=== PATIENT | male | born 1945 | race Caucasian/White ===

== ENCOUNTER 2019-07-01 19:36 | Inpatient (IN) ==
--- NOTE | 2019-07-01 20:06 | Emergency Department Note ---
History of Present Illness General Chief complaint: Hematuria Stated complaint: HEMATURIA Time Seen by Provider: 07/01/19 19:37 Source: patient and EMS Mode of arrival: EMS Limitations: altered mental status History of Present Illness Provider complaint: Hematuria, urinary frequency Onset (ago): day(s) 5 Location: abdomen Pain Consistency: + colicky Current Pain Intensity: 0 Relieved By: + none Exacerbated By: + none Associated symptoms: + denies other symptoms Treatments prior to arrival: none This is a 74-year-old male from [facility] who presents via EMS with complaints of hematuria. Per EMS when they picked the patient up in the [facility], they were told that patient had complained of hematuria for 5 days. They tried to perform a straight cath in the [facility] and were unsuccessful. They state the patient is on blood thinners, Coumadin. There is also reported confusion. Patient here knows his name, does not know the date, and tells me that he is only had hematuria for 1 day instead. Patient denies any prior history of kidney stones, urine infections, or any other problems with his kidneys. Patient admits to intermittent abdominal pain over the last several days. Denies any back pain. Denies fevers or chills. EMS reports that his temperature in the [facility] was 99.2. EMS also reports the infirmary had started IV fluids and the patient, however much of this appears to have infiltrated into his upper extremity near the IV site. HPI limited by confusion. Additional paperwork from nursing home also noted pt had outpt labs done earlier today as well. No paper results accompanying but were found in our EMR. Pt with WBC 19 from earlier today. Pt seen during a time of high acuity and national emergency pandemic while wearing PPE. Home Medications Home Medications Medication Instructions Recorded Confirmed Type ciclesonide [Alvesco] 1 puff INHALATION BID 07/01/19 07/01/19 History diltiazem HCl 30 mg PO TID 07/01/19 07/01/19 History levalbuterol tartrate [Xopenex HFA] 2 inh INHALATION QID 07/01/19 07/01/19 History levothyroxine 137 mcg PO QAM 07/01/19 07/01/19 History rosuvastatin 40 mg PO QPM 07/01/19 07/01/19 History sertraline 75 mg PO QAM 07/01/19 07/01/19 History sulfamethoxazole-trimethoprim 1 tab PO BID 07/01/19 07/01/19 History [Bactrim DS] warfarin 5 mg PO QPM 07/01/19 07/01/19 History Allergies Allergy/AdvReac Type Severity Reaction Status Date / Time No Known Allergies Allergy Verified 07/01/19 19:55 Past Med/Surg History Medical History COPD (chronic obstructive pulmonary disease) Dyslipidemia Hypertension Hypothyroid Neurocognitive disorder Family History Sister Seizures Other No significant family history Social History Preferred Language: Indonesian Communication Ability: Effective Business Risk Consultant Required: No Beliefs That Will Affect Care: None Current Living Situation: Other Current Living Situation Comment: Half-Way Feels Safe at Home: Yes Smoking Status: Unknown if ever smoked Hx Alcohol Use: No Hx Substance Use: No Review of Systems Unobtainable due to cognitive status Physical Exam Vital Signs Vital Signs - 24 hr 07/01/19 19:52 Temperature 37.1 C Temperature Source Oral Pulse Rate 97 H Respiratory Rate 20 Respiratory Effort / Characteristics Non-Labored Spontaneous Respiratory Depth Normal Respiratory Pattern Regular Blood Pressure 156/62 H Blood Pressure Mean 93 Pulse Oximetry 94 Oxygen Delivery Method Room Air Sepsis Recent Fever Within 48 Hours No Sepsis New/Unexplained Change in Mental Status No Sepsis Action Taken by Nursing No Action Required GENERAL: alert, well appearing, well nourished, no distress, non-toxic EYE EXAM: normal conjunctiva, PERRL and EOM's grossly intact OROPHARYNX: no exudate, no erythema, lips, buccal mucosa, and tongue normal and mucous membranes are moist NECK: supple, no nuchal rigidity, no adenopathy, non-tender LUNGS: Clear but decreased to auscultation. Normal chest wall mechanics, no w/r/r HEART: no murmurs, S1 normal and S2 normal ABDOMEN: abdomen soft, non-tender, normo-active bowel sounds, no masses, no rebound or guarding. BACK: Back is symmetrical on inspection and there is no deformity, no midline tenderness, no CVA tenderness. SKIN: no rashes and no bruising UPPER EXTREMITIES: upper extremities are grossly normal. FROM, nml pulses b/l. LOWER EXTREMITIES: No pitting edema. FROM, nml pulses b/l. NEURO EXAM: Pleasantly confused, cranial nerves II-XII grossly intact, normal speech, no gross weakness of arms, no gross weakness of legs. Gross sensation intact. Course Course 1954: Bedside ultrasound performed to evaluate the bladder and kidneys. No obvious renal stones or hydro. Bedside bladder scan by nursing staff with <50 ml and pt urinated a small amount on arrival here. No gross blood. 2119: Case discussed with Dr. Yarbrough for additional evaluation. In the interim, guards notified nursing staff that pt's cognition is his usual state and [facility] staff didn't feel this was a new finding or worse compared to baseline. No listing of dementia in paperwork Administered Medications Acetaminophen (Tylenol) 650 mg PO Q4H PRN PRN Reason: pain/fever Stop: 07/31/19 23:35 Last Admin: 07/04/19 18:58 Dose: 650 mg Documented by: [id number] Diltiazem HCl (Cardizem) 30 mg PO QID KAREN Stop: 08/04/19 16:59 Last Admin: 07/05/19 16:35 Dose: 30 mg Documented by: [id number] Fluticasone Furoate (Arnuity Ellipta 100mcg) 1 puffs INH DAILY KAREN Stop: 08/01/19 08:59 Last Admin: 07/05/19 08:54 Dose: 1 puffs Documented by: [id number] Admin: 07/04/19 08:12 Dose: 1 puffs Documented by: [id number] Admin: 07/03/19 08:45 Dose: 1 puffs Documented by: [id number] Admin: 07/02/19 09:18 Dose: 1 puffs Documented by: [id number] Folic Acid (Folvite) 400 mcg PO QAM KAREN Stop: 08/04/19 13:59 Last Admin: 07/05/19 14:21 Dose: 400 mcg Documented by: [id number] Ioversol (Optiray 320 100ml) 94 ml IV ONCE PRN PRN Reason: Interaction Checking Stop: 07/08/19 09:58 Last Admin: 07/04/19 10:01 Dose: 94 ml Documented by: [id number] Levalbuterol HCl (Xopenex Hfa) 2 puffs INH QID PRN; Protocol PRN Reason: Shortness Of Breath Or Wheezing Stop: 08/01/19 08:59 Last Admin: 07/04/19 07:09 Dose: 2 puffs Documented by: [id number] Levetiracetam (Keppra) 500 mg PO BID [facility] Stop: 08/03/19 08:59 Last Admin: 07/05/19 08:55 Dose: 500 mg Documented by: [id number] Admin: 07/04/19 21:12 Dose: 500 mg Documented by: [id number] Admin: 07/04/19 08:11 Dose: 500 mg Documented by: [id number] Levothyroxine Sodium (Levothyroxine Sodium) 137 mcg PO DAILYBB [facility] Stop: 08/01/19 06:29 Last Admin: 07/05/19 05:44 Dose: 137 mcg Documented by: [id number] Admin: 07/04/19 05:41 Dose: 137 mcg Documented by: [id number] Admin: 07/03/19 05:36 Dose: 137 mcg Documented by: [id number] Admin: 07/02/19 06:12 Dose: 137 mcg Documented by: [id number] Lisinopril (Zestril) 5 mg PO QAM [facility] Stop: 08/04/19 11:14 Last Admin: 07/05/19 11:33 Dose: 5 mg Documented by: [id number] Rosuvastatin Calcium (Crestor) 40 mg PO QPM [facility] Stop: 08/01/19 20:59 Last Admin: 07/04/19 21:12 Dose: 40 mg Documented by: [id number] Admin: 07/03/19 21:40 Dose: 40 mg Documented by: [id number] Admin: 07/02/19 22:17 Dose: Not Given Documented by: [id number] Sertraline HCl (Zoloft) 75 mg PO QAM [facility] Stop: 08/01/19 08:59 Last Admin: 07/05/19 08:54 Dose: 75 mg Documented by: [id number] Admin: 07/04/19 08:12 Dose: 75 mg Documented by: [id number] Admin: 07/03/19 08:45 Dose: 75 mg Documented by: [id number] Admin: 07/02/19 09:18 Dose: 75 mg Documented by: [id number] Tamsulosin HCl (Flomax) 0.4 mg PO [facility] Stop: 08/01/19 20:59 Last Admin: 07/04/19 21:12 Dose: 0.4 mg Documented by: [id number] Admin: 07/03/19 21:40 Dose: 0.4 mg Documented by: [id number] Admin: 07/02/19 22:18 Dose: Not Given Documented by: [id number] Trimethoprim/Sulfamethoxazole (Septra Ds 800/160mg Tab) 1 tab PO Q12 [facility] Stop: 07/15/19 08:59 Last Admin: 07/05/19 09:12 Dose: 1 tab Documented by: [id number] Vitamin D (Vitamin D3) 1,000 units PO QAM [facility] Stop: 08/03/19 08:59 Last Admin: 07/05/19 08:54 Dose: 1,000 units Documented by: [id number] Admin: 07/04/19 09:08 Dose: 1,000 units Documented by: [id number] Warfarin Sodium (Coumadin) 5 mg PO DAILY@1600 [facility] Stop: 08/01/19 15:59 Last Admin: 07/05/19 16:36 Dose: 5 mg Documented by: [id number] Admin: 07/04/19 15:33 Dose: 5 mg Documented by: [id number] Admin: 07/03/19 16:45 Dose: 5 mg Documented by: [id number] Admin: 07/02/19 16:29 Dose: 5 mg Documented by: [id number] Discontinued Medications Diltiazem HCl (Cardizem) 30 mg PO TID [facility] Stop: 08/01/19 08:59 Last Admin: 07/05/19 13:39 Dose: 30 mg Documented by: [id number] Admin: 07/05/19 08:54 Dose: 30 mg Documented by: [id number] Admin: 07/04/19 21:11 Dose: 30 mg Documented by: [id number] Admin: 07/04/19 13:29 Dose: 30 mg Documented by: [id number] Admin: 07/04/19 08:11 Dose: 30 mg Documented by: [id number] Admin: 07/03/19 21:40 Dose: 30 mg Documented by: [id number] Admin: 07/03/19 12:55 Dose: 30 mg Documented by: [id number] Admin: 07/03/19 08:45 Dose: 30 mg Documented by: [id number] Admin: 07/02/19 22:15 Dose: Not Given Documented by: [id number] Admin: 07/02/19 13:50 Dose: 30 mg Documented by: [id number] Admin: 07/02/19 09:19 Dose: 30 mg Documented by: [id number] Ceftriaxone Sodium (Rocephin) 2,000 mg in 70 mls @ 140 mls/hr IV NOW STA Stop: 07/01/19 21:37 Last Infusion: 07/01/19 22:27 Dose: 0 mls/hr Documented by: [id number] Admin: 07/01/19 21:51 Dose: 140 mls/hr Documented by: [id number] Sodium Chloride (Nss 1000ml) 1,000 mls @ 999 mls/hr IV .Q1H1M ONE Stop: 07/01/19 22:10 Last Infusion: 07/02/19 00:37 Dose: 0 mls/hr Documented by: [id number] Admin: 07/01/19 21:52 Dose: 999 mls/hr Documented by: [id number] Sodium Chloride (Nss 1000ml) 1,000 mls @ 80 mls/hr IV .[id number] KAREN Stop: 07/02/19 12:05 Last Infusion: 07/02/19 13:55 Dose: 0 mls/hr Documented by: [id number] Admin: 07/02/19 00:20 Dose: 80 mls/hr Documented by: [id number] Ceftriaxone Sodium 1,000 mg/ (Dextrose) 50 mls @ 100 mls/hr IV Q24H [facility]; Protocol Stop: 07/10/19 22:29 Last Infusion: 07/04/19 21:58 Dose: 0 mls/hr Documented by: [id number] Admin: 07/04/19 21:13 Dose: 100 mls/hr Documented by: [id number] Infusion: 07/03/19 22:14 Dose: 0 mls/hr Documented by: [id number] Admin: 07/03/19 21:41 Dose: 100 mls/hr Documented by: [id number] Infusion: 07/02/19 23:38 Dose: 0 mls/hr Documented by: [id number] Admin: 07/02/19 22:18 Dose: 100 mls/hr Documented by: [id number] Sodium Chloride (Nss 1000ml) 1,000 mls @ 80 mls/hr IV .[id number] KAREN Stop: 08/01/19 14:14 Last Infusion: 07/04/19 08:29 Dose: 0 mls/hr Documented by: [id number] Admin: 07/04/19 03:39 Dose: 80 mls/hr Documented by: [id number] Infusion: 07/04/19 02:20 Dose: 80 mls/hr Documented by: [id number] Admin: 07/03/19 13:50 Dose: 80 mls/hr Documented by: [id number] Infusion: 07/03/19 13:48 Dose: 0 mls/hr Documented by: [id number] Admin: 07/03/19 03:06 Dose: 80 mls/hr Documented by: [id number] Infusion: 07/03/19 03:00 Dose: 80 mls/hr Documented by: [id number] Admin: 07/02/19 14:30 Dose: 80 mls/hr Documented by: [id number] Sodium Chloride (Nss 1000ml) 1,000 mls @ 999 mls/hr IV .Q1H1M ONE Stop: 07/02/19 22:25 Last Admin: 07/02/19 23:38 Dose: Not Given Documented by: [id number] Sodium Chloride (Nss 1000ml) 500 mls @ 999 mls/hr IV .Q31M ONE Stop: 07/02/19 22:50 Last Infusion: 07/03/19 00:59 Dose: 0 mls/hr Documented by: [id number] Admin: 07/02/19 23:15 Dose: 999 mls/hr Documented by: [id number] Levetiracetam 1,000 mg/ Sodium (Chloride) 110 mls @ 440 mls/hr IV NOW ONE Stop: 07/03/19 11:44 Last Infusion: 07/03/19 12:14 Dose: 0 mls/hr Documented by: [id number] Admin: 07/03/19 11:45 Dose: 440 mls/hr Documented by: [id number] Lisinopril (Zestril) 5 mg PO NOW ONE Stop: 07/04/19 18:26 Last Admin: 07/04/19 18:55 Dose: 5 mg Documented by: [id number] Potassium Chloride (Klor-Con M20) 40 meq PO NOW STA Stop: 07/05/19 09:22 Last Admin: 07/05/19 09:47 Dose: 40 meq Documented by: [id number] Medical Decision Making Differential Diagnosis DDx includes acute kidney injury, UTI, ureterolithiasis, prostatitis, bladder polyp, mass/tumor, trauma, as well as others were considered Medical Records Attestation: I reviewed the patient's medical records. Home Medications Current Medication List: was personally reviewed by me Laboratory Data Attestation: I reviewed the patient's lab results. Result diagrams: 07/05/19 06:37 07/05/19 06:37 Lab Results 07/01/19 07/01/19 07/01/19 Range/Units 19:45 20:12 20:12 PT (9.0-12.0) Seconds INR (0.9-1.1) Lactate 1.5 (0.4-2.0) mmol/L Phosphorus (2.5-4.9) mg/dl Magnesium (1.8-2.4) mg/dl Procalcitonin 1.32 H (0-0.5) ng/ml Urine Color Dark Yellow Urine Appearance Turbid A (Clear) Urine pH 5.0 (4.5-7.5) Ur Specific Shunk 1.027 (1.000-1.030) Urine Protein 3+ H (Negative) Urine Glucose (UA) Negative (Negative) Urine Ketones Trace H (Negative) Urine Blood 3+ H (Negative) Urine Nitrite Positive A (Negative) Urine Bilirubin Negative (Negative) Urine Urobilinogen Negative (Negative) Ur Leukocyte Esterase 2+ H (Negative) Urine WBC (Auto) >30 H (0-5) /hpf Urine RBC (Auto) >30 H (0-4) /hpf U Hyaline Cast (Auto) 5-10 H (0-5) /lpf U Epithel Cells (Auto) 10-20 H (0-5) /lpf Urine Bacteria (Auto) 1+ H (Negative) Urine Yeast Present A (None Prsent) Hepatitis C Ab Screen (Neg) 07/01/19 07/01/19 07/01/19 Range/Units 20:12 20:12 20:20 PT 21.0 H (9.0-12.0) Seconds INR 2.1 H (0.9-1.1) Lactate (0.4-2.0) mmol/L Phosphorus 2.7 (2.5-4.9) mg/dl Magnesium 2.1 (1.8-2.4) mg/dl Procalcitonin (0-0.5) ng/ml Urine Color Urine Appearance (Clear) Urine pH (4.5-7.5) Ur Specific Shunk (1.000-1.030) Urine Protein (Negative) Urine Glucose (UA) (Negative) Urine Ketones (Negative) Urine Blood (Negative) Urine Nitrite (Negative) Urine Bilirubin (Negative) Urine Urobilinogen (Negative) Ur Leukocyte Esterase (Negative) Urine WBC (Auto) (0-5) /hpf Urine RBC (Auto) (0-4) /hpf U Hyaline Cast (Auto) (0-5) /lpf U Epithel Cells (Auto) (0-5) /lpf Urine Bacteria (Auto) (Negative) Urine Yeast (None Prsent) Hepatitis C Ab Screen Neg (Neg) Imaging Data Radiologist's Impression: CT head/brain wo con CLINICAL HISTORY: 74 years-old Male with confusion. Acutely altered mental status with confusion TECHNIQUE: Multiple axial CT images of the head were obtained without contrast. A dose lowering technique was utilized adhering to the principles of ALARA. COMPARISON: None. FINDINGS: No acute intracranial hemorrhage, midline shift, intracranial mass, hydrocephalus, territorial ischemia or abnormal extra-axial collection. Age- related involutional changes with ex vacuo ventriculomegaly. Mild patchy white matter hypodensities suggest chronic microvascular ischemic disease. Cerebral vascular calcifications are noted. The calvarium is intact. The paranasal sinuses, mastoid air cells, and middle ear cavities are clear. IMPRESSION: No acute intracranial abnormality. ACT 112: Negative or not required by law. The above report was generated using voice recognition software. It may contain grammatical, syntax or spelling errors. Electronically signed by: Mick Tom M.D. 07/01/2019 8:44 PM ABDOMEN AND PELVIS CT WITHOUT CONTRAST CT DOSE: 2595.51 mGy.cm HISTORY: Acute hematuria hematuria, frequency TECHNIQUE: Multiaxial CT images of the abdomen and pelvis were performed without contrast. A dose lowering technique was utilized adhering to the principles of ALARA. COMPARISON STUDY: None. FINDINGS: Clear lung bases. No pneumatosis or pneumoperitoneum. Study is minimally motion degraded. Coronary artery calcifications. No pericardial effusion. Spleen, and pancreas are unremarkable. Mild thickening of the adrenal glands suggests hyperplasia. Layering hyperdense foci within the gallbladder is suggestive of cholelithiasis. Vicarious excretion of recently administered contrast could appear similarly. Hepatic steatosis. Nonspecific bilateral perinephric stranding. 10 mm lesion of the anterior inte rpolar left kidney and 3.4 cm lesion of the inferior pole right kidney are suggestive of probable cysts. No renal or ureteral calculi or obstructive uropathy. Ureters are unremarkable. Partial distention of the urinary bladder which demonstrates moderate circumferential wall thickening, diverticula and trabeculation. Prostamegaly. Perivesicular stranding is noted with additional inflammation surrounding the prostate. Extensive calcified plaque the abdominal aorta. Prominent retroperitoneal and iliac chain lymph nodes measure up to 7-8 mm. Calcifications of the vas deferens. Colonic diverticulosis. Circumferential wall thickening of the rectum with perirectal stranding. Noninflamed appendix. Soft tissues are unremarkable. Small left paracentral fat filled ventral abdominal hernia, diastases 1.7 cm. Degenerative changes of the spine, pelvis and hips. Healed remote left-sided rib fractures. Grade 2 anterolisthesis L5 on S1 with remote pars defects. Age- indeterminate superior and anterior endplate compression deformities at T11-L4. No definite paravertebral edema. IMPRESSION: 1. Prostamegaly with findings compatible with chronic bladder outlet obstruction. Additionally, there is moderate perivesicular inflammatory stranding with additional edema surrounding the prostate, and seminal vesicles extending into the perirectal distribution. Findings may represent superimposed cystitis/prostatitis. 2. Rectal wall thickening is likely reactive secondary to the aforementioned inflammatory changes. Acute proctitis considered less likely. 3. Colonic diverticulosis without acute diverticulitis. 4. No bowel obstruction. 5. Layering hyperdensities within the gallbladder lumen are suggestive of cholelithiasis. Vicarious excretion from recent contrast-enhanced study could appear similarly. 6. Multiple age-indeterminate thoracic and lumbar compression deformities without paravertebral edema, likely chronic. 7. Additional findings as above. ACT 112: Negative or not required by law. The above report was generated using voice recognition software. It may contain grammatical, syntax or spelling errors. Electronically signed by: Mick Tom M.D. 07/01/2019 9:11 PM Blood Pressure Blood Pressure Findings: Elevated blood pressure Blood Pressure Disposition: further management by hospitalist TRACY Reddy This is a prisoner sent in for evaluation of hematuria. Pt unable to give much history but could answer some ROS questions. Minimal hx given from nursing home staff or records sent with. Pt did have some outpt labs earlier today. Additional labs added on arrivel. BLadder scan with no acute urinary retention, pt urinated spontaneously on arrival. No apparent distress however pt is confused and no documention of dementia. Additionally, NH staff reported this is usual for the patient. CT head unremarkable and CT a/p with additional findings that likely correspond to pt's apparent UTI. Pt given IV rocephin. Lactate reassuring however procalcitonin slightly elevated. Given difficult picture and apparent infection, case discussed with hospitalist. Pt continued to void spontaneously here so no catheter placed despite bladder outlet obstruction noted on CT which is likely chronic. We will defer this pending additional urology evaluation. Pt given cautious IV rehydration. Possible evolving sepsis. Pt not tachycardic or febrile on arrival. I suspect cognitive problems chronic. I feel periprostatic inflammation likely from UTI and less likely from prostatitis. An order was placed for continuous cardiac monitoring. The monitor shows a rate of 70 with normal sinus rhythm. Impression & Plan UTI (urinary tract infection), Hypertension, Hematuria, Hypokalemia, Acute confusion, Bladder outlet obstruction Discharge Plan Visit Data *Final* Discharge Date/Time: 07/01/19 23:16 Chief Complaint: Hematuria Stated Complaint: HEMATURIA ED Provider: Coco Au Discharge Problem: UTI (urinary tract infection), Hypertension, Hematuria, Hypokalemia, Acute confusion, Bladder outlet obstruction Patient Disposition: Admitted As Inpatient Discharge Instructions Interventions: ED Discharge Assessment Last Done: 07/01/19 23:16 Discharge Problem: UTI (urinary tract infection) Qualifiers: Urinary tract infection type: acute cystitis Hematuria presence: with hematuria Qualified Code(s): N30.01 - Acute cystitis with hematuria Hypertension Qualifiers: Hypertension type: essential hypertension Qualified Code(s): I10 - Essential (primary) hypertension Hematuria Qualifiers: Hematuria type: other microscopic Qualified Code(s): R31.29 - Other microscopic hematuria
[2019-07-01 20:29] LABS: Appearance Urine Turbid (Clear); Bacteria Urine Automated 1+ (Negative); Bilirubin Urine Negative (Negative); Blood Urine 3+ (Negative); Color Urine Dark Yellow; Glucose Urine UA Negative (Negative); Ketones Urine Trace (Negative); Leukocyte Esterase Urine 2+ (Negative); Nitrite Urine Positive (Negative); Protein Urine 3+ (Negative); Specific Gravity Urine 1.027 (1.000-1.030); Urobilinogen Urine Negative (Negative); WBC Urine Automated >30 /hpf (0-5)
[2019-07-01 20:35] LABS: RBC Urine Automated >30 /hpf (0-4)
[2019-07-01 20:37] LABS: INR 2.1 (0.9-1.1)
--- NOTE | 2019-07-01 20:45 | CT Scan Report ---
CT head/brain wo con CLINICAL HISTORY: 74 years-old Male with confusion. Acutely altered mental status with confusion TECHNIQUE: Multiple axial CT images of the head were obtained without contrast. A dose lowering tech nique was utilized adhering to the principles of ALARA. COMPARISON: None. FINDINGS: No acute intracranial hemorrhage, midline shift, intracranial mass, hydrocephalus, territorial ischem ia or abnormal extra-axial collection. Age-related involutional changes with ex vacuo ventriculomegal y. Mild patchy white matter hypodensities suggest chronic microvascular ischemic disease. Cerebral va scular calcifications are noted. The calvarium is intact. The paranasal sinuses, mastoid air cells, and middle ear cavities are clear . IMPRESSION: No acute intracranial abnormality. ACT 112: Negative or not required by law. The above report was generated using voice recognition software. It may contain grammatical, syntax o r spelling errors. Electronically signed by: Mick Tom M.D. 07/01/2019 8:44 PM
[2019-07-01] MEDS ORDERED: cefTRIAXone SODIUM 2,000 MG/70 ML BAG IV STA (21:08)
[2019-07-01] MEDS ORDERED: SODIUM CHLORIDE 0.9% 1000ML 1,000 ML IV ONE (21:10)
--- NOTE | 2019-07-01 21:12 | CT Scan Report ---
ABDOMEN AND PELVIS CT WITHOUT CONTRAST CT DOSE: 2595.51 mGy.cm HISTORY: Acute hematuria hematuria, frequency TECHNIQUE: Multiaxial CT images of the abdomen and pelvis were performed without contrast. A dose lo wering technique was utilized adhering to the principles of ALARA. COMPARISON STUDY: None. FINDINGS: Clear lung bases. No pneumatosis or pneumoperitoneum. Study is minimally motion degraded. Coronary ar nicanor calcifications. No pericardial effusion. Spleen, and pancreas are unremarkable. Mild thickening of the adrenal glands suggests hyperplasia. Layering hyperdense foci within the gallbladder is sugges tive of cholelithiasis. Vicarious excretion of recently administered contrast could appear similarly. Hepatic steatosis. Nonspecific bilateral perinephric stranding. 10 mm lesion of the anterior interpolar left kidney and 3.4 cm lesion of the inferior pole right kidney are suggestive of probable cysts. No renal or uretera l calculi or obstructive uropathy. Ureters are unremarkable. Partial distention of the urinary bladde r which demonstrates moderate circumferential wall thickening, diverticula and trabeculation. Prostam egaly. Perivesicular stranding is noted with additional inflammation surrounding the prostate. Extens evans calcified plaque the abdominal aorta. Prominent retroperitoneal and iliac chain lymph nodes measu re up to 7-8 mm. Calcifications of the vas deferens. Colonic diverticulosis. Circumferential wall thickening of the rectum with perirectal stranding. Dayanna nflamed appendix. Soft tissues are unremarkable. Small left paracentral fat filled ventral abdominal hernia, diastases 1.7 cm. Degenerative changes of the spine, pelvis and hips. Healed remote left-side d rib fractures. Grade 2 anterolisthesis L5 on S1 with remote pars defects. Age-indeterminate superio r and anterior endplate compression deformities at T11-L4. No definite paravertebral edema. IMPRESSION: 1. Prostamegaly with findings compatible with chronic bladder outlet obstruction. Additionally, there is moderate perivesicular inflammatory stranding with additional edema surrounding the prostate, and seminal vesicles extending into the perirectal distribution. Findings may represent superimposed cys titis/prostatitis. 2. Rectal wall thickening is likely reactive secondary to the aforementioned inflammatory changes. Ac [place] proctitis considered less likely. 3. Colonic diverticulosis without acute diverticulitis. 4. No bowel obstruction. 5. Layering hyperdensities within the gallbladder lumen are suggestive of cholelithiasis. Vicarious e xcretion from recent contrast-enhanced study could appear similarly. 6. Multiple age-indeterminate thoracic and lumbar compression deformities without paravertebral edema , likely chronic. 7. Additional findings as above. ACT 112: Negative or not required by law. The above report was generated using voice recognition software. It may contain grammatical, syntax o r spelling errors. Electronically signed by: Mick Tom M.D. 07/01/2019 9:11 PM
--- NOTE | 2019-07-01 22:31 | History & Physical Report ---
Date of Service July 01, 2019 Assessment & Plan (1) Hematuria: Gross hematuria, ?UTI/Prostatitis, traumatic catheterization at outside facility contributing as well. Patient on Coumadin. INR therapeutic at 2.1. Hemodynamically stable. -Monitor I/Os. If UOP stops will bladder scan, place Reyes for irrigation -Flomax 0.4mg po daily -Urology consultation, appreciate assistance with this case Present on Admission?: Yes (2) UTI (urinary tract infection): Patient afebrile, HD stable, nontoxic in appearance. +Leukocytosis with WBC=19 -Follow urine culture -Monitor I/O -Ceftriaxone 1gm IV daily Present on Admission?: Yes (3) Hypertension: Blood pressure stable -Continue Diltiazem 30mg po TID ?History of arrhythmia, AF or AFlutter - no record of this in [facility] paperwork or our records - patient on Diltiazem and Coumadin. Uncertain why on Coumadin. Present on Admission?: Yes (4) Dyslipidemia: Chronic. -Continue Crestor Present on Admission?: Yes (5) Hypothyroid: Chronic -Check TSH with AM labs Present on Admission?: Yes (6) COPD (chronic obstructive pulmonary disease): Chronic. No SOB/cough/wheeze at present -Xopenex, Alves[place] -Continue to monitor F/E/N - NSS at 80mL/hr x 1 liter, monitor electrolytes and replete as needed, heart healthy diet as tolerated Ppx - Coumadin, therapeutic INR Code - Full Dispo - Admit to medical floor Present on Admission?: Yes Admission and Anticipated Discharge Date Admission Date: 07/01/19 Anticipated date of discharge: 07/03/19 History of Present Illness Chief Complaint: Hematuria Primary Care Provider: [facility] Ted Irvin is a 74yo C male with history of HTN, HLP, COPD, Hypothyroidism and Neurocognitive disorder presenting from [facility] with complaint of hematuria x 1 day. He states that this AM around O4:00 he began urinating small amounts of dark red blood. Also with urinary urgency, frequency and dribbling. He reports difficulty starting his urinary stream today and needing to strain. Patient had blood work performed at the [facility] at [facility] which showed a WBC=19.38, Hgb=12.8 and Hct=35.7. A straight cath was attempted and was unsuccessful, leading to increased bleeding as well. On arrival to the ER patient afebrile, HD stable. Bladder scan was performed which showed <50mL of urine. No Reyes or straight cath attempted. Patient continues to void frequent small amounts of blood. Additionally he complaints of some suprapubic discomfort, fevers and chills x 1 day. ER Course: Ceftriaxone, NSS Allergies Allergy/AdvReac Type Severity Reaction Status Date / Time No Known Allergies Allergy Verified 07/01/19 19:55 Home Medications Home Medications Medication Instructions Recorded Confirmed Type ciclesonide [Alvesco] 1 puff INHALATION BID 07/01/19 07/01/19 History diltiazem HCl 30 mg PO TID 07/01/19 07/01/19 History levalbuterol tartrate [Xopenex HFA] 2 inh INHALATION QID 07/01/19 07/01/19 History levothyroxine 137 mcg PO QAM 07/01/19 07/01/19 History rosuvastatin 40 mg PO QPM 07/01/19 07/01/19 History sertraline 75 mg PO QAM 07/01/19 07/01/19 History sulfamethoxazole-trimethoprim 1 tab PO BID 07/01/19 07/01/19 History [Bactrim DS] warfarin 5 mg PO QPM 07/01/19 07/01/19 History Past Med/Surg History Medical History (Updated 07/01/19 @ 22:55 by Celina Yarbrough DO) COPD (chronic obstructive pulmonary disease) Dyslipidemia Hypertension Hypothyroid Neurocognitive disorder Family History (Updated 07/01/19 @ 22:37 by Celina Yarbrough DO) Other No significant family history Social History (System 07/01/19 @ 19:49 by Alesia Cabrera) Preferred Language: Greek Feels Safe at Home: Yes Smoking Status: Former smoker Review of Systems Review of Systems: All systems reviewed & are unremarkable except as noted in HPI & below Physical Exam Physical Exam: General: patient resting comfortably, NAD, non-toxic in appearance, AA&O to self and location Skin: warm, dry, intact, no rashes or lesions HEENT: NC/AT, PERRL, EOMI, anicteric sclera, conjunctiva without injection, external ear normal to inspection and nontender, nares patent, moist mucus membranes, dentition intact, no oropharyngeal lesions, neck supple, trachea midline, no LAD, no thyromegaly, no JVD Heart: +S1/S2, regular, no m/r/g Lungs: equal air entry bilaterally, no rales/rhonchi/wheezes Abd: +BS, soft, NT/ND, no masses/organomegaly/ascites Ext: warm, 2+ pulses in UE/LE bilaterally, no clubbing/cyanosis or edema Neuro: nonfocal, patient AA&O x 4, speech intact, no facial droop, moving all extremities on command with equal strength 5/5 Results & Data Results & Data ([facility]) Vital Signs (Past 12 Hours) Vital Signs Temp Pulse Resp BP Pulse Ox 07/01/19 21:30 88 07/01/19 21:01 90 07/01/19 21:00 90 20 130/67 93 07/01/19 20:50 90 07/01/19 20:30 90 19 140/65 07/01/19 19:52 37.1 C 97 H 20 156/62 H 94 Laboratory Results Lab Results 07/01/19 07/01/19 07/01/19 Range/Units 19:45 20:12 20:12 PT (9.0-12.0) Seconds INR (0.9-1.1) Lactate 1.5 (0.4-2.0) mmol/L Procalcitonin 1.32 H (0-0.5) ng/ml Urine Color Dark Yellow Urine Appearance Turbid A (Clear) Urine pH 5.0 (4.5-7.5) Ur Specific [place] 1.027 (1.000-1.030) Urine Protein 3+ H (Negative) Urine Glucose (UA) Negative (Negative) Urine Ketones Trace H (Negative) Urine Blood 3+ H (Negative) Urine Nitrite Positive A (Negative) Urine Bilirubin Negative (Negative) Urine Urobilinogen Negative (Negative) Ur Leukocyte Esterase 2+ H (Negative) Urine WBC (Auto) >30 H (0-5) /hpf Urine RBC (Auto) >30 H (0-4) /hpf U Hyaline Cast (Auto) 5-10 H (0-5) /lpf U Epithel Cells (Auto) 10-20 H (0-5) /lpf Urine Bacteria (Auto) 1+ H (Negative) Urine Yeast Present A (None Prsent) 05/17/20 Range/Units 20:12 PT 21.0 H (9.0-12.0) Seconds INR 2.1 H (0.9-1.1) Lactate (0.4-2.0) mmol/L Procalcitonin (0-0.5) ng/ml Urine Color Urine Appearance (Clear) Urine pH (4.5-7.5) Ur Specific [place] (1.000-1.030) Urine Protein (Negative) Urine Glucose (UA) (Negative) Urine Ketones (Negative) Urine Blood (Negative) Urine Nitrite (Negative) Urine Bilirubin (Negative) Urine Urobilinogen (Negative) Ur Leukocyte Esterase (Negative) Urine WBC (Auto) (0-5) /hpf Urine RBC (Auto) (0-4) /hpf U Hyaline Cast (Auto) (0-5) /lpf U Epithel Cells (Auto) (0-5) /lpf Urine Bacteria (Auto) (Negative) Urine Yeast (None Prsent) Diagnostic Findings ABDOMEN AND PELVIS CT WITHOUT CONTRAST CT DOSE: 2595.51 mGy.cm HISTORY: Acute hematuria hematuria, frequency TECHNIQUE: Multiaxial CT images of the abdomen and pelvis were performed without contrast. A dose lowering technique was utilized adhering to the principles of ALARA. COMPARISON STUDY: None. FINDINGS: Clear lung bases. No pneumatosis or pneumoperitoneum. Study is minimally motion degraded. Coronary artery calcifications. No pericardial effusion. Spleen, and pancreas are unremarkable. Mild thickening of the adrenal glands suggests hyperplasia. Layering hyperdense foci within the gallbladder is suggestive of cholelithiasis. Vicarious excretion of recently administered contrast could appear similarly. Hepatic steatosis. Nonspecific bilateral perinephric stranding. 10 mm lesion of the anterior interpolar left kidney and 3.4 cm lesion of the inferior pole right kidney are suggestive of probable cysts. No renal or ureteral calculi or obstructive uropathy. Ureters are unremarkable. Partial distention of the urinary bladder which demonstrates moderate circumferential wall thickening, diverticula and trabeculation. Prostamegaly. Perivesicular stranding is noted with additional inflammation surrounding the prostate. Extensive calcified plaque the abdominal aorta. Prominent retroperitoneal and iliac chain lymph nodes measure up to 7-8 mm. Calcifications of the vas deferens. Colonic diverticulosis. Circumferential wall thickening of the rectum with perirectal stranding. Noninflamed appendix. Soft tissues are unremarkable. Small left paracentral fat filled ventral abdominal hernia, diastases 1.7 cm. Degenerative changes of the spine, pelvis and hips. Healed remote left-sided rib fractures. Grade 2 anterolisthesis L5 on S1 with remote pars defects. Age- indeterminate superior and anterior endplate compression deformities at T11-L4. No definite paravertebral edema. IMPRESSION: 1. Prostamegaly with findings compatible with chronic bladder outlet obstruction. Additionally, there is moderate perivesicular inflammatory stranding with additional edema surrounding the prostate, and seminal vesicles extending into the perirectal distribution. Findings may represent superimposed cystitis/prostatitis. 2. Rectal wall thickening is likely reactive secondary to the aforementioned inflammatory changes. Acute proctitis considered less likely. 3. Colonic diverticulosis without acute diverticulitis. 4. No bowel obstruction. 5. Layering hyperdensities within the gallbladder lumen are suggestive of cholelithiasis. Vicarious excretion from recent contrast-enhanced study could appear similarly. 6. Multiple age-indeterminate thoracic and lumbar compression deformities without paravertebral edema, likely chronic. 7. Additional findings as above. ACT 112: Negative or not required by law. The above report was generated using voice recognition software. It may contain grammatical, syntax or spelling errors. Electronically signed by: Mick Tom M.D. 07/01/2019 9:11 PM Dictated: 07/01/192051 Transcribed: 07/01/192051 CT head/brain wo con CLINICAL HISTORY: 74 years-old Male with confusion. Acutely altered mental status with confusion TECHNIQUE: Multiple axial CT images of the head were obtained without contrast. A dose lowering technique was utilized adhering to the principles of ALARA. COMPARISON: None. FINDINGS: No acute intracranial hemorrhage, midline shift, intracranial mass, hy drocephalus, territorial ischemia or abnormal extra-axial collection. Age- related involutional changes with ex vacuo ventriculomegaly. Mild patchy white matter hypodensities suggest chronic microvascular ischemic disease. Cerebral vascular calcifications are noted. The calvarium is intact. The paranasal sinuses, mastoid air cells, and middle ear cavities are clear. IMPRESSION: No acute intracranial abnormality. ACT 112: Negative or not required by law. The above report was generated using voice recognition software. It may contain grammatical, syntax or spelling errors. Electronically signed by: Mick Tom M.D. 07/01/2019 8:44 PM Dictated: 07/01/192040 Transcribed: 07/01/192040 Code Status & VTE Plan Code Status FULL VTE Prophylaxis Plan VTE Prophylaxis will be ordered: Yes PG Care Time/CCT Total # of Minutes Spent Total Time Spent with Patient: Total time spent is greater than 50% in coordination of care (as documented) at patient's floor/unit and/or counseling patient: Coding Level of Care Code 59459 Initial Inpt Care Lvl 3 Diagnoses Hematuria R31.0 Hematuria type: gross UTI (urinary tract infection) N30.01 Urinary tract infection type: acute cystitis Hematuria presence: with hematuria Hypertension I10 Hypertension type: essential hypertension Dyslipidemia E78.5 Hypothyroid E03.9 Hypothyroidism type: unspecified COPD (chronic obstructive pulmonary disease) J44.9 COPD type: unspecified COPD (1) Hematuria Hematuria type: gross Qualified Code(s): R31.0 - Gross hematuria (2) UTI (urinary tract infection) Urinary tract infection type: acute cystitis Hematuria presence: with hematuria Qualified Code(s): N30.01 - Acute cystitis with hematuria (3) Hypertension Hypertension type: essential hypertension Qualified Code(s): I10 - Essential (primary) hypertension (4) Hypothyroid Hypothyroidism type: unspecified Qualified Code(s): E03.9 - Hypothyroidism, unspecified (5) COPD (chronic obstructive pulmonary disease) COPD type: unspecified COPD Qualified Code(s): J44.9 - Chronic obstructive pulmonary disease, unspecified
[2019-07-01] MEDS ORDERED: ACETAMINOPHEN 325 MG TAB PO PRN (23:36)
[2019-07-01] MEDS ORDERED: SODIUM CHLORIDE 0.9% 1000ML 1,000 ML IV SCH (23:36)
[2019-07-01] MEDS ORDERED: DOCUSATE SODIUM 100 MG CAP PO PRN (23:36)
[2019-07-02 00:13] LABS: Magnesium 2.1 mg/dl (1.8-2.4); Phosphorus 2.7 mg/dl (2.5-4.9)
[2019-07-02 01:47] LABS: Basophils # (auto) 0.02 K/uL (0-0.2); Basophils % (auto) 0.1 %; Hematocrit (blood only) 35.9 % (42-52); Hemoglobin 12.1 g/dL (14.0-18.0); Immature Granulocytes # (auto) 0.09 K/uL (0.00-0.02); Immature Granulocytes % (auto) 0.5 %; Lymphocytes # (auto) 1.31 K/uL (1.2-3.4); Lymphocytes % (auto) 6.9 %; Mean Corpuscular Hemoglobin 29.6 pg (25-34); Mean Corpuscular Hgb Conc 33.7 g/dL (32-36); Mean Corpuscular Volume 87.8 fL (80-100); Mean Platelet Volume 10.4 fL (7.4-10.4); Monocytes # (auto) 1.33 K/uL (0.11-0.59); Neutrophils # (auto) 16.28 K/uL (1.4-6.5); Neutrophils % (auto) 85.5 %; Platelet Count 163 K/uL (130-400); RDW Coefficient of Variation 15.7 % (11.5-14.5); RDW Standard Deviation 50.6 fL (36.4-46.3); Red Blood Count 4.09 M/uL (4.7-6.1); White Blood Count 19.03 K/uL (4.8-10.8)
[2019-07-02 01:56] LABS: Prothrombin Time 20.2 Seconds (9.0-12.0)
[2019-07-02 02:05] LABS: BUN Creatinine Ratio 19.8 (10-20); Calcium 8.3 mg/dl (8.5-10.1); Creatinine Clr Calc Pharmacy 73.8 ml/min; Est GFR (African American) 91.2; Est GFR (Non-African American) 78.7; Potassium 3.7 mmol/L (3.5-5.1)
[2019-07-02 02:16] LABS: Thyroid Stimulating Hormone 1.51 uIu/ml (0.300-4.500)
[2019-07-02] MEDS: LEVOTHYROXINE SODIUM 137 MCG TABLET PO SCH (06:12)
--- NOTE | 2019-07-02 08:25 | Urology Consultation ---
Date of Consultation July 02, 2019 Assessment & Plan (1) Hematuria: Patient likely dealing with acute prostatitis, UTI, incomplete emptying/urinary retention, and hematuria. Patient does have a significant amount of risk factors. Discussed hematuria. Discussed need for full work-up. Patient has imaging which shows significant inflammation and irritation of the prostate. Will need this further worked up as well as a bladder assessment to rule out bladder masses lesions cancers and other problems. Patient is currently undergoing antibiotic therapy with hydration. Agree with supportive care. This may need a more prolonged course secondary to the likely prostatitis as opposed to a simple UTI. Discussed different options for prostate management. May need more long-term management of the prostate depending on findings as well as response to therapy. Patient's complicated medical and surgical history was reviewed and summarized above. All imaging was reviewed interpreted by myself. We will continue to follow as an outpatient for finalization of work-up after the patient has completed his antibiotic course. Will await culture results. Agree with supportive care and hydration for now. (2) UTI (urinary tract infection): As above (3) Acute prostatitis: As above History of Present Illness Attending Physician: Mikel Marie History of Present Illness Consult for hematuria, difficulty voiding, traumatic catheter placement, and urinary issues with incomplete emptying and possible retention. Patient has mild to moderate discomfort in pelvis and groin going to back and side in waves. Is dealing with acute illness with acute UTI and likely acute prostatitis. Patient's imaging was reviewed interpreted by myself and agree with reading for cystitis with likely prostatitis. Has been deconditioned from this. Has decreased mobility significantly with acute issues. Patient has not had complete return to normal bowel function. Has had some minor urinary issues in the past. Denies bleeding. No severe nausea or vomiting. Currently no fevers. Discussed with patient multifactorial nature of urinary issues, retention, and incomplete bladder emptying. Discussed concerns and issues. Discussed decreased mobility and trouble voiding. Discussed issues related to deconditioning and weakened state. Discussed possibility that patient had more moderate to severe issues and with the acute illness and deconditioning these issues became more prevalent and obvious. Discussed bowel function and possible issues related to decrease in function and its relation to other pelvic organs and systems. Discussed different medications, will use during hospitalization and their effect on ability to empty. Allergies Allergy/AdvReac Type Severity Reaction Status Date / Time No Known Allergies Allergy Verified 07/01/19 19:55 Home Medications Home Medications Medication Instructions Recorded Confirmed Type ciclesonide [Alvesco] 1 puff INHALATION BID 07/01/19 07/01/19 History diltiazem HCl 30 mg PO TID 07/01/19 07/01/19 History levalbuterol tartrate [Xopenex HFA] 2 inh INHALATION QID 07/01/19 07/01/19 History levothyroxine 137 mcg PO QAM 07/01/19 07/01/19 History rosuvastatin 40 mg PO QPM 07/01/19 07/01/19 History sertraline 75 mg PO QAM 07/01/19 07/01/19 History sulfamethoxazole-trimethoprim 1 tab PO BID 07/01/19 07/01/19 History [Bactrim DS] warfarin 5 mg PO QPM 07/01/19 07/01/19 History Patient History Medical History COPD (chronic obstructive pulmonary disease) Dyslipidemia Hypertension Hypothyroid Neurocognitive disorder Family History Other No significant family history Social History Preferred Language: Lithuanian Communication Ability: Effective [employer]iler [employer] Required: No Beliefs That Will Affect Care: None Current Living Situation: Other Current Living Situation Comment: [facility] Feels Safe at Home: Yes Smoking Status: Unknown if ever smoked Hx Alcohol Use: No Hx Substance Use: No Review of Systems Review of Systems: All systems reviewed & are unremarkable except as noted in HPI & below Physical Exam Physical Exam: General: Alert and oriented x 3 in no acute distress. Patient is well nourished and well kept. Patient is restrained HEENT: Normocephalic Atraumatic. Inspection normal. Cranial Nerves 2-12 Grossly intact. Nares are clear. Neck is supple. Normal inspection of face. Normal inspection of neck. Neurologic: No deficits on inspection. Baseline for motor function and sensory. Psychologic: Normal affect. Respiratory: Nonlabored. No use of accessory muscles. No tachypnea or dyspnea. Cardiovascular: No tachycardia Skin: [place] and Dry. No rashes or visible lesions. Extremities: Moving without issues. No motor deficits on inspection Lymphatics: No edema Abdomen: Moderately distended. No rebound or guarding. Results & Data Vital Signs (Past 12 Hours) Vital Signs Temp Pulse Pulse Pulse Resp BP BP 07/02/19 07:41 37.6 C H 94 H 18 137/72 07/02/19 00:21 37.1 C 96 H 16 129/71 07/01/19 23:36 37.1 C 96 H 18 129/71 07/01/19 23:02 86 18 141/78 H 07/01/19 22:30 88 22 154/65 H 07/01/19 21:30 88 07/01/19 21:01 90 07/01/19 21:00 90 20 130/67 07/01/19 20:50 90 07/01/19 20:30 90 19 140/65 Pulse Ox 07/02/19 07:41 93 07/02/19 00:21 92 07/01/19 23:36 92 07/01/19 23:02 94 07/01/19 22:30 94 07/01/19 21:30 07/01/19 21:01 07/01/19 21:00 93 07/01/19 20:50 07/01/19 20:30 PG Care Time/CCT Total # of Minutes Spent Total Time Spent with Patient: Total time spent is greater than 50% in coordination of care (as documented) at patient's floor/unit and/or counseling p atient: Coding Level of Care Code 50631 Initial Inpt Care Lvl 3 Diagnoses Hematuria R31.0 Hematuria type: gross UTI (urinary tract infection) N30.01 Urinary tract infection type: acute cystitis Hematuria presence: with hematuria Acute prostatitis N41.0 (1) Hematuria Hematuria type: gross Qualified Code(s): R31.0 - Gross hematuria (2) UTI (urinary tract infection) Urinary tract infection type: acute cystitis Hematuria presence: with hematuria Qualified Code(s): N30.01 - Acute cystitis with hematuria
[2019-07-02] MEDS ORDERED: LEVALBUTEROL TARTRATE 15 GM HFA.AER.AD INH PRN (09:00)
[2019-07-02] MEDS: FLUTICASONE FUROATE 100MCG 14 PUFFS/INHALER INH SCH (09:18)
[2019-07-02] MEDS: SERTRALINE HCL 50 MG TABLET PO SCH (09:18)
[2019-07-02] MEDS: dilTIAZem HCL 30 MG TAB PO SCH ×3 (09:19→22:15)
[2019-07-02] MEDS: SODIUM CHLORIDE 0.9% 1000ML 1,000 ML IV SCH (14:30)
--- NOTE | 2019-07-02 14:32 | XRay Report ---
XR chest 2V PA/lateral CLINICAL HISTORY: 74 years-old Male presenting with cough, fatigue, eval for pathology. TECHNIQUE: PA and lateral views of the chest were obtained. COMPARISON: None. FINDINGS: Cardiomediastinal silhouette normal. Minimal basilar opacities, right greater than left. No pleural e ffusion or pneumothorax. Osseous structures normal. Upper abdomen normal. IMPRESSION: 1. Minimal bibasilar infiltrates, right greater than left. While this could represent atelectasis, d eveloping infectious infiltrates not excluded. Follow-up recommended. ACT 112: Negative or not required by law. Electronically signed by: Rafal Kim M.D. 07/02/2019 2:31 PM
[2019-07-02] MEDS: WARFARIN SOD 5 MG TAB PO SCH (16:29)
--- NOTE | 2019-07-02 20:14 | Hospitalist Progress Note ---
Date of Service July 02, 2019 Assessment & Plan (1) Sepsis: 2nd to UTI and probable prostatitis. GNR growing in urine. Blood cx's neg. Cont rocephin. BPs stable. Repeat CBC am. (2) Hematuria: Likely due to combination of UTI/Prostatitis and traumatic catheterization at outside facility in the setting of chronic coumadin use and BPH. Hematuria has improved. Bladder scan today thus far acceptable. Urology consult appreciated. Cont to monitor for recurrent bleeding. If it recurs then reverse coumadin w/ vit K. (3) UTI (urinary tract infection): 2nd GNR. Cont rocephin. Follow culture. (4) Acute prostatitis: Suspected. Would check EVELYN or PSA while here. Will likely need prolonged abx Course (4 weeks). Cont flomax. (5) BPH loc w urin obs/LUTS: Flomax. Reyes if any retention. (6) Hypothyroid: TSH wnl cont synthroid (7) Hypertension: cont CCB (8) Dyslipidemia: Continue Crestor (9) COPD (chronic obstructive pulmonary disease): in light of weight loss obtain cxr, r/o masses etc cont inhalers (10) DVT prophylaxis: coumadin uncertain why he is on such defer ongoing use to alf system INR am Admission and Anticipated Discharge Date Admission Date: July 01, 2019 Subjective patient continues to void frequently but very small amounts of concentrated urine (every 15-20 min). at the alf over the last week or so was having nocturia, urinary hesitancy, etc. has no appetite today. very tired. reports recent weight loss - uncertain amount. minimal cough. no dyspnea. Review of Systems Constitutional: + fever, + fatigue and + anorexia Cardiovascular: no chest pain Gastrointestinal: no abdominal pain, no nausea and no vomiting Physical Exam Constitutional: + ill appearing; no acute distress and no altered mental status ENMT: external ear and nose normal, oropharynx normal Respiratory: normal respiratory effort, lungs clear to auscultation Auscult ation: + diminished lung sounds (minimal-bases) Cardiovascular: Rate/Rhythm: regular rate and regular rhythm Heart Sounds: normal S1 and normal S2; no murmur Vessels: posterior tibial pulses present and dorsalis pedis pulses present; no JVD Extremities: no edema Gastrointestinal (Abdomen): Inspection/Auscultation: + abdomen distended and normal bowel sounds Percussion/Palpation: abdomen nontender, no guarding and no hepatosplenomegaly Psychiatric: A+Ox3, euthymic affect Results & Data Results & Data ([facility]) Vital Signs (Past 12 Hours) Vital Signs Temp Pulse Resp BP Pulse Ox 07/02/19 15:04 37 C 88 16 139/69 94 07/02/19 13:56 92 H 151/75 H Laboratory Results Laboratory Results - last 24 hr 07/01/19 07/01/19 07/01/19 19:45 20:12 20:12 WBC RBC Hgb Hct MCV MCH MCHC RDW Std Deviation RDW Coeff of Merry Plt Count MPV Immature Gran % (Auto) Neut % (Auto) Lymph % (Auto) Benson % (Auto) Eos % (Auto) Baso % (Auto) Immature Gran # (Auto) Neut # (Auto) Lymph # (Auto) Benson # (Auto) Eos # (Auto) Baso # (Auto) PT INR Sodium Potassium Chloride Carbon Dioxide Anion Gap BUN Creatinine Est Cr Clr Drug Dosing Est GFR ( Amer) Est GFR (Non-Af Amer) BUN/Creatinine Ratio Glucose Lactate 1.5 Calcium Phosphorus Magnesium Procalcitonin 1.32 H TSH Urine Color Dark Yellow Urine Appearance Turbid A Urine pH 5.0 Ur Specific [place] 1.027 Urine Protein 3+ H Urine Glucose (UA) Negative Urine Ketones Trace H Urine Blood 3+ H Urine Nitrite Positive A Urine Bilirubin Negative Urine Urobilinogen Negative Ur Leukocyte Esterase 2+ H Urine WBC (Auto) >30 H Urine RBC (Auto) >30 H U Hyaline Cast (Auto) 5-10 H U Epithel Cells (Auto) 10-20 H Urine Bacteria (Auto) 1+ H Urine Yeast Present A Nasal Screen MRSA (PCR) Hepatitis C Ab Screen 07/01/19 07/01/19 07/01/19 20:12 20:12 20:20 WBC RBC Hgb Hct MCV MCH MCHC RDW Std Deviation RDW Coeff of Merry Plt Count MPV Immature Gran % (Auto) Neut % (Auto) Lymph % (Auto) Benson % (Auto) Eos % (Auto) Baso % (Auto) Immature Gran # (Auto) Neut # (Auto) Lymph # (Auto) Benson # (Auto) Eos # (Auto) Baso # (Auto) PT 21.0 H INR 2.1 H Sodium Potassium Chloride Carbon Dioxide Anion Gap BUN Creatinine Est Cr Clr Drug Dosing Est GFR ( Amer) Est GFR (Non-Af Amer) BUN/Creatinine Ratio Glucose Lactate Calcium Phosphorus 2.7 Magnesium 2.1 Procalcitonin TSH Urine Color Urine Appearance Urine pH Ur Specific [place] Urine Protein Urine Glucose (UA) Urine Ketones Urine Blood Urine Nitrite Urine Bilirubin Urine Urobilinogen Ur Leukocyte Esterase Urine WBC (Auto) Urine RBC (Auto) U Hyaline Cast (Auto) U Epithel Cells (Auto) Urine Bacteria (Auto) Urine Yeast Nasal Screen MRSA (PCR) Hepatitis C Ab Screen Neg 07/02/19 07/02/19 07/02/19 01:28 01:28 01:28 WBC 19.03 H RBC 4.09 L Hgb 12.1 L Hct 35.9 L MCV 87.8 MCH 29.6 MCHC 33.7 RDW Std Deviation 50.6 H RDW Coeff of Merry 15.7 H Plt Count 163 MPV 10.4 Immature Gran % (Auto) 0.5 Neut % (Auto) 85.5 Lymph % (Auto) 6.9 Benson % (Auto) 7.0 Eos % (Auto) 0.0 Baso % (Auto) 0.1 Immature Gran # (Auto) 0.09 H Neut # (Auto) 16.28 H Lymph # (Auto) 1.31 Benson # (Auto) 1.33 H Eos # (Auto) 0.00 Baso # (Auto) 0.02 PT 20.2 H INR 2.0 H Sodium 140 Potassium 3.7 Chloride 105 Carbon Dioxide 27 Anion Gap 8.0 BUN 19 H Creatinine 0.96 Est Cr Clr Drug Dosing 73.8 Est GFR ( Amer) 91.2 Est GFR (Non-Af Amer) 78.7 BUN/Creatinine Ratio 19.8 Glucose 99 Lactate Calcium 8.3 L Phosphorus Magnesium Procalcitonin TSH 1.510 Urine Color Urine Appearance Urine pH Ur Specific [place] Urine Protein Urine Glucose (UA) Urine Ketones Urine Blood Urine Nitrite Urine Bilirubin Urine Urobilinogen Ur Leukocyte Esterase Urine WBC (Auto) Urine RBC (Auto) U Hyaline Cast (Auto) U Epithel Cells (Auto) Urine Bacteria (Auto) Urine Yeast Nasal Screen MRSA (PCR) Hepatitis C Ab Screen 07/02/19 01:45 WBC RBC Hgb Hct MCV MCH MCHC RDW Std Deviation RDW Coeff of Merry Plt Count MPV Immature Gran % (Auto) Neut % (Auto) Lymph % (Auto) Benson % (Auto) Eos % (Auto) Baso % (Auto) Immature Gran # (Auto) Neut # (Auto) Lymph # (Auto) Benson # (Auto) Eos # (Auto) Baso # (Auto) PT INR Sodium Potassium Chloride Carbon Dioxide Anion Gap BUN Creatinine Est Cr Clr Drug Dosing Est GFR ( Amer) Est GFR (Non-Af Amer) BUN/Creatinine Ratio Glucose Lactate Calcium Phosphorus Magnesium Procalcitonin TSH Urine Color Urine Appearance Urine pH Ur Specific [place] Urine Protein Urine Glucose (UA) Urine Ketones Urine Blood Urine Nitrite Urine Bilirubin Urine Urobilinogen Ur Leukocyte Esterase Urine WBC (Auto) Urine RBC (Auto) U Hyaline Cast (Auto) U Epithel Cells (Auto) Urine Bacteria (Auto) Urine Yeast Nasal Screen MRSA (PCR) Negative Hepatitis C Ab Screen Diagnostic Findings urine cx- gram neg madelyn blood cx's thus far negative PG Care Time/CCT Total # of Minutes Spent Total Time Spent with Patient: Total time spent is greater than 50% in coordination of care (as documented) at patient's floor/unit and/or counseling patient: Coding Level of Care Code 49533 Subseq Hosp Care Lvl 2 Diagnoses Sepsis A41.9 Sepsis type: sepsis due to unspecified organism Sepsis acute organ dysfunction status: unspecified Hematuria R31.0 Hematuria type: gross UTI (urinary tract infection) N30.01 Urinary tract infection type: acute cystitis Hematuria presence: with hematuria Acute prostatitis N41.0 BPH loc w urin obs/LUTS N40.1 Hypothyroid E03.9 Hypothyroidism type: unspecified Hypertension I10 Hypertension type: essential hypertension Dyslipidemia E78.5 COPD (chronic obstructive pulmonary disease) J44.9 COPD type: unspecified COPD DVT prophylaxis Z29.9 (1) Hematuria Hematuria type: gross Qualified Code(s): R31.0 - Gross hematuria (2) UTI (urinary tract infection) Urinary tract infection type: acute cystitis Hematuria presence: with hematuria Qualified Code(s): N30.01 - Acute cystitis with hematuria (3) Hypertension Hypertension type: essential hypertension Qualified Code(s): I10 - Essential (primary) hypertension (4) Hypothyroid Hypothyroidism type: unspecified Qualified Code(s): E03.9 - Hypothyroidism, unspecified (5) COPD (chronic obstructive pulmonary disease) COPD type: unspecified COPD Qualified Code(s): J44.9 - Chronic obstructive pulmonary disease, unspecified (6) Sepsis Sepsis type: sepsis due to unspecified organism Sepsis acute organ dys function status: unspecified Qualified Code(s): A41.9 - Sepsis, unspecified organism
[2019-07-02] MEDS ORDERED: LORazepam 2 MG/4 ML VIAL IV PRN (20:40)
[2019-07-02] MEDS ORDERED: LORazepam 2 MG/ML VIAL (IM USE) IM PRN (20:40)
[2019-07-02 21:20] LABS: BUN Creatinine Ratio 15.5 (10-20); Calcium 8.5 mg/dl (8.5-10.1); Creatinine Clr Calc Pharmacy 58.6 ml/min; Est GFR (African American) 68.9; Est GFR (Non-African American) 59.5; Magnesium 2.2 mg/dl (1.8-2.4); Potassium 3.8 mmol/L (3.5-5.1)
[2019-07-02] MEDS ORDERED: SODIUM CHLORIDE 0.9% 1000ML 1,000 ML IV ONE (21:25)
[2019-07-02] MEDS ORDERED: ACETAMINOPHEN 1,000 MG/100 ML VIAL IV PRN (21:35)
[2019-07-02] MEDS: ROSUVASTATIN CALCIUM 20 MG TAB PO SCH (22:17)
[2019-07-02] MEDS: cefTRIAXone SODIUM 1,000 MG in DEXTROSE 5% 50 ML IV SCH (22:18)
[2019-07-02] MEDS: TAMSULOSIN HCL 0.4 MG CAP PO SCH (22:18)
[2019-07-02] MEDS ORDERED: SODIUM CHLORIDE 0.9% 1000ML 500 ML IV ONE (22:20)
[2019-07-02 22:34] LABS: Allen Test Pos (Pos); Base Excess ABG -0.1 mEq/L (-9-1.8); HCO3 ABG 25 mmol/L (19-24); Oxygen Saturation ABG 96.9 % (90-95); PCO2 ABG 42 mmHg (35-46); PO2 ABG 89 mmHg (80-95); pH ABG 7.39 (7.35-7.45)
[2019-07-03] MEDS: SODIUM CHLORIDE 0.9% 1000ML 1,000 ML IV SCH ×2 (03:06→13:50)
[2019-07-03] MEDS: LEVOTHYROXINE SODIUM 137 MCG TABLET PO SCH (05:36)
[2019-07-03 07:12] LABS: Hematocrit (blood only) 30.9 % (42-52); Hemoglobin 10.5 g/dL (14.0-18.0); Mean Corpuscular Hemoglobin 29.7 pg (25-34); Mean Corpuscular Volume 87.3 fL (80-100); Platelet Count 140 K/uL (130-400); RDW Coefficient of Variation 16.2 % (11.5-14.5); RDW Standard Deviation 52.6 fL (36.4-46.3); Red Blood Count 3.54 M/uL (4.7-6.1); White Blood Count 18.53 K/uL (4.8-10.8)
[2019-07-03 07:27] LABS: Prothrombin Time 20.2 Seconds (9.0-12.0)
[2019-07-03 07:51] LABS: BUN Creatinine Ratio 22.9 (10-20); Calcium 7.8 mg/dl (8.5-10.1); Creatinine Clr Calc Pharmacy 94.5 ml/min; Est GFR (African American) 106.2; Est GFR (Non-African American) 91.6; Potassium 3.7 mmol/L (3.5-5.1)
[2019-07-03] MEDS: FLUTICASONE FUROATE 100MCG 14 PUFFS/INHALER INH SCH (08:45)
[2019-07-03] MEDS: dilTIAZem HCL 30 MG TAB PO SCH ×3 (08:45→21:40)
[2019-07-03] MEDS: SERTRALINE HCL 50 MG TABLET PO SCH (08:45)
--- NOTE | 2019-07-03 10:00 | Hospitalist Progress Note ---
Date of Service July 03, 2019 Assessment & Plan (1) Sepsis: * 2nd to UTI and probable prostatitis. * E. Coli growth in urine, pansensitive * Blood cx NGTD * Continue IV Rocephin --> can switch to oral starting tomorrow * BPs stable , currently 136/77 * Repeat CBC am (2) Hematuria: * Likely due to combination of UTI/Prostatitis and traumatic catheterization at outside facility in the setting of chronic coumadin use and BPH. * Hematuria has improved. * Bladder scan today thus far acceptable. * Urology consult appreciated. * Cont to monitor for recurrent bleeding --> If it recurs then reverse coumadin w/ vit K. (3) Seizure: * lasting approx 2 minutes evening/overnight 07/01. Per patient, has had several in past with most recent approximately 5 years ago. Not on any meds currently although patient believes he may have been on something in the past * Neurology consult -- appreciate recommendations * Seizure precautions, ativan prn * CT head pending * MRI Brain pending * EEG awake/drowsy pending * Continue to monitor (4) UTI (urinary tract infection): * 2nd Ecoli as above, pansensitive * Continue IV Rocephin -- can switch to oral (5) Acute prostatitis: * Suspected. * EVELYN with boggy prostate, not exquisitely tender to palpation * Will need to continue Flomax, follow up with Urology for further evaluation (6) BPH loc w urin obs/LUTS: * Flomax. * Reyes if any retention. (7) Hypothyroid: * Chronic. Stable. * TSH wnl * Contineu home levothyroxine 137mcg PO daily (8) Hypertension: * Chronic. Stable * BP currently 136/77 * Continue home diltiazem 30mg TID * Continue to monitor (9) Dyslipidemia: * Chronic. Stable * Continue Crestor (10) COPD (chronic obstructive pulmonary disease): * in light of weight loss obtain cxr, r/o masses etc * cont inhalers (11) DVT prophylaxis: * Continue home coumadin 5mg daily, uncertain as to why he is on this medication * INR 2.0 * Repeat INR in AM (12) Hypoxia: * Pox 84% evening 07/01 * CXR with bibasilar atelectasis vs acute process * Repeat CXR pending, currently 97% on RA --> wean off O2 as able * Continue to monitor Admission and Anticipated Discharge Date Admission Date: July 01, 2019 Supervising Physician Co-Signing Physician Notes Attending Attestation - Chart reviewed in detail, care plan d/w NAY Coughlin. I agree w/ the rondon components of her documentation. Remains on rocephin for UTI/prostatitis. EVELYN today and PSA c/w prostatitis. Seizure overnight; to start keppra for prophylaxis. CT head/MRI brain - r/o structural brain lesions, etc. EEG also ordered. ?thoracic compression fracture - consider dedicated t-spine CT. if considerable pain obtain TLSO brace, miacalcin nasal spray, etc. Mikel Marie MD Subjective Patient evaluated at bedside. Still has urinary frequency but unable to comment on if blood is more or less than yesterday. Reported seizure last evening lasting approximately 2 minutes with loss of bladder function and bite his tongue. Patient states he has a chronic cough, unsure if better or worse than baseline. States some pain of bottom of ribcage. Denies any fevers, chills, shortness of breath, chest pain, abdominal pain, n/v/c/d at this time. Denies any numbness/tingling or loss of sensation, loss of bowel/bladder function. Review of Systems Review of Systems: All systems reviewed & are unremarkable except as noted in HPI & below Physical Exam Constitutional: WD/WN, vitals as above no acute distress Eyes: + anicteric sclerae and PERRL Neck: trachea midline, no thyromegaly Respiratory: normal respiratory effort; no respiratory distress and no labored breathing Auscultation: + diminished lung sounds (bases bilateally); no crackles and no wheezes Cardiovascular: RRR, no murmur, no edema Gastrointestinal (Abdomen): normal bowel sounds, soft, nontender, no hepatosplenomegaly Musculoskeletal: no cyanosis or clubbing, extremities motor strength 5/5 Skin: no rashes, warm and dry Neurologic: PERRL, EOMI, accommodation nl, no face palsy, no dysarthria Psychiatric: Orientation: alert and oriented x 3 Genitourinary: no testicular masses, no penis abnormality EVELYN: boggy prostate Lymphatic: no cervical or axillary lymphadenopathy Results & Data Results & Data ([facility]) Vital Signs (Past 12 Hours) Vital Signs Temp Pulse Resp BP Pulse Ox 05/19/20 07:47 36.8 C 85 18 136/77 97 07/02/19 23:40 37.0 C 88 18 143/82 H 96 07/02/19 22:24 37.3 C 96 H 16 130/75 96 07/02/19 22:08 92 Laboratory Results 07/03/19 07/03/19 07/03/19 Range/Units 06:51 06:51 06:51 WBC 18.53 H (4.8-10.8) K/uL RBC 3.54 L (4.7-6.1) M/uL Hgb 10.5 L (14.0-18.0) g/dL Hct 30.9 L (42-52) % MCV 87.3 (80-100) fL MCH 29.7 (25-34) pg MCHC 34.0 (32-36) g/dL RDW Std Deviation 52.6 H (36.4-46.3) fL RDW Coeff of Merry 16.2 H (11.5-14.5) % Plt Count 140 (130-400) K/uL MPV 10.0 (7.4-10.4) fL PT 20.2 H (9.0-12.0) Seconds INR 2.0 H (0.9-1.1) ABG pH (7.35-7.45) ABG pCO2 (35-46) mmHg ABG pO2 (80-95) mmHg ABG HCO3 (19-24) mmol/L ABG O2 Saturation (90-95) % ABG Base Excess (-9-1.8) mEq/L Akash Test (Pos) Barometric Pressure mm/Hg Oxygen Given Sodium 137 (136-145) mmol/L Potassium 3.7 (3.5-5.1) mmol/L Chloride 106 (98-107) mmol/L Carbon Dioxide 24 (21-32) mmol/L Anion Gap 7.0 (3-11) BUN 17 (7-18) mg/dl Creatinine 0.75 D (0.6-1.4) mg/dl Est Cr Clr Drug Dosing 94.5 ml/min Est GFR ( Amer) 106.2 Est GFR (Non-Af Amer) 91.6 BUN/Creatinine Ratio 22.9 H (10-20) Glucose 97 (70-99) mg/dl POC Glucose (70-99) mg/dl Lactate (0.4-2.0) mmol/L Calcium 7.8 L (8.5-10.1) mg/dl Magnesium (1.8-2.4) mg/dl 07/02/19 07/02/19 07/02/19 Range/Units 22:23 22:23 20:55 WBC (4.8-10.8) K/uL RBC (4.7-6.1) M/uL Hgb (14.0-18.0) g/dL Hct (42-52) % MCV (80-100) fL MCH (25-34) pg MCHC (32-36) g/dL RDW Std Deviation (36.4-46.3) fL RDW Coeff of Merry (11.5-14.5) % Plt Count (130-400) K/uL MPV (7.4-10.4) fL PT (9.0-12.0) Seconds INR (0.9-1.1) ABG pH 7.39 (7.35-7.45) ABG pCO2 42 (35-46) mmHg ABG pO2 89 (80-95) mmHg ABG HCO3 25 H (19-24) mmol/L ABG O2 Saturation 96.9 H (90-95) % ABG Base Excess -0.1 (-9-1.8) mEq/L Akash Test Pos (Pos) Barometric Pressure 733.4 mm/Hg Oxygen Given 3 LITERS Sodium 135 L (136-145) mmol/L Potassium 3.8 (3.5-5.1) mmol/L Chloride 102 (98-107) mmol/L Carbon Dioxide 19 L (21-32) mmol/L Anion Gap 14.0 H (3-11) BUN 19 H (7-18) mg/dl Creatinine 1.21 (0.6-1.4) mg/dl Est Cr Clr Drug Dosing 58.6 ml/min Est GFR ( Amer) 68.9 Est GFR (Non-Af Amer) 59.5 BUN/Creatinine Ratio 15.5 (10-20) Glucose 129 H (70-99) mg/dl POC Glucose (70-99) mg/dl Lactate 1.3 (0.4-2.0) mmol/L Calcium 8.5 (8.5-10.1) mg/dl Magnesium 2.2 (1.8-2.4) mg/dl 07/02/19 Range/Units 20:21 WBC (4.8-10.8) K/uL RBC (4.7-6.1) M/uL Hgb (14.0-18.0) g/dL Hct (42-52) % MCV (80-100) fL MCH (25-34) pg MCHC (32-36) g/dL RDW Std Deviation (36.4-46.3) fL RDW Coeff of Merry (11.5-14.5) % Plt Count (130-400) K/uL MPV (7.4-10.4) fL PT (9.0-12.0) Seconds INR (0.9-1.1) ABG pH (7.35-7.45) ABG pCO2 (35-46) mmHg ABG pO2 (80-95) mmHg ABG HCO3 (19-24) mmol/L ABG O2 Saturation (90-95) % ABG Base Excess (-9-1.8) mEq/L Akash Test (Pos) Barometric Pressure mm/Hg Oxygen Given Sodium (136-145) mmol/L Potassium (3.5-5.1) mmol/L Chloride (98-107) mmol/L Carbon Dioxide (21-32) mmol/L Anion Gap (3-11) BUN (7-18) mg/dl Creatinine (0.6-1.4) mg/dl Est Cr Clr Drug Dosing ml/min Est GFR ( Amer) Est GFR (Non-Af Amer) BUN/Creatinine Ratio (10-20) Glucose (70-99) mg/dl POC Glucose 140 H (70-99) mg/dl Lactate (0.4-2.0) mmol/L Calcium (8.5-10.1) mg/dl Magnesium (1.8-2.4) mg/dl PG Care Time/CCT Total # of Minutes Spent Total Time Spent with Patient: Total time spent is greater than 50% in coordination of care (as documented) at patient's floor/unit and/or counseling patient: Coding Level of Care Code 46936 Subseq Hosp Care Lvl 3 Diagnoses Sepsis A41.9 Sepsis acute organ dysfunction status: unspecified Sepsis type: sepsis due to unspecified organism Hematuria R31.0 Hematuria type: gross Seizure R56.9 UTI (urinary tract infection) N30.01 Hematuria presence: with hematuria Urinary tract infection type: acute cystitis Acute prostatitis N41.0 BPH loc w urin obs/LUTS N40.1 Hypothyroid E03.9 Hypothyroidism type: unspecified Hypertension I10 Hypertension type: essential hypertension Dyslipidemia E78.5 COPD (chronic obstructive pulmonary disease) J44.9 COPD type: unspecified COPD DVT prophylaxis Z29.9 Hypoxia R09.02 (1) UTI (urinary tract infection) Hematuria presence: with hematuria Urinary tract infection type: acute cystitis Qualified Code(s): N30.01 - Acute cystitis with hematuria (2) Hematuria Hematuria type: gross Qualified Code(s): R31.0 - Gross hematuria (3) Hypothyroid Hypothyroidism type: unspecified Qualified Code(s): E03.9 - Hypothyroidism, unspecified (4) Sepsis Sepsis acute organ dysfunction status: unspecified Sepsis type: sepsis due to unspecified organism Qualified Code(s): A41.9 - Sepsis, unspecified organism (5) COPD (chronic obstructive pulmonary disease) COPD type: unspecified COPD Qualified Code(s): J44.9 - Chronic obstructive pulmonary disease, unspecified (6) Hypertension Hypertension type: essential hypertension Qualified Code(s): I10 - Essential (primary) hypertension
[2019-07-03 11:04] LABS: Albumin Level 2.9 gm/dl (3.4-5.0); Bilirubin Direct 0.1 mg/dl (0-0.2); Bilirubin,Total 0.5 mg/dl (0.2-1); Total Protein 6.7 gm/dl (6.4-8.2)
[2019-07-03] MEDS ORDERED: levETIRAcetam 1,000 MG in 0.9 % SODIUM CHLORIDE 100 ML IV ONE (11:30)
--- NOTE | 2019-07-03 12:41 | CT Scan Report ---
HEAD CT NONCONTRAST CT DOSE: 537.48 mGy.cm HISTORY: seizures TECHNIQUE: Multiaxial CT images of the head were performed without the use of intravenous contrast. A utomated exposure control was utilized for this study. A dose lowering technique was utilized adheri ng to the principles of ALARA. Comparison: Head CT 07/01/2019. Findings: The paranasal sinuses and mastoid air cells are clear. The calvarium and skull base are int act. There is no mass, hematoma, midline shift, acute infarct. White matter hypodensity is nonspecifi c but suggestive of microvascular ischemic change. The ventricles and sulci demonstrate mild age-rela lalita involutional changes. Impression: No significant change compared to the prior study. No acute intracranial abnormality. ACT 112: Negative or not required by law. Electronically signed by: Adair Bailey M.D. 07/03/2019 12:40 PM
--- NOTE | 2019-07-03 15:11 | XRay Report ---
XR orbits for MRI CLINICAL HISTORY: 74 years-old Male presenting with for MRI clearance. TECHNIQUE: 3 views of the orbits were obtained. COMPARISON: Head CT from 07/03/2019. FINDINGS: No radiopaque intraorbital foreign body. Bony orbits grossly intact. Paranasal sinuses grossly clear. Visualized portion of the calvarium intact. IMPRESSION: No intraorbital metallic foreign body to preclude MRI exam. ACT 112: Negative or not required by law. Electronically signed by: Rafal Kim M.D. 07/03/2019 3:09 PM
--- NOTE | 2019-07-03 15:13 | XRay Report ---
XR chest 2V PA/lateral CLINICAL HISTORY: 74 years-old Male presenting with hypoxia 07/01, atelectasis. TECHNIQUE: PA and lateral views of the chest were obtained. COMPARISON: 07/02/2019. FINDINGS: Atherosclerosis of the aortic arch. Cardiac silhouette enlarged. The prior opacity at the right lung base is not well demonstrated or is not present on the current exam. Minimal if any opacity is presen t at the lung bases. No pleural effusion or pneumothorax. Moderate compression deformity of one of th e lower thoracic levels as well as one of the upper lumbar levels. This is new in the thoracic spine. Upper abdomen normal. IMPRESSION: 1. Moderate compression fracture in the lower thoracic spine new from yesterday. This is consistent with acute fracture. 2. Chronic moderate compression fracture in the upper lumbar spine. 3. Decreased conspicuity of the prior right basilar opacity. This may represent resolved infiltrate or atelectasis. 4. Megaly without evidence of congestive change. The report will be called/faxed according to standard departmental protocol. ACT 112: Negative or not required by law. Electronically signed by: Rafal Kim M.D. 07/03/2019 3:11 PM
--- NOTE | 2019-07-03 15:44 | Electrocardiogram Report ---
Test Reason : Blood Pressure : / mmHG Vent. Rate : 121 BPM Atrial Rate : 121 BPM P-R Int : 172 ms QRS Dur : 096 ms QT Int : 288 ms P-R-T Axes : 076 -20 133 degrees QTc Int : 408 ms Sinus tachycardia Possible Left atrial enlargement Incomplete right bundle branch block Abnormal ECG No previous ECGs available Confirmed by Tobi Arreaga ([id number]) on 07/03/2019 3:44:42 PM Referred By: [facility] Confirmed By:Claus Arreaga
--- NOTE | 2019-07-03 15:48 | Electrocardiogram Report ---
Test Reason : Blood Pressure : / mmHG Vent. Rate : 090 BPM Atrial Rate : 090 BPM P-R Int : 146 ms QRS Dur : 100 ms QT Int : 392 ms P-R-T Axes : 072 -04 052 degrees QTc Int : 479 ms Normal sinus rhythm Normal ECG When compared with ECG of 02-JUL-2019 20:28, (unconfirmed) ST no longer depressed in Anterolateral leads T wave inversion no longer evident in Inferior leads T wave inversion no longer evident in Anterolateral leads Confirmed by Tobi Arreaga ([id number]) on 07/03/2019 3:47:35 PM Referred By: [facility] Confirmed By:Claus Arreaga
[2019-07-03] MEDS: WARFARIN SOD 5 MG TAB PO SCH (16:45)
--- NOTE | 2019-07-03 16:49 | Magnetic Resonance Report ---
MR brain seizure wo con HISTORY: 74 years-old Male seizures acute seizure like activity COMPARISON: Head CT 07/03/2019, head CT 07/01/2019 TECHNIQUE: Multiplanar multisequence MRI of the brain was obtained without the use of IV contrast uti lizing seizure protocol FINDINGS: Plug Machine Operator localizer images demonstrate no gross extracranial abnormality. There is no restricted diffusio n to suggest acute or subacute infarct. Motion degraded exam. The midline structures including the co rpus callosum, brainstem, optic chiasm, pituitary and pineal glands appear unremarkable on the sagitt al T1 series. No cerebellar tonsillar herniation. Degenerative changes are noted about the imaged cer vical spine. There is no acute intracranial hemorrhage, midline shift, abnormal extra-axial collection, hydrocepha keisha or intracranial mass. Age-related involutional changes. The visualized major vascular flow voids appear patent. Small right mastoid effusion. Mild mucosal thickening of the paranasal sinuses. The sk ull, soft tissues and orbits are unremarkable. Moderate to extensive T2/FLAIR hyperintensities throug hout the white matter of the cerebral hemispheres are nonspecific, however are suggestive of chronic microvascular ischemic disease. Cortically-based increased FLAIR signal of the right temporal lobe on image 12 series 6 measures 8 mm. This finding is likely artifactual. The bilateral mesial temporal l obes are unremarkable and appear to be symmetric. No definite acute seizure focus. IMPRESSION: 1. Motion degraded exam. 2. Within the limitations of the study, no acute intracranial abnormality identified. Specifically, t here is no evidence of acute or subacute infarct. 3. Age-related involutional changes with moderate to extensive T2/FLAIR hyperintensities throughout t he white matter suggestive of chronic microvascular ischemic disease. ACT 112: Negative or not required by law. The above report was generated using voice recognition software. It may contain grammatical, syntax o r spelling errors. Dictated: 07/03/2019 4:17 PM Transcribed: 07/03/2019 4:27 PM Stephy [id number] Chika Electronically signed by: Mick Tom M.D. 07/03/2019 4:47 PM
[2019-07-03] MEDS: ROSUVASTATIN CALCIUM 20 MG TAB PO SCH (21:40)
[2019-07-03] MEDS: TAMSULOSIN HCL 0.4 MG CAP PO SCH (21:40)
[2019-07-03] MEDS: cefTRIAXone SODIUM 1,000 MG in DEXTROSE 5% 50 ML IV SCH (21:41)
[2019-07-04] MEDS: SODIUM CHLORIDE 0.9% 1000ML 1,000 ML IV SCH (03:39)
[2019-07-04] MEDS: LEVOTHYROXINE SODIUM 137 MCG TABLET PO SCH (05:41)
[2019-07-04 06:15] LABS: Basophils # (auto) 0.02 K/uL (0-0.2); Basophils % (auto) 0.2 %; Eosinophils # (auto) 0.18 K/uL (0-0.5); Eosinophils % (auto) 1.6 %; Hematocrit (blood only) 29.9 % (42-52); Hemoglobin 10.1 g/dL (14.0-18.0); Immature Granulocytes # (auto) 0.05 K/uL (0.00-0.02); Immature Granulocytes % (auto) 0.4 %; Lymphocytes # (auto) 0.77 K/uL (1.2-3.4); Lymphocytes % (auto) 6.8 %; Mean Corpuscular Hemoglobin 29.5 pg (25-34); Mean Corpuscular Hgb Conc 33.8 g/dL (32-36); Mean Corpuscular Volume 87.4 fL (80-100); Mean Platelet Volume 10.6 fL (7.4-10.4); Monocytes # (auto) 0.56 K/uL (0.11-0.59); Neutrophils # (auto) 9.73 K/uL (1.4-6.5); Platelet Count 146 K/uL (130-400); RDW Coefficient of Variation 15.8 % (11.5-14.5); RDW Standard Deviation 51.1 fL (36.4-46.3); Red Blood Count 3.42 M/uL (4.7-6.1); White Blood Count 11.31 K/uL (4.8-10.8)
[2019-07-04 06:26] LABS: INR 2.1 (0.9-1.1); Prothrombin Time 21.1 Seconds (9.0-12.0)
[2019-07-04 06:48] LABS: Albumin Level 2.7 gm/dl (3.4-5.0); BUN Creatinine Ratio 30.8 (10-20); Calcium 7.8 mg/dl (8.5-10.1); Creatinine Clr Calc Pharmacy 112.5 ml/min; Est GFR (African American) 114.1; Est GFR (Non-African American) 98.5; Potassium 3.5 mmol/L (3.5-5.1)
[2019-07-04 06:51] LABS: Albumin Globulin Ratio 0.7 (0.9-2); Bilirubin,Total 0.6 mg/dl (0.2-1); Globulin 3.8 gm/dl (2.5-4.0); Total Protein 6.5 gm/dl (6.4-8.2)
--- NOTE | 2019-07-04 08:04 | Electroencephalogram ---
EEG Procedure Note Date of Service July 04, 2019 Start / End Times Start Time: 6:17 AM End Time: 6:37 AM Referring Physician Jeannine Coughlin PA-C History Seizure Home Medication List Home Medications Medication Instructions Recorded Confirmed Type ciclesonide [Alvesco] 1 puff INHALATION BID 07/01/19 07/01/19 History diltiazem HCl 30 mg PO TID 07/01/19 07/01/19 History levalbuterol tartrate [Xopenex HFA] 2 inh INHALATION QID 07/01/19 07/01/19 History levothyroxine 137 mcg PO QAM 07/01/19 07/01/19 History rosuvastatin 40 mg PO QPM 07/01/19 07/01/19 History sertraline 75 mg PO QAM 07/01/19 07/01/19 History sulfamethoxazole-trimethoprim 1 tab PO BID 07/01/19 07/01/19 History [Bactrim DS] warfarin 5 mg PO QPM 07/01/19 07/01/19 History Inpatient Medication List Diltiazem HCl (Cardizem) 30 mg PO TID [facility] Stop: 08/01/19 08:59 Last Admin: 07/03/19 21:40 Dose: 30 mg Documented by: [id number] Admin: 07/03/19 12:55 Dose: 30 mg Documented by: [id number] Admin: 07/03/19 08:45 Dose: 30 mg Documented by: [id number] Admin: 07/02/19 22:15 Dose: Not Given Documented by: [id number] Admin: 07/02/19 13:50 Dose: 30 mg Documented by: [id number] Admin: 07/02/19 09:19 Dose: 30 mg Documented by: [id number] Fluticasone Furoate (Arnuity Ellipta 100mcg) 1 puffs INH DAILY KAREN Stop: 08/01/19 08:59 Last Admin: 07/03/19 08:45 Dose: 1 puffs Documented by: [id number] Admin: 07/02/19 09:18 Dose: 1 puffs Documented by: [id number] Ceftriaxone Sodium 1,000 mg/ (Dextrose) 50 mls @ 100 mls/hr IV Q24H [facility]; Protocol Stop: 07/10/19 22:29 Last Infusion: 07/03/19 22:14 Dose: 0 mls/hr Documented by: [id number] Admin: 07/03/19 21:41 Dose: 100 mls/hr Documented by: [id number] Infusion: 07/02/19 23:38 Dose: 0 mls/hr Documented by: [id number] Admin: 07/02/19 22:18 Dose: 100 mls/hr Documented by: [id number] Sodium Chloride (Nss 1000ml) 1,000 mls @ 80 mls/hr IV .[id number] [facility] Stop: 08/01/19 14:14 Last Admin: 07/04/19 03:39 Dose: 80 mls/hr Documented by: [id number] Infusion: 07/04/19 02:20 Dose: 80 mls/hr Documented by: [id number] Admin: 07/03/19 13:50 Dose: 80 mls/hr Documented by: [id number] Infusion: 07/03/19 13:48 Dose: 0 mls/hr Documented by: [id number] Admin: 07/03/19 03:06 Dose: 80 mls/hr Documented by: [id number] Infusion: 07/03/19 03:00 Dose: 80 mls/hr Documented by: [id number] Admin: 07/02/19 14:30 Dose: 80 mls/hr Documented by: [id number] Levalbuterol HCl (Xopenex Hfa) 2 puffs INH QID PRN; Protocol PRN Reason: Shortness Of Breath Or Wheezing Stop: 08/01/19 08:59 Last Admin: 07/04/19 07:09 Dose: 2 puffs Documented by: [id number] Levothyroxine Sodium (Levothyroxine Sodium) 137 mcg PO DAILYBB [facility] Stop: 08/01/19 06:29 Last Admin: 07/04/19 05:41 Dose: 137 mcg Documented by: [id number] Admin: 07/03/19 05:36 Dose: 137 mcg Documented by: [id number] Admin: 07/02/19 06:12 Dose: 137 mcg Documented by: [id number] Rosuvastatin Calcium (Crestor) 40 mg PO QPM KAREN Stop: 08/01/19 20:59 Last Admin: 07/03/19 21:40 Dose: 40 mg Documented by: [id number] Admin: 07/02/19 22:17 Dose: Not Given Documented by: [id number] Sertraline HCl (Zoloft) 75 mg PO QAM KAREN Stop: 08/01/19 08:59 Last Admin: 07/03/19 08:45 Dose: 75 mg Documented by: [id number] Admin: 07/02/19 09:18 Dose: 75 mg Documented by: [id number] Tamsulosin HCl (Flomax) 0.4 mg PO HS [facility] Stop: 08/01/19 20:59 Last Admin: 07/03/19 21:40 Dose: 0.4 mg Documented by: [id number] Admin: 07/02/19 22:18 Dose: Not Given Documented by: [id number] Warfarin Sodium (Coumadin) 5 mg PO DAILY@1600 [facility] Stop: 08/01/19 15:59 Last Admin: 07/03/19 16:45 Dose: 5 mg Documented by: [id number] Admin: 07/02/19 16:29 Dose: 5 mg Documented by: [id number] Discontinued Medications Ceftriaxone Sodium (Rocephin) 2,000 mg in 70 mls @ 140 mls/hr IV NOW [facility] Stop: 07/01/19 21:37 Last Infusion: 07/01/19 22:27 Dose: 0 mls/hr Documented by: [id number] Admin: 07/01/19 21:51 Dose: 140 mls/hr Documented by: [id number] Sodium Chloride (Nss 1000ml) 1,000 mls @ 999 mls/hr IV .Q1H1M ONE Stop: 07/01/19 22:10 Last Infusion: 07/02/19 00:37 Dose: 0 mls/hr Documented by: [id number] Admin: 07/01/19 21:52 Dose: 999 mls/hr Documented by: [id number] Sodium Chloride (Nss 1000ml) 1,000 mls @ 80 mls/hr IV .[id number] [facility] Stop: 07/02/19 12:05 Last Infusion: 07/02/19 13:55 Dose: 0 mls/hr Documented by: [id number] Admin: 07/02/19 00:20 Dose: 80 mls/hr Documented by: [id number] Sodium Chloride (Nss 1000ml) 1,000 mls @ 999 mls/hr IV .Q1H1M ONE Stop: 07/02/19 22:25 Last Admin: 07/02/19 23:38 Dose: Not Given Documented by: [id number] Sodium Chloride (Nss 1000ml) 500 mls @ 999 mls/hr IV .Q31M ONE Stop: 07/02/19 22:50 Last Infusion: 07/03/19 00:59 Dose: 0 mls/hr Documented by: [id number] Admin: 07/02/19 23:15 Dose: 999 mls/hr Documented by: [id number] Levetiracetam 1,000 mg/ Sodium (Chloride) 110 mls @ 440 mls/hr IV NOW ONE Stop: 07/03/19 11:44 Last Infusion: 07/03/19 12:14 Dose: 0 mls/hr Documented by: [id number] Admin: 07/03/19 11:45 Dose: 440 mls/hr Documented by: [id number] Description This is a 21 electrode EEG with a single channel dedicated to limited EKG. The electrodes were placed in accordance with the International 10-20 system. There is a posterior dominant rhythm of 10 Hz which is symmetrically distributed and attenuates with eye opening. There is a normal anterior to posterior organization. Photic stimulation is unremarkable. Hyperventilation is not performed. There is a symmetric frontal beta rhythm. There is no focal or lateralized slowing. Sleep is not observed. No epileptiform abnormalities o bserved. Interpretation This is a normal-appearing awake/drowsy EEG. A normal EEG does not completely exclude a diagnosis of epilepsy. Further clinical correlation may be needed. [facility] EEG Procedure Codes Indication for Procedure (1) Seizure: Neurology Neurology: [id number] EEG include record awake & drowsy
[2019-07-04] MEDS: levETIRAcetam 500 MG TAB PO SCH ×2 (08:11→21:12)
[2019-07-04] MEDS: dilTIAZem HCL 30 MG TAB PO SCH ×3 (08:11→21:11)
[2019-07-04] MEDS: FLUTICASONE FUROATE 100MCG 14 PUFFS/INHALER INH SCH (08:12)
[2019-07-04] MEDS: SERTRALINE HCL 50 MG TABLET PO SCH (08:12)
--- NOTE | 2019-07-04 09:03 | Hospitalist Progress Note ---
Date of Service July 04, 2019 Assessment & Plan (1) Sepsis: * 2nd to UTI and probable prostatitis given elevated PSA at 24.9 * E. Coli growth in urine, pansensitive --> will switch to bactrim for prostatic penetration beginning AM 07/04 (On day 3 of IV Rocephin) * Blood cx NGTD * BPs stable , currently 143/71 * Repeat CBC am (2) Hematuria: * Likely due to combination of UTI/Prostatitis and traumatic catheterization at outside facility in the setting of chronic coumadin use and BPH. * Hematuria is about the same, per patient * Bladder scan acceptable * Urology consult appreciated. -- will need outpatient follow-up * Cont to monitor for recurrent bleeding --> If it recurs then reverse coumadin w/ vit K. (3) Seizure: * lasting approx 2 minutes evening/overnight 07/01. Per patient, has had several in past with most recent approximately 5 years ago. Not on any meds currently although patient believes he may have been on something in the past * Neurology consult -- appreciate recommendations * Seizure precautions, ativan prn * CT head/MRI Brain without age-related vascular changes, no acute findings * EEG without abnormality * Given Keppra loading dose 07/02 and will continue 500mg BID dosing -- to be continued at discharge * Continue to monitor (4) Compression fracture: * See on CXR 07/02 * Continue pain --> dedicated CT Thoracic spine with mild-moderate acute comp ression fracture at T8 without associated retropulsion. Chronic compression deformities at T12, L1 unchanged from prior * Vitamin D level obtained, low at 12.2 --> will start on oral supplementation * K-pad for comfort evening of 07/02 without much alleviation * Will order TLSO brace for support * Could consider miacalcin nasal spray (5) UTI (urinary tract infection): * 2nd Ecoli as above, pansensitive * Continue IV Rocephin -- can switch to oral starting AM 07/04 (currently on day 3 of tx) (6) Acute prostatitis: * Likely. * EVELYN with boggy prostate on 07/02, not exquisitely tender to palpation * PSA elevated at 24.9 * Will need to continue Flomax * Will need follow up with Urology for further evaluation outpatient (7) BPH loc w urin obs/LUTS: * Flomax. * Reyes if any retention. (8) Hypoxia: * Pox 84% evening 07/01 * CXR with bibasilar atelectasis vs acute process * Repeat CXR 07/02 with improvement of R basilar opacity, which may have been resolved infiltrate vs atelectasis * Will obtain overnight pulse ox, as patient dropped to to 88% again night of 07/02 * Patient denies hx of TAISHA * Encouraged use of incentive spirometer -- discussed with nursing * Wean O2 as able * Continue to monitor -- currently 91% on RA (9) Hypothyroid: * Chronic. Stable. * TSH wnl * Continue home levothyroxine 137mcg PO daily (10) Hypertension: * Chronic. Stable * BP currently 136/77 * Continue home diltiazem 30mg TID * Continue to monitor (11) Dyslipidemia: * Chronic. Stable * Continue Crestor (12) COPD (chronic obstructive pulmonary disease): * in light of weight loss obtain cxr, r/o masses etc * cont inhalers * Add duonebs prn for wheezing (13) DVT prophylaxis: * Continue home coumadin 5mg daily, uncertain as to why he is on this medication * INR 2.0 * Repeat INR in AM Admission and Anticipated Discharge Date Admission Date: July 01, 2019 Supervising Physician Co-Signing Physician Notes Attending Attestation - Chart reviewed, care plan d/w NAY Coughlin. I agree w/ the rondon components of her documentation. Cont abx for UTI/prostatitis. Seizure - w/u negative; agree w/ keppra. Compression fracture - acute - suffered during his seizure? TLSO brace, pain meds, etc. Other plans per Ms Coughlin. Mikel Marie MD Subjective Patient evaluated this morning. States he does continue to have some pain in his rib cage and around his back when he takes a deep breath. Discussed findings of compression fracture and low vitamin D levels and that we will obtain dedicated imaging of the spine as well as start on oral vitamin D supplementation. Discussed ordered K-pad for comfort but that we may need to get him a brace if it continues to be uncomfortable. Also discussed elevated PSA and relation to probable prostatitis but that he will need further follow up with Urology outpatient. Patient denies any improvement of hematuria symptoms, stating they are about the same. Patient states he is eating/drinking without difficulty. Denies any shortness of breath, abdominal pain, dysuria, fever, chills at this time. Continues to have non-productive cough, at baseline per patient. He states he has been using his inhaler. All other questions/concerns addressed. Review of Systems Review of Systems: All systems reviewed & are unremarkable except as noted in HPI & below Physical Exam Physical Exam: Constitutional WD/WN, vitals as above no acute distress Eyes + anicteric sclerae and PERRL Neck trachea midline, no thyromegaly Respiratory normal respiratory effort; no respiratory distress and no labored breathing. 90% SpO2 on RA during examination Auscultation: + diminished lung sounds (bases bilaterally); expiratory wheezing in the bases; no crackles Cardiovascular RRR, no murmur, no edema Gastrointestinal (Abdomen) normal bowel sounds, soft, nontender, no hepatosplenomegaly Musculoskeletal no cyanosis or clubbing, extremities motor strength 5/5 Minimally tender to palpation over thoracic vertebral bodies as well as lower ribcage Skin no rashes, warm and dry Neurologic PERRL, EOMI, accommodation nl, no face palsy, no dysarthria Psychiatric Orientation: alert and oriented x 2 Lymphatic no cervical or axillary lymphadenopathy Results & Data Results & Data ([facility]) Vital Signs (Past 12 Hours) Vital Signs Temp Pulse Pulse Resp BP Pulse Ox 07/04/19 07:09 97 H 18 90 07/03/19 23:30 93 07/03/19 23:27 37.0 C 83 16 143/71 H 88 L 07/03/19 21:40 82 141/80 H Laboratory Results 07/04/19 07/04/19 07/04/19 Range/Units 05:52 05:52 05:52 WBC 11.31 H (4.8-10.8) K/uL RBC 3.42 L (4.7-6.1) M/uL Hgb 10.1 L (14.0-18.0) g/dL Hct 29.9 L (42-52) % MCV 87.4 (80-100) fL MCH 29.5 (25-34) pg MCHC 33.8 (32-36) g/dL RDW Std Deviation 51.1 H (36.4-46.3) fL RDW Coeff of Meryr 15.8 H (11.5-14.5) % Plt Count 146 (130-400) K/uL MPV 10.6 H (7.4-10.4) fL Immature Gran % (Auto) 0.4 % Neut % (Auto) 86.0 % Lymph % (Auto) 6.8 % [place] % (Auto) 5.0 % Eos % (Auto) 1.6 % Baso % (Auto) 0.2 % Immature Gran # (Auto) 0.05 H (0.00-0.02) K/uL Neut # (Auto) 9.73 H (1.4-6.5) K/uL Lymph # (Auto) 0.77 L (1.2-3.4) K/uL [place] # (Auto) 0.56 (0.11-0.59) K/uL Eos # (Auto) 0.18 (0-0.5) K/uL Baso # (Auto) 0.02 (0-0.2) K/uL PT 21.1 H (9.0-12.0) Seconds INR 2.1 H (0.9-1.1) Sodium 136 (136-145) mmol/L Potassium 3.5 (3.5-5.1) mmol/L Chloride 104 (98-107) mmol/L Carbon Dioxide 24 (21-32) mmol/L Anion Gap 8.0 (3-11) BUN 19 H (7-18) mg/dl Creatinine 0.63 (0.6-1.4) mg/dl Est Cr Clr Drug Dosing 112.5 ml/min Est GFR ( Amer) 114.1 Est GFR (Non-Af Amer) 98.5 BUN/Creatinine Ratio 30.8 H (10-20) Glucose 83 (70-99) mg/dl Calcium 7.8 L (8.5-10.1) mg/dl Total Bilirubin 0.6 (0.2-1) mg/dl Direct Bilirubin (0-0.2) mg/dl AST 41 H (15-37) U/L ALT 30 (12-78) U/L Alkaline Phosphatase 50 (45-117) U/L Total Protein 6.5 (6.4-8.2) gm/dl Albumin 2.7 L (3.4-5.0) gm/dl Globulin 3.8 (2.5-4.0) gm/dl Albumin/Globulin Ratio 0.7 L (0.9-2) Prostate Specific Ag (0-4) ng/ml 25-OH Vitamin D Total (30-100) ng/ml 07/03/19 07/03/19 07/03/19 Range/Units 16:25 16:25 06:57 WBC (4.8-10.8) K/uL RBC (4.7-6.1) M/uL Hgb (14.0-18.0) g/dL Hct (42-52) % MCV (80-100) fL MCH (25-34) pg MCHC (32-36) g/dL RDW Std Deviation (36.4-46.3) fL RDW Coeff of Merry (11.5-14.5) % Plt Count (130-400) K/uL MPV (7.4-10.4) fL Immature Gran % (Auto) % Neut % (Auto) % Lymph % (Auto) % [place] % (Auto) % Eos % (Auto) % Baso % (Auto) % Immature Gran # (Auto) (0.00-0.02) K/uL Neut # (Auto) (1.4-6.5) K/uL Lymph # (Auto) (1.2-3.4) K/uL [place] # (Auto) (0.11-0.59) K/uL Eos # (Auto) (0-0.5) K/uL Baso # (Auto) (0-0.2) K/uL PT (9.0-12.0) Seconds INR (0.9-1.1) Sodium (136-145) mmol/L Potassium (3.5-5.1) mmol/L Chloride (98-107) mmol/L Carbon Dioxide (21-32) mmol/L Anion Gap (3-11) BUN (7-18) mg/dl Creatinine (0.6-1.4) mg/dl Est Cr Clr Drug Dosing ml/min Est GFR ( Amer) Est GFR (Non-Af Amer) BUN/Creatinine Ratio (10-20) Glucose (70-99) mg/dl Calcium (8.5-10.1) mg/dl Total Bilirubin 0.5 (0.2-1) mg/dl Direct Bilirubin 0.1 (0-0.2) mg/dl AST 30 (15-37) U/L ALT 21 (12-78) U/L Alkaline Phosphatase 51 (45-117) U/L Total Protein 6.7 (6.4-8.2) gm/dl Albumin 2.9 L (3.4-5.0) gm/dl Globulin (2.5-4.0) gm/dl Albumin/Globulin Ratio (0.9-2) Prostate Specific Ag 24.900 H (0-4) ng/ml 25-OH Vitamin D Total 12.2 L (30-100) ng/ml Diagnostic Findings CXR IMPRESSION: 1. Moderate compression fracture in the lower thoracic spine new from yesterday. This is consistent with acute fracture. 2. Chronic moderate compression fracture in the upper lumbar spine. 3. Decreased conspicuity of the prior right basilar opacity. This may represent resolved infiltrate or atelectasis. 4. Megaly without evidence of congestive change. IMPRESSION: No intraorbital metallic foreign body to preclude MRI exam. Head CT Impression: No significant change compared to the prior study. No acute intracranial abnormality. MRI BRAIN IMPRESSION: 1. Motion degraded exam. 2. Within the limitations of the study, no acute intracranial abnormality identified. Specifically, there is no evidence of acute or subacute infarct. 3. Age-related involutional changes with moderate to extensive T2/FLAIR hyperintensities throughout the white matter suggestive of chronic microvascular ischemic disease. EEG Interpretation This is a normal-appearing awake/drowsy EEG. A normal EEG does not completely exclude a diagnosis of epilepsy. Further clinical correlation may be needed. CT Thoracic Spine IMPRESSION: 1. Mild to moderate acute compression fracture at T8. No associated retropulsion. 2. Chronic compression deformities at T12 and L1, unchanged. PG Care Time/CCT Total # of Minutes Spent Total Time Spent with Patient: Total time spent is greater than 50% in coordination of care (as documented) at patient's floor/unit and/or counseling patient: Coding Level of Care Code 59079 Subseq Hosp Care Lvl 3 Diagnoses Sepsis A41.9 Sepsis acute organ dysfunction status: unspecified Sepsis type: sepsis due to unspecified organism Hematuria R31.0 Hematuria type: gross Seizure R56.9 Compression fracture UTI (urinary tract infection) N30.01 Hematuria presence: with hematuria Urinary tract infection type: acute cystitis Acute prostatitis N41.0 BPH loc w urin obs/LUTS N40.1 Hypoxia R09.02 Hypothyroid E03.9 Hypothyroidism type: unspecified Hypertension I10 Hypertension type: essential hypertension Dyslipidemia E78.5 COPD (chronic obstructive pulmonary disease) J44.9 COPD type: unspecified COPD DVT prophylaxis Z29.9 (1) UTI (urinary tract infection) Hematuria presence: with hematuria Urinary tract infection type: acute cystitis Qualified Code(s): N30.01 - Acute cystitis with hematuria (2) Hematuria Hematuria type: gross Qualified Code(s): R31.0 - Gross hematuria (3) Hypothyroid Hypothyroidism type: unspecified Qualified Code(s): E03.9 - Hypothyroidism, unspecified (4) Sepsis Sepsis acute organ dysfunction status: unspecified Sepsis type: sepsis due to unspecified organism Qualified Code(s): A41.9 - Sepsis, unspecified organism (5) COPD (chronic obstructive pulmonary disease) COPD type: unspecified COPD Qualified Code(s): J44.9 - Chronic obstructive pulmonary disease, unspecified (6) Hypertension Hypertension type: essential hypertension Qualified Code(s): I10 - Essential (primary) hypertension
[2019-07-04] MEDS: CHOLECALCIFEROL 1,000 UNITS 25 MCG TAB PO SCH (09:08)
--- NOTE | 2019-07-04 09:13 | Neurology Consultation ---
Date of Consultation July 04, 2019 Assessment & Plan (1) Seizure: Suspected seizure disorder. Recent seizure occurs in the context of UTI, acute prostatitis, and urosepsis. Reported history of similar episodes in the past is extremely limited and unreliable. Although this patient's recent neuro imaging evaluation and EEG did not provide strong supportive evidence of a seizure disorder, I would recommend continuing with Keppra for seizure prophylaxis at this time. Continue with current Keppra dosage at time of discharge as well. Plan for long-term anticonvulsant therapy in this patient. Consider repeat outpatient EEG if he were to have further convulsive episodes. No further immediate recommendations. History of Present Illness Reason for Consultation: seizure Requesting Physician: Jeannine Coughlin PA-C Attending Physician: Mikel Marie History of Present Illness The patient is a 74-year-old male prisoner who presented to the emergency department on June 30 with a chief complaint of hematuria for 5 days. He has also been confused although there appears to be a history of memory loss or neurocognitive disorder. He is on warfarin. The patient has been evaluated by urology and is felt to probably have acute prostatitis and UTI. The patient apparently had a convulsive episode at approximately 8 PM on July 01 as described in the nursing record. The patient is amnestic for this event. According to nursing documentation, a code purple was called. The seizure persisted for 2 minutes and was followed by confusion and agitation with the patient moving about in bed. He was lethargic afterwards. Upon speaking with the patient about this episode at bedside this morning, he remains largely amnestic. He denies experiencing any warning sign or premonitory aura. The patient has apparently reported having seizure-like episodes in the past. Upon questioning the patient regarding his history, he reports that he is not really certain. He does not know when his last episode occurred and is not really able to tell me when they began. He does not think he had episodes as a young adult or in childhood. He indicates that his memory is poor and is not really able to relay any additional details. He does indicate that his sister has a history of seizure disorder. Otherwise, the patient is a fairly limited historian. There are no medical records available pertaining to his reported history of seizures, neurocognitive disorder, or memory loss. I discussed this patient's case with Jeannine Coughlin PA-C over the telephone yesterday afternoon and had recommended additional testing including brain MRI and EEG as well as treatment with Keppra. The imaging studies were largely unremarkable and described below. I reviewed the EEG this morning which is also unremarkable and negative for any epileptiform abnormalities. Additional details as below. Allergies Allergy/AdvReac Type Severity Reaction Status Date / Time No Known Allergies Allergy Verified 07/01/19 19:55 Home Medications Home Medications Medication Instructions Recorded Confirmed Type ciclesonide [Alvesco] 1 puff INHALATION BID 07/01/19 07/01/19 History diltiazem HCl 30 mg PO TID 07/01/19 07/01/19 History levalbuterol tartrate [Xopenex HFA] 2 inh INHALATION QID 07/01/19 07/01/19 History levothyroxine 137 mcg PO QAM 07/01/19 07/01/19 History rosuvastatin 40 mg PO QPM 07/01/19 07/01/19 History sertraline 75 mg PO QAM 07/01/19 07/01/19 History sulfamethoxazole-trimethoprim 1 tab PO BID 07/01/19 07/01/19 History [Bactrim DS] warfarin 5 mg PO QPM 07/01/19 07/01/19 History Patient History Medical History COPD (chronic obstructive pulmonary disease) Dyslipidemia Hypertension Hypothyroid Neurocognitive disorder Family History Sister Seizures Other No significant family history Social History Preferred Language: [place] Citizen Communication Ability: Effective 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 Beliefs That Will Affect Care: None Current Living Situation: Other Current Living Situation Comment: Skilled Nursing Feels Safe at Home: Yes Smoking Status: Unknown if ever smoked Hx Alcohol Use: No Hx Substance Use: No Review of Systems Constitutional: no fever and no chills Eyes: no blind spots and no diplopia Ear, Nose, Mouth, Throat: + hearing loss Respiratory: no cough and no dyspnea Cardiovascular: no chest pain and no palpitations Gastrointestinal: no nausea and no vomiting Genitourinary: + dysuria and + hematuria Musculoskeletal: no neck pain and no myalgia Integumentary: no rash and no lesions Neurologic: as per Subjective / HPI, + seizure-like activity and + confusion; no localized weakness, no loss of sensation, no abnormal movements and no headache(s) Psychiatric: no depression and no anxiety Hematologic / Lymphatic: no easy bleeding Exam (Neuro) Constitutional: well developed and well nourished; no acute distress Eyes: normal visual sandoval by confrontation, PERRL, normal accommodation and EOM intact bilaterally; no fundoscopic abnormality, no nystagmus and no papilledema Cardiovascular: Vessels: normal carotid upstroke; no carotid bruit Neurologic: Oriented to:: Person, Place and Time Memory: Short Term Intact and Remote Intact Attention: Span Intact and Concentration Intact Language: Naming Objects and Repeating Phrases Speech Fluency: negative Dysarthria Speech Aphasia: negative Aphasia Fund of Knowledge: Current E vents, Past History and Vocabulary Cranial Nerves: Normal II (Visual sandoval full to confrontation, visual acuity normal), III, IV, (Pupils equal round reactive to light and accommodation, eye movements normal), V (Facial sensation intact), VII (There is no facial droop or weakness), VIII (Hearing intact), IX, X (Palate elevates to midline), XI (Shoulder shrug intact) and XII (Tongue protrudes to midline) Motor Strength: Normal Lower Extremities and Normal Upper Extremities; negative Pronator Drift Motor Tone: Normal Lower Extremities and Normal Upper Extremities Muscle Bulk/Involuntary Movements: No Involuntary Movements; negative Muscle Atrophy Sensation: Light Touch Intact, Pain/Temperature Intact, Vibration Intact and Proprioception Intact Coordination: Normal; negative Limited Balance, Dysdiadochokinesia, Finger-Nose Abnormal and Heel-Saavedra Abnormal Deep Tendon Reflexes: Rt Triceps: 2+, Lt Triceps: 2+, Rt Biceps: 2+, Lt Biceps: 2+, Rt Brachioradialis: 2+, Lt Brac hioradialis: 2+, Rt Patellar: 2+, Lt Patellar: 2+, Rt Ankle: 2+ and Lt Ankle: 2+ Special Tests: negative Babinski Present Details: Evaluation of gait deferred in the context of current medical condition, patient restrained/cuffed to bed. Results & Data ([facility]) Vital Signs (Past 12 Hours) Vital Signs Temp Pulse Pulse Resp BP Pulse Ox 07/04/19 07:09 97 H 18 90 07/03/19 23:30 93 07/03/19 23:27 37.0 C 83 16 143/71 H 88 L 07/03/19 21:40 82 141/80 H Laboratory Results WBC 11.31, hemoglobin 10.1, hematocrit 29.9, platelet count 146, INR 2.1, sodium 136, potassium 3.5, BUN 19, creatinine 0.63, glucose 83, calcium 7.8, AST 41, ALT 30, PSA 24.9, urinalysis positive, suggestive of UTI Diagnostic Findings CT of the head completed July 03, 2019- for hemorrhage or acute process. There is evidence of chronic microvascular ischemic change. I reviewed the images as well as the radiologist's interpretation of this test. MRI of the brain completed July 03, 2019 is negative for acute or subacute stroke. There is a moderate degree of chronic microvascular ischemic change. No hemorrhage. No hydrocephalus. Mesial temporal lobes are unremarkable bilaterally. There is a focus of increased flair signal at the base of the right temporal lobe not appreciated on other sequences, probably artifactual. I reviewed the images as well as the radiologist's interpretation of this test. An electrocardiogram completed July 02, 2019 revealed a normal sinus rhythm. An electroencephalogram completed this morning reveals a normal 10 Hz background alpha rhythm and is otherwise unremarkable and without evidence of focal or lateralized slowing, epileptiform abnormalities, or encephalopathy. Coding Level of Care Code 48279 Inpt Consult Level 5 Diagnoses Seizure R56.9
[2019-07-04] MEDS ORDERED: IOVERSOL 100ml IV PRN (09:59)
--- NOTE | 2019-07-04 10:20 | CT Scan Report ---
THORACIC SPINE CT with contrast CT DOSE: 1083.75 mGy.cm HISTORY: Back pain. new thoracic compression fracture, elevated PSA TECHNIQUE: Multiaxial CT images of the thoracic spine were performed and reformatted in the sagittal and coronal plane following the use of intravenous contrast. A dose lowering technique was utilized adhering to the principles of ALARA. COMPARISON: Chest 07/03/2019. FINDINGS: Old, healed right lower posterior rib fractures. Paraspinal soft tissues are unremarkable. No significant central canal narrowing by CT technique. No pneumothorax. Mild facet degenerative carey ges seen throughout the thoracic spine. No change in the T12 and L1 moderate anterior wedge-shaped co mpression deformities. Therefore, these are considered to be chronic. [id number] central compre ssion fracture at T8 is again noted and is consistent with an acute superior and inferior endplate co mpression fracture. No significant retropulsion. This demonstrates up to 25% loss of height. Straight ening of the thoracic spine. No subluxation. Mild degenerative disc disease throughout the thoracic s pine. No associated retropulsion. IMPRESSION: 1. Mild to moderate acute compression fracture at T8. No associated retropulsion. 2. Chronic compression deformities at T12 and L1, unchanged. ACT 112: Negative or not required by law. Electronically signed by: Adair Bailey M.D. 07/04/2019 10:18 AM
[2019-07-04] MEDS ORDERED: ALBUTEROL 0.083% NEBU SOLN 3 ML VIAL NEB PRN (12:26)
[2019-07-04] MEDS: WARFARIN SOD 5 MG TAB PO SCH (15:33)
[2019-07-04] MEDS ORDERED: lisinopriL 5 MG TAB PO ONE (18:25)
[2019-07-04] MEDS ORDERED: SULFAMETHOXAZOLE/TRIMETHOPRIM DS 800/160MG TAB PO SCH (21:00)
[2019-07-04] MEDS: ROSUVASTATIN CALCIUM 20 MG TAB PO SCH (21:12)
[2019-07-04] MEDS: TAMSULOSIN HCL 0.4 MG CAP PO SCH (21:12)
[2019-07-04] MEDS: cefTRIAXone SODIUM 1,000 MG in DEXTROSE 5% 50 ML IV SCH (21:13)
[2019-07-05] MEDS: LEVOTHYROXINE SODIUM 137 MCG TABLET PO SCH (05:44)
[2019-07-05 07:22] LABS: Hematocrit (blood only) 29.9 % (42-52); Hemoglobin 10.2 g/dL (14.0-18.0); Mean Corpuscular Hemoglobin 29.2 pg (25-34); Mean Corpuscular Hgb Conc 34.1 g/dL (32-36); Mean Corpuscular Volume 85.7 fL (80-100); Mean Platelet Volume 9.9 fL (7.4-10.4); Platelet Count 164 K/uL (130-400); RDW Coefficient of Variation 15.3 % (11.5-14.5); RDW Standard Deviation 48.4 fL (36.4-46.3); Red Blood Count 3.49 M/uL (4.7-6.1); White Blood Count 8.23 K/uL (4.8-10.8)
[2019-07-05 07:33] LABS: INR 2.3 (0.9-1.1); Prothrombin Time 22.9 Seconds (9.0-12.0)
[2019-07-05 07:59] LABS: BUN Creatinine Ratio 18.3 (10-20); Calcium 8.2 mg/dl (8.5-10.1); Creatinine Clr Calc Pharmacy 114.3 ml/min; Est GFR (African American) 114.9; Est GFR (Non-African American) 99.1; Potassium 3.1 mmol/L (3.5-5.1)
[2019-07-05 08:06] LABS: Albumin Globulin Ratio 0.8 (0.9-2); Bilirubin,Total 0.7 mg/dl (0.2-1); Globulin 3.8 gm/dl (2.5-4.0); Total Protein 6.8 gm/dl (6.4-8.2)
[2019-07-05] MEDS: CHOLECALCIFEROL 1,000 UNITS 25 MCG TAB PO SCH (08:54)
[2019-07-05] MEDS: FLUTICASONE FUROATE 100MCG 14 PUFFS/INHALER INH SCH (08:54)
[2019-07-05] MEDS: SERTRALINE HCL 50 MG TABLET PO SCH (08:54)
[2019-07-05] MEDS: dilTIAZem HCL 30 MG TAB PO SCH ×4 (08:54→20:53)
[2019-07-05] MEDS: levETIRAcetam 500 MG TAB PO SCH ×2 (08:55→20:53)
[2019-07-05] MEDS: SULFAMETHOXAZOLE/TRIMETHOPRIM DS 800/160MG TAB PO SCH ×2 (09:12→20:54)
[2019-07-05] MEDS ORDERED: POTASSIUM CHLORIDE 20 MEQ TABCR PO STA (09:21)
--- NOTE | 2019-07-05 11:12 | Hospitalist Progress Note ---
Date of Service July 05, 2019 Assessment & Plan (1) Sepsis: * 2nd to UTI and probable prostatitis given elevated PSA at 24.9 * E. Coli growth in urine, pansensitive --> had been on IV Rocephin, switched to Bactrim on 07/04 (day 4 of tx) * Blood cx NGTD * BPs stable , currently elevated at 172/80 * Repeat CBC am (2) Hematuria: * Likely due to combination of UTI/Prostatitis and traumatic catheterization at outside facility in the setting of chronic coumadin use and BPH. * Hematuria is about the same, per patient * Bladder scan acceptable * H/h stable, slightly improved to 10.2/29.9 * Urology consult appreciated. -- will need outpatient follow-up * Cont to monitor for recurrent bleeding --> If it recurs then reverse coumadin w/ vit K. * Reported blood in stool last night, although no recollection. Hemoccult ordered, although patient already now on iron supplementation. No hemorrhoids appreciated on EVELYN 07/02. If recurs, patient to notify nursing. (3) Seizure: * lasting approx 2 minutes evening/overnight of 07/01. Per patient, has had several in past with most recent approximately 5 years ago. Not on any meds currently although patient believes he may have been on something in the past * Neurology consult -- appreciate recommendations * Seizure precautions, ativan prn * CT head/MRI Brain without age-related vascular changes, no acute findings * EEG without abnormality * Keppra loading dose on 07/02, continued at 500mg PO BID, to be continued at discharge. * Some confusion reported this morning, possibly related to hospital delirium vs HTN vs bactrim vs other -- will get better BP control and see if symptoms improve * Continue to monitor (4) Compression fracture: * See on CXR 07/02 * Continue pain --> dedicated CT Thoracic spine with mild-moderate acute compr ession fracture at T8 without associated retropulsion. Chronic compression deformities at T12, L1 unchanged from prior * Vitamin D level obtained, low at 12.2 --> started on oral supplementation * K-pad for comfort evening of 07/02 without much alleviation * TLSO brace for support -- confirmed ok with retirement by CM on 07/04. Currently in room with patient -- to be worn when out of bed * Could consider miacalcin nasal spray * Will order T3 prn for pain (5) Hypertension: * Chronic * Elevated at 172/80 currently with periods of confusion/hallucinations this morning reported * Ordered lisinopril 5mg PO daily, started on 07/03 * Increased home diltiazem to 30mg QID * Continue to monitor (6) UTI (urinary tract infection): * 2nd Ecoli as above, pansensitive * On day 4 of tx, currently on Bactrim. Previously on Ceftriaxone IV x 3 days (7) Acute prostatitis: * Likely. * EVELYN with boggy prostate on 07/02, not exquisitely tender to palpation * PSA elevated at 24.9 * Will need to continue Flomax * Will need follow up with Urology for further evaluation outpatient (8) BPH loc w urin obs/LUTS: * Flomax. * Reyes if any retention. (9) Hypoxia: * Pox 84% evening 07/01 -- CXR with bibasilar atelectasis vs acute process * Repeat CXR 07/02 with improvement of R basilar opacity, which may have been resolved infiltrate vs atelectasis * Patient dropped to 88% evening of 07/02 -- denies hx TAISHA, although poor h istorian * Encouraged continued use of incentive spirometer * Overnight pulse ox unable to be completed due to patient compliance -- CM discussed with [facility] and they will be able to see if he qualifies on return and be able to provide (10) Hypothyroid: * Chronic. Stable. * TSH wnl * Continue home levothyroxine 137mcg PO daily (11) Dyslipidemia: * Chronic. Stable * Continue Crestor (12) COPD (chronic obstructive pulmonary disease): * in light of weight loss obtain cxr, r/o masses etc * cont inhalers * Add duonebs prn for wheezing (13) Hypokalemia: * K 3.1 -- ordered 40meq PO * Repeat in AM (14) DVT prophylaxis: * Continue home coumadin 5mg daily, uncertain as to why he is on this medication * INR 2.3 * Repeat INR in AM Dispo: likely to remain inpatient overnight, possible d/c Tuesday Admission and Anticipated Discharge Date Admission Date: July 01, 2019 Supervising Physician Co-Signing Physician Notes Attending Attestation - Chart reviewed in detail, care plan d/w NAY Coughlin. I agree w/ the rondon components of her documentation. Mikel Marie MD Subjective Patient evaluated this morning in bed. Per patient, he states he is feeling the best he has, although the guards state he had been having some hallucinations this morning and seeing objects in the room that werent there. Discussed TLSO brace with patient and that the [facility] had ok'd this with CM department. Due to inability to perform overnight pulse ox to determine if patient needs O2, this was also discussed with retirement and they agreed to test him there to see if he needs this. Patient states he has been eating and drinking without trouble. Denies chest pain or shortness of breath, headache or dizziness. Patient denies any increasing abdominal fullness, fevers, chills. Still with cough, non-productive. Has been using inhaler with improvement. Patient hopeful for discharge when stable although he is aware he will need further follow-up with Urology for hematuria. Patient states he believes the hematuria is about the same. Review of Systems Review of Systems: All systems reviewed & are unremarkable except as noted in HPI & below Physical Exam Physical Exam: Constitutional WD/WN, vitals as above, laying in bed no acute distress Eyes + anicteric sclerae and PERRL Neck trachea midline, no thyromegaly Respiratory normal respiratory effort; no respiratory distress and no labored breathing. 92% SpO2 on RA during examination Auscultation: + diminished lung sounds (bases bilaterally); no wheezes, crackles Cardiovascular RRR, no murmur, no edema Gastrointestinal (Abdomen) normal bowel sounds, soft, nontender, no hepatosplenomegaly tympanic to percussion, distended Musculoskeletal no cyanosis or clubbing, extremities motor strength 5/5 Minimally tender to palpation over thoracic vertebral bodies as well as lower ribcage Skin no rashes, warm and dry Neurologic PERRL, EOMI, accommodation nl, no face palsy, no dysarthria Psychiatric Orientation: alert and oriented x 2 Lymphatic no cervical or axillary lymphadenopathy Results & Data Results & Data ([facility]) Vital Signs (Past 12 Hours) Vital Signs Temp Pulse Pulse Resp BP Pulse Ox Pulse Ox 07/05/19 07:47 36.6 C 83 20 180/79 H 92 07/05/19 01:01 84 89 L 07/05/19 00:00 36.5 C 75 18 164/96 H 92 07/04/19 23:30 80 90 Laboratory Results 07/05/19 07/05/19 07/05/19 Range/Units 06:37 06:37 06:37 WBC 8.23 (4.8-10.8) K/uL RBC 3.49 L (4.7-6.1) M/uL Hgb 10.2 L (14.0-18.0) g/dL Hct 29.9 L (42-52) % MCV 85.7 (80-100) fL MCH 29.2 (25-34) pg MCHC 34.1 (32-36) g/dL RDW Std Deviation 48.4 H (36.4-46.3) fL RDW Coeff of Merry 15.3 H (11.5-14.5) % Plt Count 164 (130-400) K/uL MPV 9.9 (7.4-10.4) fL PT 22.9 H (9.0-12.0) Seconds INR 2.3 H (0.9-1.1) Sodium 135 L (136-145) mmol/L Potassium 3.1 L (3.5-5.1) mmol/L Chloride 100 (98-107) mmol/L Carbon Dioxide 26 (21-32) mmol/L Anion Gap 9.0 (3-11) BUN 11 (7-18) mg/dl Creatinine 0.62 (0.6-1.4) mg/dl Est Cr Clr Drug Dosing 114.3 ml/min Est GFR ( Amer) 114.9 Est GFR (Non-Af Amer) 99.1 BUN/Creatinine Ratio 18.3 (10-20) Glucose 85 (70-99) mg/dl Calcium 8.2 L (8.5-10.1) mg/dl Total Bilirubin 0.7 (0.2-1) mg/dl AST 45 H (15-37) U/L ALT 35 (12-78) U/L Alkaline Phosphatase 57 (45-117) U/L Total Protein 6.8 (6.4-8.2) gm/dl Albumin 3.0 L (3.4-5.0) gm/dl Globulin 3.8 (2.5-4.0) gm/dl Albumin/Globulin Ratio 0.8 L (0.9-2) PG Care Time/CCT Total # of Minutes Spent Total Time Spent with Patient: Total time spent is greater than 50% in coordination of care (as documented) at patient's floor/unit and/or counseling patient: Coding Level of Care Code 02208 Subseq Hosp Care Lvl 3 Diagnoses Sepsis A41.9 Sepsis acute organ dysfunction status: unspecified Sepsis type: sepsis due to unspecified organism Hematuria R31.0 Hematuria type: gross Seizure R56.9 Compression fracture Hypertension I10 Hypertension type: essential hypertension UTI (urinary tract infection) N30.01 Hematuria presence: with hematuria Urinary tract infection type: acute cystitis Acute prostatitis N41.0 BPH loc w urin obs/LUTS N40.1 Hypoxia R09.02 Hypothyroid E03.9 Hypothyroidism type: unspecified Dyslipidemia E78.5 COPD (chronic obstructive pulmonary disease) J44.9 COPD type: unspecified COPD Hypokalemia E87.6 DVT prophylaxis Z29.9 (1) UTI (urinary tract infection) Hematuria presence: with hematuria Urinary tract infection type: acute cystitis Qualified Code(s): N30.01 - Acute cystitis with hematuria (2) Hematuria Hematuria type: gross Qualified Code(s): R31.0 - Gross hematuria (3) Hypothyroid Hypothyroidism type: unspecified Qualified Code(s): E03.9 - Hypothyroidism, unspecified (4) Sepsis Sepsis acute organ dysfunction status: unspecified Sepsis type: sepsis due to unspecified organism Qualified Code(s): A41.9 - Sepsis, unspecified organism (5) COPD (chronic obstructive pulmonary disease) COPD type: unspecified COPD Qualified Code(s): J44.9 - Chronic obstructive pulmonary disease, unspecified (6) Hypertension Hypertension type: essential hypertension Qualified Code(s): I10 - Essential (primary) hypertension
[2019-07-05] MEDS: lisinopriL 5 MG TAB PO SCH (11:33)
[2019-07-05] MEDS ORDERED: ACETAMINOPHEN W/CODEINE #3 1 TAB PO PRN (14:01)
[2019-07-05] MEDS: FOLIC ACID 400 MCG TAB PO SCH (14:21)
[2019-07-05] MEDS: WARFARIN SOD 5 MG TAB PO SCH (16:36)
[2019-07-05] MEDS: ROSUVASTATIN CALCIUM 20 MG TAB PO SCH (20:53)
[2019-07-05] MEDS: TAMSULOSIN HCL 0.4 MG CAP PO SCH (20:53)
[2019-07-06] MEDS: LEVOTHYROXINE SODIUM 137 MCG TABLET PO SCH (05:27)
[2019-07-06 07:25] LABS: Basophils # (auto) 0.04 K/uL (0-0.2); Basophils % (auto) 0.5 %; Eosinophils # (auto) 0.14 K/uL (0-0.5); Eosinophils % (auto) 1.8 %; Hematocrit (blood only) 30.9 % (42-52); Hemoglobin 10.7 g/dL (14.0-18.0); Immature Granulocytes # (auto) 0.34 K/uL (0.00-0.02); Immature Granulocytes % (auto) 4.5 %; Lymphocytes # (auto) 0.91 K/uL (1.2-3.4); Mean Corpuscular Hemoglobin 29.2 pg (25-34); Mean Corpuscular Hgb Conc 34.6 g/dL (32-36); Mean Corpuscular Volume 84.4 fL (80-100); Mean Platelet Volume 9.4 fL (7.4-10.4); Monocytes # (auto) 0.92 K/uL (0.11-0.59); Monocytes % (auto) 12.1 %; Neutrophils # (auto) 5.23 K/uL (1.4-6.5); Neutrophils % (auto) 69.1 %; Platelet Count 163 K/uL (130-400); RDW Standard Deviation 46.8 fL (36.4-46.3); Red Blood Count 3.66 M/uL (4.7-6.1); White Blood Count 7.58 K/uL (4.8-10.8)
[2019-07-06 07:58] LABS: Albumin Level 2.9 gm/dl (3.4-5.0); Calcium 8.6 mg/dl (8.5-10.1); Creatinine Clr Calc Pharmacy 102.7 ml/min; Est GFR (African American) 109.9; Est GFR (Non-African American) 94.8; Magnesium 2.5 mg/dl (1.8-2.4); Potassium 3.4 mmol/L (3.5-5.1)
[2019-07-06 08:01] LABS: Albumin Globulin Ratio 0.8 (0.9-2); Bilirubin,Total 0.5 mg/dl (0.2-1); Globulin 3.8 gm/dl (2.5-4.0); Total Protein 6.7 gm/dl (6.4-8.2)
[2019-07-06] MEDS: FLUTICASONE FUROATE 100MCG 14 PUFFS/INHALER INH SCH (09:04)
[2019-07-06] MEDS: dilTIAZem HCL 30 MG TAB PO SCH ×4 (09:04→20:14)
[2019-07-06] MEDS: FOLIC ACID 400 MCG TAB PO SCH (09:05)
[2019-07-06] MEDS: levETIRAcetam 500 MG TAB PO SCH ×2 (09:05→20:16)
[2019-07-06] MEDS: CHOLECALCIFEROL 1,000 UNITS 25 MCG TAB PO SCH (09:06)
[2019-07-06] MEDS: SULFAMETHOXAZOLE/TRIMETHOPRIM DS 800/160MG TAB PO SCH (09:06)
[2019-07-06] MEDS: SERTRALINE HCL 50 MG TABLET PO SCH (09:06)
[2019-07-06] MEDS: lisinopriL 5 MG TAB PO SCH (09:07)
[2019-07-06 09:27] LABS: INR 3.5 (0.9-1.1); Prothrombin Time 34.6 Seconds (9.0-12.0)
[2019-07-06] MEDS ORDERED: PHYTONADIONE 5 MG TAB PO STA ×2 (11:44→16:20)
--- NOTE | 2019-07-06 12:36 | Discharge Summary ---
Date of Service July 07, 2019 Admission HPI Per Admitting Provider Ted Irvin is a 74yo C male with history of HTN, HLP, COPD, Hypothyroidism and Neurocognitive disorder presenting from [facility] with complaint of hematuria x 1 day. He states that this AM around O4:00 he began urinating small amounts of dark red blood. Also with urinary urgency, frequency and dribbling. He reports difficulty starting his urinary stream today and needing to strain. Patient had blood work performed at the [facility] at [facility] which showed a WBC=19.38, Hgb=12.8 and Hct=35.7. A straight cath was attempted and was unsuccessful, leading to increased bleeding as well. On arrival to the ER patient afebrile, HD stable. Bladder scan was performed which showed <50mL of urine. No Reyes or straight cath attempted. Patient continues to void frequent small amounts of blood. Additionally he complaints of some suprapubic discomfort, fevers and chills x 1 day. ER Course: Ceftriaxone, NSS Admission Exam Per Admitting Provider Physical Exam: General: patient resting comfortably, NAD, non-toxic in appearance, AA&O to self and location Skin: warm, dry, intact, no rashes or lesions HEENT: NC/AT, PERRL, EOMI, anicteric sclera, conjunctiva without injection, external ear normal to inspection and nontender, nares patent, moist mucus membranes, dentition intact, no oropharyngeal lesions, neck supple, trachea midline, no LAD, no thyromegaly, no JVD Heart: +S1/S2, regular, no m/r/g Lungs: equal air entry bilaterally, no rales/rhonchi/wheezes Abd: +BS, soft, NT/ND, no masses/organomegaly/ascites Ext: warm, 2+ pulses in UE/LE bilaterally, no clubbing/cyanosis or edema Neuro: nonfocal, patient AA&O x 4, speech intact, no facial droop, moving all extremities on command with equal strength 5/5 Principal Diagnosis Hematuria, Seizure Discharge Data Allergies Allergy/AdvReac Type Severity Reaction Status Date / Time No Known Allergies Allergy Verified 07/01/19 19:55 Consultations 07/01/19 21:26 ED Decision to Admit Stat 07/01/19 23:36 Consult Urology Routine 07/03/19 11:14 Consult Neurology Routine Ordered Studies 07/01/19 20:01 CT abd pelvis wo con Stat CT head/brain wo con Stat 07/03/19 11:14 CT head/brain wo con Routine MR brain seizure wo con Routine 07/04/19 08:58 CT thoracic spine w con Routine Hospital Course (1) Sepsis: * 2nd to UTI and probable prostatitis given elevated PSA at 24.9 * E. Coli growth in urine, pansensitive --> had been on IV Rocephin, switched to Bactrim on 07/04 (day 4 of tx) * Blood cx NGTD * BPs stable , currently elevated at 172/80 * Repeat CBC am (2) Hematuria: * Likely due to combination of UTI/Prostatitis and traumatic catheterization at outside facility in the setting of chronic coumadin use and BPH. * Hematuria is about the same, per patient * Bladder scan acceptable * H/h stable, slightly improved to 10.2/29.9 * Urology consult appreciated. -- will need outpatient follow-up * Cont to monitor for recurrent bleeding --> If it recurs then reverse coumadin w/ vit K. * Reported blood in stool last night, although no recollection. Hemoccult ordered, although patient already now on iron supplementation. No hemorrhoids appreciated on EVELYN 07/02. If recurs, patient to notify nursing. (3) Seizure: * lasting approx 2 minutes evening/overnight of 07/01. Per patient, has had several in past with most recent approximately 5 years ago. Not on any meds currently although patient believes he may have been on something in the past * Neurology consult -- appreciate recommendations * Seizure precautions, ativan prn * CT head/MRI Brain without age-related vascular changes, no acute findings * EEG without abnormality * Keppra loading dose on 07/02, continued at 500mg PO BID, to be continued at discharge. * Some confusion reported this morning, possibly related to hospital delirium vs HTN vs bactrim vs other -- will get better BP control and see if symptoms improve * Continue to monitor (4) Compression fracture: * See on CXR 07/02 * Continue pain --> dedicated CT Thoracic spine with mild-moderate acute compression fracture at T8 without associated retropulsion. Chronic compression deformities at T12, L1 unchanged from prior * Vitamin D level obtained, low at 12.2 --> started on oral supplementation * K-pad for comfort evening of 07/02 without much alleviation * TLSO brace for support -- confirmed ok with senior living by CM on 07/04. Currently in room with patient -- to be worn when out of bed * Could consider miacalcin nasal spray * Will order T3 prn for pain (5) Hypertension: * Chronic * Elevated at 172/80 currently with periods of confusion/hallucinations this morning reported * Ordered lisinopril 5mg PO daily, started on 07/03 * Increased home diltiazem to 30mg QID * Continue to monitor (6) UTI (urinary tract infection): * 2nd Ecoli as above, pansensitive * On day 4 of tx, currently on Bactrim. Previously on Ceftriaxone IV x 3 days (7) Acute prostatitis: * Likely. * EVELYN with boggy prostate on 07/02, not exquisitely tender to palpation * PSA elevated at 24.9 * Will need to continue Flomax * Will need follow up with Urology for further evaluation outpatient (8) BPH loc w urin obs/LUTS: * Flomax. * Reyes if any retention. (9) Hypoxia: * Pox 84% evening 07/01 -- CXR with bibasilar atelectasis vs acute process * Repeat CXR 07/02 with improvement of R basilar opacity, which may have been resolved infiltrate vs atelectasis * Patient dropped to 88% evening of 07/02 -- denies hx TAISHA, although poor historian * Encouraged continued use of incentive spirometer * Overnight pulse ox unable to be completed due to patient compliance -- CM discussed with [facility] and they will be able to see if he qualifies on return and be able to provide (10) Hypothyroid: * Chronic. Stable. * TSH wnl * Continue home levothyroxine 137mcg PO daily (11) Dyslipidemia: * Chronic. Stable * Continue Crestor (12) COPD (chronic obstructive pulmonary disease): * in light of weight loss obtain cxr, r/o masses etc * cont inhalers * Add duonebs prn for wheezing (13) Hypokalemia: * K 3.1 -- ordered 40meq PO * Repeat in AM (14) DVT prophylaxis: * Continue home coumadin 5mg daily, uncertain as to why he is on this medication * INR 2.3 * Repeat INR in AM Bactrim switched to Keflex 500mg BID due to interactions with coumadin, as INR 3.5 on 07/05. Given 2.5mg Vitamin K. Recommend repeat INR in AM Follow up with Urology as outpatient for further evaluation of hematuria. Discharge Plan Discharge Items Reason For Visit: HEMATURIA Discharge Diagnosis: Hematuria Goals: You have been hospitalized for an acute medical problem. During your stay at , we have made an effort to correct the problem that brought you to the hospital while keeping you as comfortable as possible. Medications were used to bring your condition under control and your discharge instructions will include directions for any medications you should take after leaving the hospital. Please make sure you see your Primary Care Provider as part of your follow up plan. Activity: Resume your previous activity Non-emergency contact: Primary Care Provider Call non-emergency contact if: you have any medication questions and your symptoms worsen Follow-up/Referrals: Germán Earl DO [Physician] - Manuelito HIDALGO [Primary Care Provider] - Diet: Heart Healthy Addtl Attending Provider Instructions: You have been hospitalized for blood in your urine. Your labs were monitored and your blood counts have remained stable. You were found to have bacteria, E.Coli, in your urine as well as an enlarged and inflamed prostate, termed prostatitis. You were started on Flomax to help ease urination, which will be continued at discharge. --> This requires treatment with a longer course of antibiotics than usual for a typical "urinary tract infection". You were treated with IV antibiotics and switched to oral antibiotics to continue for an additional 4 weeks. Due to your Coumadin, you were switched to Keflex 500mg by mouth TWICE daily so that your risk of increased bleeding is decreased. It is recommended that you have a repeat INR tomorrow to see if your Coumadin needs further adjusted while on this antibiotic. Once your course of antibiotics is completed, you should follow up with Urology as an outpatient for finalization of your work-up for hematuria and bladder assessment to further rule out any masses. While you were hospitalized you were found to have an episode of seizure like activity. Testing was performed and did not show any of this activity at that time, however you were started on Keppra 500mg by mouth twice daily, given your reported history of seizures in the past and per recommendations by Neurology. With this, you have also been started on folic acid, which is to be continued daily. You were also found to have a fracture at T8 which is likely resultant from the seizure. A vitamin D level was drawn as well, which was low, and likely contributed to the fracture. --> You have been fitted for a TLSO brace for comfort, to be used while out of bed for support. --> You have also been started on Vitamin D to increase those levels and prevent further fractures. Your blood pressure was elevated during this admission, likely due to a number of factors. Adjustments to your blood pressure medications are as follows: --Diltiazem increased to 30mg by mouth FOUR TIMES DAILY NEW -- Lisinopril 5mg Please keep all follow up appointments. Please return to the emergency room if you have any increased bleeding, chest pain, shortness of breath, seizure activity, or for any other symptoms that are concerning for you. It has been a pleasure being apart of the care team providing for you while you have been in the hospital. Take care! Pending Studies at Discharge: No Stand-Alone Forms: My [facility] Skilled Items Patient informed of condition?: Yes Discharge Level of Care: Other Communicable Disease: No Discharge Prognosis: Improving Lines: None Urinary Catheter: No Medications and DC Order Prescriptions: New acetaminophen [Mapap (acetaminophen)] 325 mg Tablet 650 mg PO Q4H PRN (Reason: pain) 14 Days Qty: 30 RF: 0 levetiracetam [Keppra] 500 mg Tablet 500 mg PO BID 30 Days Qty: 60 RF: 0 folic acid 400 mcg Tablet 400 mcg PO QAM 30 Days Qty: 30 RF: 0 tamsulosin 0.4 mg Capsule 0.4 mg PO HS 30 Days Qty: 30 RF: 0 cephalexin 500 mg Capsule 500 mg PO BID Qty: 60 RF: 0 lisinopril [Zestril] 5 mg Tablet 5 mg PO QAM 30 Days Qty: 30 RF: 0 cholecalciferol (vitamin D3) 25 mcg (1,000 unit) Capsule 1,000 unit PO QAM 30 Days Qty: 30 RF: 0 diltiazem HCl 30 mg Tablet 30 mg PO QID PRN (Reason: hypertension) 30 Days Qty: 120 RF: 0 Continued levothyroxine 137 mcg Tablet 137 mcg PO QAM RF: 0 warfarin 5 mg Tablet 5 mg PO QPM RF: 0 sertraline 25 mg Tablet 75 mg PO QAM RF: 0 rosuvastatin 40 mg Tablet 40 mg PO QPM RF: 0 levalbuterol tartrate [Xopenex HFA] 45 mcg/actuation Hfa Aerosol Inhaler 2 inh INHALATION QID RF: 0 Alvesco 160 mcg/actuation Hfa Aerosol Inhaler 1 puff INHALATION BID RF: 0 Discontinued sulfamethoxazole-trimethoprim [Bactrim DS] 800-160 mg Tablet 1 tab PO BID RF: 0 diltiazem HCl 30 mg Tablet 30 mg PO TID RF: 0 Admission Data Admit Date/Time: 07/01/19 22:30 Attending Provider: Mikel Marie Admit Provider: Celina Yarbrough Primary Care Provider: Manuelito HIDALGO Other Providers: Celina Yarbrough ; Germán Earl ; Ortiz Chairez Coding Diagnoses Sepsis A41.9 Sepsis acute organ dysfunction status: unspecified Sepsis type: sepsis due to unspecified organism Hematuria R31.29 Hematuria type: other microscopic Seizure R56.9 Compression fracture Hypertension I10 Hypertension type: essential hypertension UTI (urinary tract infection) N30.01 Hematuria presence: with hematuria Urinary tract infection type: acute cystitis Acute prostatitis N41.0 BPH loc w urin obs/LUTS N40.1 Hypoxia R09.02 Hypothyroid E03.9 Hypothyroidism type: unspecified Dyslipidemia E78.5 COPD (chronic obstructive pulmonary disease) J44.9 COPD type: unspecified COPD Hypokalemia E87.6 DVT prophylaxis Z29.9
[2019-07-06 16:02] LABS: INR 3.7 (0.9-1.1); Prothrombin Time 36.6 Seconds (9.0-12.0)
--- NOTE | 2019-07-06 16:21 | Hospitalist Progress Note ---
Date of Service July 06, 2019 Assessment & Plan (1) Sepsis: * 2nd to UTI and probable prostatitis given elevated PSA at 24.9 * E. Coli growth in urine, pansensitive --> had been on IV Rocephin, switched to Bactrim on 07/04 (day 4 of tx) but switch to keflex as patient on coumadin and INR now supratherapeutic at 3.5 * Blood cx NGTD * BPs stable , currently elevated at 177/74 (2) Hematuria: * Likely due to combination of UTI/Prostatitis and traumatic c atheterization at outside facility in the setting of chronic coumadin use and BPH. * Bladder scan acceptable * H/h stable, slightly improved to 10.7/30.9 despite increased hematuria this morning * Given 2.5mg Vit K * Hold coumadin * Urology consult appreciated. -- will need outpatient follow-up * Cont to monitor for recurrent bleeding --> If it recurs then reverse coumadin w/ vit K. * Reported blood in stool evening of 07/03, although no recollection. Hemoccult ordered, although patient already now on iron supplementation. No hemorrhoids appreciated on EVELYN 07/02. If recurs, patient to notify nursing. (3) Seizure: * lasting approx 2 minutes evening/overnight of 07/01. Per patient, has had several in past with most recent approximately 5 years ago. Not on any meds currently although patient believes he may have been on something in the past * Neurology consult -- appreciate recommendations * Seizure precautions, ativan prn * CT head/MRI Brain without age-related vascular changes, no acute findings * EEG without abnormality * Keppra loading dose on 07/02, continued at 500mg PO BID, to be continued at discharge. * Some confusion reported this morning of 07/04 but IMPROVED TODAY * Continue to monitor (4) Compression fracture: * See on CXR 07/02 * Continue pain --> dedicated CT Thoracic spine with mild-moderate acute compression fracture at T8 without associated retropulsion. Chronic compression deformities at T12, L1 unchanged from prior * Vitamin D level obtained, low at 12.2 --> started on oral supplementation * K-pad for comfort evening of 07/02 without much alleviation * TLSO brace for support -- confirmed ok with nursing home by CM on 07/04. Currently in room with patient -- to be worn when out of bed * Could consider miacalcin nasal spray * Will order T3 prn for pain (5) Hypertension: * Chronic * Elevated at 177/74 * Ordered lisinopril 5mg PO daily, started on 07/03 * Increased home diltiazem to 30mg QID * Continue to monitor (6) UTI (urinary tract infection): * 2nd Ecoli as above, pansensitive * On day 5 of tx--> abx switched to keflex 500mg BID x 4 weeks for prostatitis (7) Acute prostatitis: * Likely. * EVELYN with boggy prostate on 07/02, not exquisitely tender to palpation * PSA elevated at 24.9 * Will need to continue Flomax * Will need follow up with Urology for further evaluation outpatient * Keflex as above (8) BPH loc w urin obs/LUTS: * Flomax. * Reyes if any retention. (9) Hypoxia: * Pox 84% evening 07/01 -- CXR with bibasilar atelectasis vs acute process * Repeat CXR 07/02 with improvement of R basilar opacity, which may have been resolved infiltrate vs atelectasis * Patient dropped to 88% evening of 07/02 -- denies hx TAISHA, although poor historian * Encouraged continued use of incentive spirometer * Overnight pulse ox unable to be completed due to patient compliance -- CM discussed with [facility] and they will be able to see if he qualifies on return and be able to provide (10) Hypothyroid: * Chronic. Stable. * TSH wnl * Continue home levothyroxine 137mcg PO daily (11) Dyslipidemia: * Chronic. Stable * Continue Crestor (12) COPD (chronic obstructive pulmonary disease): * in light of weight loss obtain cxr, r/o masses etc * cont inhalers * Add duonebs prn for wheezing (13) Hypokalemia: * K 3.4 -- ordered 20meq PO * Repeat in AM (14) DVT prophylaxis: * Continue home coumadin 5mg daily, uncertain as to why he is on this medication * INR 3.5 -- given 2.5mg vit K, will given additional 5mg for repeat for INR 3.7 this evening * Repeat INR in AM KUB ordered evening 07/05 for increased abd distention and pain reported to supervising phsyician Dispo: d/c in AM if INR therapeutic and KUB without abnormality Admission and Anticipated Discharge Date Admission Date: July 01, 2019 Supervising Physician Co-Signing Physician Notes Attending Attestation and progress note: Pt seen/examined, chart reviewed, care plan d/w NAY Coughlin. I agree w/ the rondon components of her documentation. During my visit patient was quite talkative - much more so than my visit w/ him on Tuesday. He complained, however, of left-sided abdominal pain. I asked him why he was on coumadin - could not tell me exactly but he thought for "blood clots in his legs". He developed these "Before going in nursing home" (10+ years ago?). He worked as a live out nanny for [email or web address] and blames the clots on his work. He continues with mild hematuria. Guards report confusion. VSS, no fever gen - mild "quiet" tachypnea but no distress mouth - MMM neck - no JVD heart - RRR, s1 s2 lungs - exp wheezes b/l, tachypnea abd - distended, BS+, but nontender ext - no edema labs reviewed A/P: 1. UTI/prostatitis - would use keflex x 1 month rather than bactrim as bactrim as significant interaction with coumadin and great risk of potentiation - more so than keflex 2. hematuria - 2nd to #1 in setting of supratherapeutic INR; agree w small dose vitamin K 3. chronic coumadin use - I asked Ms Coughlin to contact medical affairs director at nursing home to determine reason for coumadin. If clots were truly 10+ years ago - need for ongoing anticoagulation?? 4. abdominal distension with tenderness - KUB x-ray; r/o fecal impaction; r/o ileus; etc 5. thoracic compression Fx 6. seizure disorder - keppra 7. metabolic encephalopathy - 2nd #1 - with baseline cognitive dysfunction?? no discharge today Mikel Marie MD Subjective Patient states he feels much better today. Does have some increased hematuria this morning since starting bactrim. Will switch to keflex. Patient states he is not having any chest pain, fever, chills, shortness of breath, abdominal pain, epistaxis, or blood in his stool. Patient much more alert and oriented today. Per guards in room, patient much less altered overnight, mentation improved this morning. Review of Systems Review of Systems: All systems reviewed & are unremarkable except as noted in HPI & below Physical Exam Physical Exam: Constitutional WD/WN, vitals as above, laying in bed no acute distress Eyes + anicteric sclerae and PERRL Neck trachea midline, no thyromegaly Respiratory normal respiratory effort; no respiratory distress and no labored breathing. 92% SpO2 on RA during examination Auscultation: + diminished lung sounds (bases bilaterally); expiratory wheezes, no crackles Cardiovascular RRR, no murmur, no edema Gastrointestinal (Abdomen) normal bowel sounds, soft, nontender, no hepatosplenomegaly tympanic to percussion, distended Urinal with gross hematuria with several clots Musculoskeletal no cyanosis or clubbing, extremities motor strength 5/5 Minimally tender to palpation over thoracic vertebral bodies as well as lower ribcage Skin no rashes, warm and dry Neurologic PERRL, EOMI, accommodation nl, no face palsy, no dysarthria Psychiatric Orientation: alert and oriented x 2 Lymphatic no cervical or axillary lymphadenopathy Results & Data Results & Data ([facility]) Vital Signs (Past 12 Hours) Vital Signs Temp Pulse Resp BP Pulse Ox 07/06/19 09:24 87 18 92 07/06/19 08:14 36.5 C 72 18 177/74 H 92 Laboratory Results 07/06/19 07/06/19 07/06/19 Range/Units 15:29 08:55 07:11 WBC (4.8-10.8) K/uL RBC (4.7-6.1) M/uL Hgb (14.0-18.0) g/dL Hct (42-52) % MCV (80-100) fL MCH (25-34) pg MCHC (32-36) g/dL RDW Std Deviation (36.4-46.3) fL RDW Coeff of Merry (11.5-14.5) % Plt Count (130-400) K/uL MPV (7.4-10.4) fL Immature Gran % (Auto) % Neut % (Auto) % Lymph % (Auto) % [place] % (Auto) % Eos % (Auto) % Baso % (Auto) % Immature Gran # (Auto) (0.00-0.02) K/uL Neut # (Auto) (1.4-6.5) K/uL Lymph # (Auto) (1.2-3.4) K/uL [place] # (Auto) (0.11-0.59) K/uL Eos # (Auto) (0-0.5) K/uL Baso # (Auto) (0-0.2) K/uL PT 36.6 H 34.6 H (9.0-12.0) Seconds INR 3.7 H 3.5 H (0.9-1.1) Sodium 136 (136-145) mmol/L Potassium 3.4 L (3.5-5.1) mmol/L Chloride 102 (98-107) mmol/L Carbon Dioxide 25 (21-32) mmol/L Anion Gap 9.0 (3-11) BUN 13 (7-18) mg/dl Creatinine 0.69 (0.6-1.4) mg/dl Est Cr Clr Drug Dosing 102.7 ml/min Est GFR ( Amer) 109.9 Est GFR (Non-Af Amer) 94.8 BUN/Creatinine Ratio 19.0 (10-20) Glucose 96 (70-99) mg/dl Calcium 8.6 (8.5-10.1) mg/dl Magnesium 2.5 H (1.8-2.4) mg/dl Total Bilirubin 0.5 (0.2-1) mg/dl AST 37 (15-37) U/L ALT 32 (12-78) U/L Alkaline Phosphatase 49 (45-117) U/L Total Protein 6.7 (6.4-8.2) gm/dl Albumin 2.9 L (3.4-5.0) gm/dl Globulin 3.8 (2.5-4.0) gm/dl Albumin/Globulin Ratio 0.8 L (0.9-2) 07/06/19 Range/Units 07:11 WBC 7.58 (4.8-10.8) K/uL RBC 3.66 L (4.7-6.1) M/uL Hgb 10.7 L (14.0-18.0) g/dL Hct 30.9 L (42-52) % MCV 84.4 (80-100) fL MCH 29.2 (25-34) pg MCHC 34.6 (32-36) g/dL RDW Std Deviation 46.8 H (36.4-46.3) fL RDW Coeff of Merry 15.0 H (11.5-14.5) % Plt Count 163 (130-400) K/uL MPV 9.4 (7.4-10.4) fL Immature Gran % (Auto) 4.5 % Neut % (Auto) 69.1 % Lymph % (Auto) 12.0 % [place] % (Auto) 12.1 % Eos % (Auto) 1.8 % Baso % (Auto) 0.5 % Immature Gran # (Auto) 0.34 H (0.00-0.02) K/uL Neut # (Auto) 5.23 (1.4-6.5) K/uL Lymph # (Auto) 0.91 L (1.2-3.4) K/uL [place] # (Auto) 0.92 H (0.11-0.59) K/uL Eos # (Auto) 0.14 (0-0.5) K/uL Baso # (Auto) 0.04 (0-0.2) K/uL PT (9.0-12.0) Seconds INR (0.9-1.1) Sodium (136-145) mmol/L Potassium (3.5-5.1) mmol/L Chloride (98-107) mmol/L Carbon Dioxide (21-32) mmol/L Anion Gap (3-11) BUN (7-18) mg/dl Creatinine (0.6-1.4) mg/dl Est Cr Clr Drug Dosing ml/min Est GFR ( Amer) Est GFR (Non-Af Amer) BUN/Creatinine Ratio (10-20) Glucose (70-99) mg/dl Calcium (8.5-10.1) mg/dl Magnesium (1.8-2.4) mg/dl Total Bilirubin (0.2-1) mg/dl AST (15-37) U/L ALT (12-78) U/L Alkaline Phosphatase (45-117) U/L Total Protein (6.4-8.2) gm/dl Albumin (3.4-5.0) gm/dl Globulin (2.5-4.0) gm/dl Albumin/Globulin Ratio (0.9-2) PG Care Time/CCT Total # of Minutes Spent Total Time Spent with Patient: Total time spent is greater than 50% in coordination of care (as documented) at patient's floor/unit and/or counseling patient: Coding Level of Care Code 24088 Subseq Hosp Care Lvl 3 Diagnoses Sepsis A41.9 Sepsis acute organ dysfunction status: unspecified Sepsis type: sepsis due to unspecified organism Hematuria R31.29 Hematuria type: other microscopic Seizure R56.9 Compression fracture Hypertension I10 Hypertension type: essential hypertension UTI (urinary tract infection) N30.01 Hematuria presence: with hematuria Urinary tract infection type: acute cystitis Acute prostatitis N41.0 BPH loc w urin obs/LUTS N40.1 Hypoxia R09.02 Hypothyroid E03.9 Hypothyroidism type: unspecified Dyslipidemia E78.5 COPD (chronic obstructive pulmonary disease) J44.9 COPD type: unspecified COPD Hypokalemia E87.6 DVT prophylaxis Z29.9 (1) UTI (urinary tract infection) Hematuria presence: with hematuria Urinary tract infection type: acute cystitis Qualified Code(s): N30.01 - Acute cystitis with hematuria (2) Hematuria Hematuria type: other microscopic Qualified Code(s): R31.29 - Other microscopic hematuria (3) Hypothyroid Hypothyroidism type: unspecified Qualified Code(s): E03.9 - Hypothyroidism, unspecified (4) Sepsis Sepsis acute organ dysfunction status: unspecified Sepsis type: sepsis due to unspecified organism Qualified Code(s): A41.9 - Sepsis, unspecified organism (5) COPD (chronic obstructive pulmonary disease) COPD type: unspecified COPD Qualified Code(s): J44.9 - Chronic obstructive pulmonary disease, unspecified (6) Hypertension Hypertension type: essential hypertension Qualified Code(s): I10 - Essential (primary) hypertension
--- NOTE | 2019-07-06 16:54 | XRay Report ---
KUB HISTORY: Acute generalized abdominal distention abd distention COMPARISON: Chest radiographs 07/03/2019, CT abdomen and pelvis 07/01/2019 FINDINGS: Moderate fecal retention of the right. The stomach is mildly distended with air. Distended bowel within the abdominal left upper quadrant is suggestive of hepatic flexure. There are a few prom inent air-filled loops of small bowel within the abdominal right lower quadrant. No renal calculi. N o ureteral calculi. No pneumoperitoneum or pneumatosis. Degenerative changes of the spine, pelvis and hips. Upper lumbar compression deformities.. IMPRESSION: 1. Nonobstructive bowel gas pattern without pneumoperitoneum. 2. Mild gaseous distention involves both large and small bowel loops which may reflect a mild ileus. 3. Moderate fecal retention of the right hemicolon. ACT 112: Negative or not required by law. The above report was generated using voice recognition software. It may contain grammatical, syntax o r spelling errors. Electronically signed by: Mick Tom M.D. 07/06/2019 4:53 PM
[2019-07-06] MEDS ORDERED: DOCUSATE SODIUM 100 MG CAP PO STA (18:10)
[2019-07-06] MEDS: TAMSULOSIN HCL 0.4 MG CAP PO SCH (20:15)
[2019-07-06] MEDS: ROSUVASTATIN CALCIUM 20 MG TAB PO SCH (20:15)
[2019-07-06] MEDS: cephALEXin 500 MG CAP PO SCH (20:16)
[2019-07-06] MEDS: POLYETHYLENE (MIRALAX) 17 GM PACK PO SCH (20:21)
[2019-07-07] MEDS: LEVOTHYROXINE SODIUM 137 MCG TABLET PO SCH (05:18)
[2019-07-07 05:46] LABS: Hematocrit (blood only) 34.5 % (42-52); Hemoglobin 11.5 g/dL (14.0-18.0); Mean Corpuscular Hemoglobin 28.5 pg (25-34); Mean Corpuscular Hgb Conc 33.3 g/dL (32-36); Mean Corpuscular Volume 85.6 fL (80-100); Mean Platelet Volume 9.9 fL (7.4-10.4); Platelet Count 233 K/uL (130-400); RDW Coefficient of Variation 15.3 % (11.5-14.5); RDW Standard Deviation 48.3 fL (36.4-46.3); Red Blood Count 4.03 M/uL (4.7-6.1); White Blood Count 10.02 K/uL (4.8-10.8)
[2019-07-07 05:58] LABS: INR 1.3 (0.9-1.1); Prothrombin Time 13.8 Seconds (9.0-12.0)
[2019-07-07 06:17] LABS: Albumin Level 2.8 gm/dl (3.4-5.0); BUN Creatinine Ratio 18.4 (10-20); Calcium 8.8 mg/dl (8.5-10.1); Creatinine Clr Calc Pharmacy 63.3 ml/min; Est GFR (African American) 75.7; Est GFR (Non-African American) 65.3; Potassium 3.5 mmol/L (3.5-5.1)
[2019-07-07 06:20] LABS: Albumin Globulin Ratio 0.8 (0.9-2); Bilirubin,Total 0.5 mg/dl (0.2-1); Globulin 3.7 gm/dl (2.5-4.0); Total Protein 6.5 gm/dl (6.4-8.2)
[2019-07-07] MEDS: FLUTICASONE FUROATE 100MCG 14 PUFFS/INHALER INH SCH (09:10)
[2019-07-07] MEDS: FOLIC ACID 400 MCG TAB PO SCH (09:11)
[2019-07-07] MEDS: dilTIAZem HCL 30 MG TAB PO SCH (09:11)
[2019-07-07] MEDS: cephALEXin 500 MG CAP PO SCH (09:12)
[2019-07-07] MEDS: levETIRAcetam 500 MG TAB PO SCH (09:12)
[2019-07-07] MEDS: lisinopriL 5 MG TAB PO SCH (09:13)
[2019-07-07] MEDS: CHOLECALCIFEROL 1,000 UNITS 25 MCG TAB PO SCH (09:13)
[2019-07-07] MEDS: SERTRALINE HCL 50 MG TABLET PO SCH (09:14)
[2019-07-07] MEDS: POLYETHYLENE (MIRALAX) 17 GM PACK PO SCH (09:19)
--- NOTE | 2019-07-07 14:00 | Discharge Summary ---
Date of Service July 07, 2019 Admission HPI Per Admitting Provider Ted Irvin is a 74yo C male with history of HTN, HLP, COPD, Hypothyroidism and Neurocognitive disorder presenting from [facility] with complaint of hematuria x 1 day. He states that this AM around O4:00 he began urinating small amounts of dark red blood. Also with urinary urgency, frequency and dribbling. He reports difficulty starting his urinary stream today and needing to strain. Patient had blood work performed at the [facility] which showed a WBC=19.38, Hgb=12.8 and Hct=35.7. A straight cath was attempted and was unsuccessful, leading to increased bleeding as well. On arrival to the ER patient afebrile, HD stable. Bladder scan was performed which showed <50mL of urine. No Reyes or straight cath attempted. Patient continues to void frequent small amounts of blood. Additionally he complaints of some suprapubic discomfort, fevers and chills x 1 day. Admission Exam Per Admitting Provider Physical Exam: General: patient resting comfortably, NAD, non-toxic in appearance, AA&O to self and location Skin: warm, dry, intact, no rashes or lesions HEENT: NC/AT, PERRL, EOMI, anicteric sclera, conjunctiva without injection, external ear normal to inspection and nontender, nares patent, moist mucus membranes, dentition intact, no oropharyngeal lesions, neck supple, trachea midline, no LAD, no thyromegaly, no JVD Heart: +S1/S2, regular, no m/r/g Lungs: equal air entry bilaterally, no rales/rhonchi/wheezes Abd: +BS, soft, NT/ND, no masses/organomegaly/ascites Ext: warm, 2+ pulses in UE/LE bilaterally, no clubbing/cyanosis or edema Neuro: nonfocal, patient AA&O x 4, speech intact, no facial droop, moving all extremities on command with equal strength 5/5 Principal Diagnosis Sepsis Prostatitis Hematuria Seizure Discharge Exam General: awake, alert, no apparent distress Head: Normocephalic, atraumatic ENT: PERRL, EOMI, no pharyngeal exudate, mucous membranes moist Chest: Clear to auscultation, on room air, no adventitious breath sounds Cardiac: Regular rate and rhythm, no MRGs, no JVD, normal peripheral pulses, good capillary refill Abdominal: NABS x 4 quadrants, soft, + distended, nontender to palpation, no rebound, guarding or tenderness Extremities: Normal inspection, no peripheral edema or erythema, calfs nontender to palpation Psych: Normal mood and affect Neuro: AAO x 3, no gross motor deficits, speech is clear, no peripheral sensory deficits Discharge Data Allergies Allergy/AdvReac Type Severity Reaction Status Date / Time No Known Allergies Allergy Verified 07/01/19 19:55 Consultations 07/01/19 21:26 ED Decision to Admit Stat 07/01/19 23:36 Consult Urology Routine 07/03/19 11:14 Consult Neurology Routine Ordered Studies 07/01/19 20:01 CT abd pelvis wo con Stat CT head/brain wo con Stat 07/03/19 11:14 CT head/brain wo con Routine MR brain seizure wo con Routine 07/04/19 08:58 CT thoracic spine w con Routine Hospital Course (1) Sepsis: * 2nd to UTI and prostatitis given elevated PSA at 24.9 * E. Coli growth in urine, pansensitive --> had been on IV Rocephin, switched to Bactrim on 07/04 (day 4 of tx) but switch to keflex on discharge as patient on coumadin * Blood cx NGTD * BPs stable (2) Hematuria: * Likely due to combination of UTI/Prostatitis and traumatic catheterization at outside facility in the setting of chronic coumadin use and BPH. * H/h stable, slightly improved to 11.5/34.5 - pt denied hematuria on day of discharge * Given 2.5mg Vit K on 07/06, INR 1.3 on discharge - MD at [facility]al facility to follow INR * Resume coumadin, was held during admission. * Urology consult appreciated -- will need outpatient follow-up * Reported blood in stool evening of 07/03, although no recollection. Hemoccult ordered, although patient already now on iron supplementation. No hemorrhoids appreciated on EVELYN 07/02. No further reports from staff or c/o from pt. (3) Seizure: * lasting approx 2 minutes evening/overnight of 07/01. Per patient, has had several in past with most recent approximately 5 years ago. Not on any meds currently although patient believes he may have been on something in the past * Neurology consult -- appreciate recs * Seizure precautions, ativan prn * CT head/MRI Brain without age-related vascular changes, no acute findings * EEG without abnormality * Keppra loading dose on 07/02, continued at 500mg PO BID, to be continued at discharge. * No post-ictal confusion (4) Compression fracture: * See on CXR 07/02 * Continue pain --> dedicated CT Thoracic spine with mild-moderate acute compression fracture at T8 without associated retropulsion. Chronic compression deformities at T12, L1 unchanged from prior * Vitamin D level low at 12.2 --> started on oral supplementation * TLSO brace for support -- confirmed ok with [facility] by CM on 07/04 -- to be worn when out of bed * Could consider miacalcin nasal spray * Allow tylenol #3 prn pain (5) Hypertension: * Chronic * Ordered lisinopril 5mg PO daily, started on 07/03 * Increased home diltiazem to 30mg QID * Continue to monitor (6) UTI (urinary tract infection): * 2nd Ecoli as above, pansensitive * On day 6 of tx--> abx switched to keflex 500mg BID x 4 weeks for prostatitis (7) Acute prostatitis: * EVELYN with boggy prostate on 07/02, not exquisitely tender to palpation * PSA elevated at 24.9 * Continue Flomax * Will need follow up with Urology for further evaluation outpatient * Keflex as above (8) BPH loc w urin obs/LUTS: * Flomax * No urinary retention (9) Hypoxia: * Pox 84% evening 07/01 -- CXR with bibasilar atelectasis vs acute process * Repeat CXR 07/02 with improvement of R basilar opacity, which may have been resolved infiltrate vs atelectasis * Patient dropped to 88% evening of 07/02 -- denies hx TAISHA, although poor historian * Encouraged continued use of incentive spirometer * Overnight pulse ox unable to be completed due to patient compliance -- CM discussed with [facility] and they will be able to see if he qualifies on return and be able to provide (10) Hypothyroid: * Chronic. Stable. * TSH wnl * Continue home levothyroxine 137mcg PO daily (11) Dyslipidemia: * Chronic. Stable * Continue Crestor (12) COPD (chronic obstructive pulmonary disease): * in light of weight loss obtain cxr, r/o masses etc * cont inhalers * Add duonebs prn for wheezing (13) Hypokalemia: * Resolved, 3.5 on admission (14) DVT prophylaxis: * Continue home coumadin 5mg daily, uncertain as to why he is on this medication, INR to be followed by PCP/correctional facility on d/c Dispo: d/c in AM if INR therapeutic and KUB without abnormality (15) Abdominal distension: * - KUB completed yesterday with distension 1. Nonobstructive bowel gas pattern without pneumoperitoneum. 2. Mild gaseous distention involves both large and small bowel loops which may reflect a mild ileus. 3. Moderate fecal retention of the right hemicolon. * - Encouraged to get up and ambulate, pt denies abd pain on day of dc, he reports no cramping, diarrhea or constipation. Total Time Total Time Spent Total Time Spent (In Minutes): 36 min Discharge Plan Discharge Items Patient Disposition: [facility] Reason For Visit: HEMATURIA Discharge Diagnosis: Hematuria Goals: You have been hospitalized for an acute medical problem. During your stay at [facility], we have made an effort to correct the problem that brought you to the hospital while keeping you as comfortable as possible. Medications were used to bring your condition under control and your discharge instructions will include directions for any medications you should take after leaving the hospital. Please make sure you see your Primary Care Provider as part of your follow up plan. Activity: Resume your previous activity Lifting: Gradually increase as tolerated Bathing: No limitations Exercise/Sports: Gradually increase as tolerated Weightbearing: Full weightbearing Non-emergency contact: Primary Care Provider Call non-emergency contact if: you have any medication questions and your symptoms worsen Follow-up/Referrals: Germán Earl DO [Physician[facility] - Diet: Heart Healthy Addtl Attending Provider Instructions: You have been hospitalized for blood in your urine. Your labs were monitored and your blood counts have remained stable. You were found to have bacteria, E.Coli, in your urine as well as an enlarged and inflamed prostate, termed prostatitis. You were started on Flomax to help ease urination, which will be continued at discharge. --> This requires treatment with a longer course of antibiotics than usual for a typical "urinary tract infection". You were treated with IV antibiotics and switched to oral antibiotics to continue for an additional 4 weeks. Due to your Coumadin, you were switched to Keflex 500mg by mouth TWICE daily so that your risk of increased bleeding is decreased. It is recommended that you have a repeat INR tomorrow on 07/07 to see if your Coumadin needs further adjusted while on this antibiotic. Once your course of antibiotics is completed, you should follow up with Urology as an outpatient for finalization of your work-up for hematuria and bladder assessment to further rule out any masses. While you were hospitalized you were found to have an episode of seizure like activity. Testing was performed and did not show any of this activity at that time, however you were started on Keppra 500mg by mouth twice daily, given your reported history of seizures in the past and per recommendations by Neurology. With this, you have also been started on folic acid, which is to be continued daily. You were also found to have a fracture at T8 which is likely resultant from the seizure. A vitamin D level was drawn as well, which was low, and likely contributed to the fracture. --> You have been fitted for a TLSO brace for comfort, to be used while out of bed for support. --> You have also been started on Vitamin D to increase those levels and prevent further fractures. Your blood pressure was elevated during this admission, likely due to a number of factors. Adjustments to your blood pressure medications are as follows: --Diltiazem increased to 30mg by mouth FOUR TIMES DAILY NEW -- Lisinopril 5mg Please keep all follow up appointments. Please return to the emergency room if you have any increased bleeding, chest pain, shortness of breath, seizure activity, or for any other symptoms that are concerning for you. It has been a pleasure being apart of the care team providing for you while you have been in the hospital. Take care! Pending Studies at Discharge: No Stand-Alone Forms: My [facility] Skilled Items Patient informed of condition?: Yes Discharge Level of Care: Other Communicable Disease: No Discharge Prognosis: Improving Lines: None Urinary Catheter: No Medications and DC Order Prescriptions: New acetaminophen [Mapap (acetaminophen)] 325 mg Tablet 650 mg PO Q4H PRN (Reason: pain) 14 Days Qty: 30 RF: 0 levetiracetam [Keppra] 500 mg Tablet 500 mg PO BID 30 Days Qty: 60 RF: 0 folic acid 400 mcg Tablet 400 mcg PO QAM 30 Days Qty: 30 RF: 0 tamsulosin 0.4 mg Capsule 0.4 mg PO HS 30 Days Qty: 30 RF: 0 cephalexin 500 mg Capsule 500 mg PO BID Qty: 60 RF: 0 lisinopril [Zestril] 5 mg Tablet 5 mg PO QAM 30 Days Qty: 30 RF: 0 cholecalciferol (vitamin D3) 25 mcg (1,000 unit) Capsule 1,000 unit PO QAM 30 Days Qty: 30 RF: 0 diltiazem HCl 30 mg Tablet 30 mg PO QID PRN (Reason: hypertension) 30 Days Qty: 120 RF: 0 polyethylene glycol 3350 [Miralax] 17 gram Powder In Packet 17 g PO BID Qty: 60 RF: 0 Continued levothyroxine 137 mcg Tablet 137 mcg PO QAM RF: 0 warfarin 5 mg Tablet 5 mg PO QPM RF: 0 sertraline 25 mg Tablet 75 mg PO QAM RF: 0 rosuvastatin 40 mg Tablet 40 mg PO QPM RF: 0 levalbuterol tartrate [Xopenex HFA] 45 mcg/actuation Hfa Aerosol Inhaler 2 inh INHALATION QID RF: 0 Alvesco 160 mcg/actuation Hfa Aerosol Inhaler 1 puff INHALATION BID RF: 0 Discontinued sulfamethoxazole-trimethoprim [Bactrim DS] 800-160 mg Tablet 1 tab PO BID RF: 0 diltiazem HCl 30 mg Tablet 30 mg PO TID RF: 0 Discharge Orders: Discharge Order (Routine); Ordered 07/07/19 Ordered By: Yisel Hatfield Admission Data Admit Date/Time: 07/01/19 22:30 Attending Provider: Mathieu Diaz Admit Provider: Celina Yarbrough Primary Care Provider: Manuelito HIDALGO Other Providers: Celina Yarbrough ; Germán Earl ; Ortiz Chairez Other Interventions: Discharge Summary Assessment (RN) Last Done: 07/07/19 10:36 DC Date/Time DO NOT enter until pt leaves facility: 07/07/19 12:09 Coding Level of Care Code D/C Day Management >30 mins Diagnoses Sepsis A41.9 Sepsis type: sepsis due to unspecified organism Sepsis acute organ dysfunction status: unspecified Hematuria R31.29 Hematuria type: other microscopic Seizure R56.9 Compression fracture Hypertension I10 Hypertension type: essential hypertension UTI (urinary tract infection) N30.01 Urinary tract infection type: acute cystitis Hematuria presence: with hematuria Acute prostatitis N41.0 BPH loc w urin obs/LUTS N40.1 Hypoxia R09.02 Hypothyroid E03.9 Hypothyroidism type: unspecified Dyslipidemia E78.5 COPD (chronic obstructive pulmonary disease) J44.9 COPD type: unspecified COPD Hypokalemia E87.6 DVT prophylaxis Z29.9 Abdominal distension R14.0
== END 2019-07-07 12:09 | DRG 871 ==
LOC: MERGE 19:36 → ED 19:36 → SUATTDRO 22:30 → 3E 22:30
DX: R31.0 Gross hematuria; M48.54XA Collapsed vertebra, not elsewhere classified, thoracic region, initial encounter for fracture; Z79.890 Hormone replacement therapy; G93.41 Metabolic encephalopathy; N99.89 Other postprocedural complications and disorders of genitourinary system; R09.02 Hypoxemia; I10 Essential (primary) hypertension; S37.20XA Unspecified injury of bladder, initial encounter; R41.9 Unspecified symptoms and signs involving cognitive functions and awareness; E87.6 Hypokalemia; S37.30XA Unspecified injury of urethra, initial encounter; N32.0 Bladder-neck obstruction; K92.1 Melena; Z51.81 Encounter for therapeutic drug level monitoring; N39.0 Urinary tract infection, site not specified; Z87.891 Personal history of nicotine dependence; Z79.01 Long term (current) use of anticoagulants; J98.11 Atelectasis; E03.9 Hypothyroidism, unspecified; R14.0 Abdominal distension (gaseous); G40.909 Epilepsy, unspecified, not intractable, without status epilepticus; A41.51 Sepsis due to Escherichia coli [E. coli]; N40.1 Benign prostatic hyperplasia with lower urinary tract symptoms; E78.5 Hyperlipidemia, unspecified; Y92.149 Unspecified place in prison as the place of occurrence of the external cause; N41.0 Acute prostatitis; R33.8 Other retention of urine; Z79.899 Other long term (current) drug therapy; J44.9 Chronic obstructive pulmonary disease, unspecified; Y84.6 Urinary catheterization as the cause of abnormal reaction of the patient, or of later complication, without mention of misadventure at the time of the procedure

== ENCOUNTER 2022-07-04 09:25 | Inpatient (IN) ==
[2022-07-04] MEDS ORDERED: SODIUM CHLORIDE 0.9% 500 ML IV STA (09:37)
[2022-07-04] MEDS ORDERED: LEVALBUTEROL 1.25 MG/3 ML NEB NEB STA (09:37)
[2022-07-04] MEDS ORDERED: dilTIAZem HCl 5 MG/ML 5 ML VIAL IV STA (09:37)
[2022-07-04] MEDS ORDERED: dilTIAZem HCl 5 MG/ML 5 ML VIAL IV ONE (09:38)
[2022-07-04] MEDS ORDERED: cefTRIAXone SODIUM 2,000 MG/70 ML BAG IV STA (09:40)
[2022-07-04] MEDS ORDERED: methylPREDNISolone 125 MG/2 ML VIAL IV STA (09:43)
--- NOTE | 2022-07-04 09:43 | Emergency Department Note ---
Impression & Plan Acute hypoxemic respiratory failure, Acute confusion, Human metapneumovirus (hMPV) pneumonia, COPD (chronic obstructive pulmonary disease), Atrial fibrillation with rapid ventricular response ED Provider Note NAME: WILNER [id number] TRESSA AGE: 77 SEX: M : 1945 ARRIVES VIA: Ambulance INFORMANT: Patient, ED PROVIDER(S): Kadeem Morris MD CHIEF COMPLAINT: Shortness of breath MEDICAL DECISION MAKING: Patient presents due to concern for shortness of breath. History somewhat limited as the patient does appear to be acutely confused. The patient was noted to be cyanotic per EMS. I did receive a command call and the patient did receive adenosine appear to show an underlying A-fib. Patient did have an IV established blood work was obtained. EKG did show A-fib and the patient was ordered a fluid bolus in addition to blood cultures, urinalysis CT of the head INR patient was ordered a breathing treatment as well as steroids and empiric Rocephin. The patient did eventually converted after IV fluids and Cardizem bolus. The patient has a hemoglobin of 11 with mild anemia which is chronic and stable. Platelet count is unremarkable. I did reevaluate the patient the patient does seem improved after breathing treatments and rate control. The patient seems more coherent. Patient's white blood cell count is unremarkable with chronic and stable anemia hemoglobin of 11. Platelet count is unremarkable INR suprat herapeutic at 5.5. The patient's gas is unremarkable. Patient's kidney function is unremarkable but with prerenal azotemia. Mild hypocalcemia noted 8. Lactate is normal. Troponin is slightly elevated at 32. Believe this is likely demand related procalcitonin is elevated at 1. TSH normal. Bio fire with human metapneumovirus. CT head negative. Chest x-ray is negative. Given the patient's A-fib with RVR positive troponin and oxygen requirement I did speak the on-call hospital service Dr. Vázquez and the patient was admitted to the medicine service. Critical Care: I have personally spent 77 minutes of critical care time in direct management of this patient. This includes bedside care, interpretation of diagnostic studies, and testing, discussion with consultants, patient, and family members, and other require inpatient management activities. This 77 minutes is in excess of all [facility] billable procedures. Prior /Outside records reviewed: I did review discharge summary from July 16, 2019. Patient has known history of hypertension HLP COPD hypothyroidism neurocognitive disorder patient was admitted that time for sepsis secondary to UTI and prostatitis patient reportedl y is on diltiazem. Differential diagnosis: Reactive airway disease, pneumonia, pneumothorax, COPD, CHF, infections, cardiac ischemia, pulmonary embolism, musculoskeletal, gastrointestinal, as well as other pathologies. Diagnostics, as interpreted by me: ECG: none Cardiac monitoring: An order was placed for continuous cardiac monitoring. The monitor shows a rate of with rhythm. Patient was placed on pulse oximetry Medical decision rules: none Imaging studies: See below I informally reviewed the patient's CT of the head which showed no obvious ICH. HPI: Patient presents due to concern for shortness of breath. The patient reportedly presented as an inmate at [facility] and noted that the patient slips were blue in the skin, or was pale and disoriented. At that time the pa tient's pulse was noted to be 163 blood pressure 60/40 and a pulse ox of 87. Patient had been placed on nonrebreather and was given adenosine in route thought to be having underlying A-fib. Per review of the patient's medical history does state that the patient is on long-term use of anticoagulant but does not relate any specific arrhythmia. Patient does have a known history of hypertension and COPD per review. Patient has had occasional cough. Patient denies any abdominal pain nausea vomiting. Patient is a smoker and has no history of COPD PAST MEDICAL HISTORY: See Below PAST SURGICAL HISTORY: See Below SOCIAL HISTORY: See Below HOME MEDICATIONS: See Below ALLERGIES: See Below VITALS: See Below PHYSICAL EXAMINATION: GENERAL: Moderate distress, nasal cannula in place, pale in appearance EYE EXAM: Normal conjunctiva. PERRL, no anisocoria and EOM's grossly intact w/o pain. NECK: Supple, no nuchal rigidity, no adenopathy, non-tender. No signs of meningismus. FROM of the neck with good chin to chest and neck extension. No stridor. LUNGS: Decreased breath sounds throughout. Normal chest wall mechanics. HEART: Tachycardic and irregular irregular, no MRG. ABDOMEN: Abdomen soft, non-tender, no masses, no rebound or guarding. BACK: No CVA TTP. SKIN: No rashes and no bruising. UPPER EXTREMITIES: Upper extremities are grossly normal. LOWER EXTREMITIES: Grossly normal, no edema. Negative Homans' sign bilaterally NEURO EXAM: A&O x3, cranial nerves II-XII grossly intact, normal speech, moves all 4 extremities. Past Med/Surg History Medical History (Updated 07/06/22 @ 13:38 by Kadeem Morris MD) COPD (chronic obstructive pulmonary disease) Dyslipidemia Hypertension Hypothyroid Neurocognitive disorder Family History Sister Seizures Other No significant family history Social History Smoking Status: Current every day smoker Tobacco Type: E-cigarettes / Vaping Cigarettes Per Day: 1; Hx Alcohol Use: No Hx Substance Use: No Preferred Language: Arabic Communication Ability: Unable [employer] Required: No Beliefs That Will Affect Care: None Current Living Situation: Other Current Living Situation Comment: [facility] Other Information That Helps Us Care for You: No Feels Safe at Home: Yes Safety Concerns: Feels Safe At This Time Assistive Devices: None Allergies Allergies Allergy/AdvReac Type Severity Reaction Status Date / Time No Known Allergies Allergy Verified 07/01/19 19:55 Home Meds Home Medications Medication Instructions Recorded Confirmed levalbuterol tartrate 45 2 inh inhalation QID 07/01/19 07/04/22 mcg/actuation aerosol inhaler (Xopenex HFA) rosuvastatin 40 mg tablet 40 mg PO QPM 07/01/19 07/04/22 sertraline 25 mg tablet 75 mg PO QAM 07/01/19 07/04/22 levetiracetam 500 mg tablet 500 mg PO BID 07/04/22 07/04/22 (Keppra) levothyroxine 150 mcg tablet 150 mcg PO DAILY 07/04/22 07/04/22 (Synthroid) tamsulosin 0.4 mg capsule (Flomax) 0.4 mg PO DAILY 07/04/22 07/04/22 umeclidinium 62.5 mcg/actuation 1 inh inhalation DAILY 07/04/22 07/04/22 blister powder for inhalation (Incruse Ellipta) warfarin 2.5 mg tablet 2.5 mg PO DAILY 07/04/22 07/04/22 warfarin 3 mg tablet 3 mg PO DAILY 07/04/22 07/04/22 Previous Rx's Medication Instructions Recorded polyethylene glycol 3350 17 gram 17 g PO BID #60 ea 07/07/19 oral powder packet (Miralax) Results & Data (ED) Vital Signs Vital Signs - 24 hr 07/04/22 09:32 07/04/22 09:30 07/04/22 09:30 Temperature 36.8 C Temperature Source Oral Pulse Rate 165 H 165 H Pulse Rate from SpO2 Sensor Respiratory Rate 22 Respiratory Effort / Characteristics Non-Labored Spontaneous Non-Labored Spontaneous Respiratory Depth Normal Normal Respiratory Pattern Regular Blood Pressure 103/73 Blood Pressure Mean 83 Blood Pressure Position Lying Pulse Oximetry 92 Oxygen Delivery Method Room Air Room Air Oxygen Flow Rate Sepsis Recent Fever Within 48 Hours No Sepsis New/Unexplained Change in Mental Status N/A Sepsis Action Taken by Nursing No Action Required Oxygen Flow Rate - Titration Pulse Oximetry Post Tiitration 07/04/22 10:12 07/04/22 10:51 07/04/22 09:31 Temperature Temperature Source Pulse Rate 94 H 165 H Pulse Rate from SpO2 Sensor 133 H Respiratory Rate 38 H Respiratory Effort / Characteristics Respiratory Depth Respiratory Pattern Blood Pressure Blood Pressure Mean Blood Pressure Position Pulse Oximetry 86 L 89 L Oxygen Delivery Method Nasal Cannula Oxymask Room Air Oxygen Flow Rate 4 Sepsis Recent Fever Within 48 Hours Sepsis New/Unexplained Change in Mental Status Sepsis Action Taken by Nursing Oxygen Flow Rate - Titration 6 Pulse Oximetry Post Tiitration 95 07/04/22 09:45 07/04/22 09:46 07/04/22 09:46 Temperature Temperature Source Pulse Rate 166 H 160 H Pulse Rate from SpO2 Sensor 128 H 127 H Respiratory Rate 31 H 30 H Respiratory Effort / Characteristics Respiratory Depth Respiratory Pattern Blood Pressure 104/58 L Blood Pressure Mean 73 Blood Pressure Position Pulse Oximetry 92 92 Oxygen Delivery Method Room Air Room Air Oxygen Flow Rate Sepsis Recent Fever Within 48 Hours Sepsis New/Unexplained Change in Mental Status Sepsis Action Taken by Nursing Oxygen Flow Rate - Titration Pulse Oximetry Post Tiitration 07/04/22 10:00 07/04/22 10:01 07/04/22 10:01 Temperature Temperature Source Pulse Rate 163 H 157 H Pulse Rate from SpO2 Sensor 138 H 169 H Respiratory Rate 27 H 27 H Respiratory Effort / Characteristics Respiratory Depth Respiratory Pattern Blood Pressure 105/65 Blood Pressure Mean 78 Blood Pressure Position Pulse Oximetry 93 95 Oxygen Delivery Method Room Air Nebulizer Oxygen Flow Rate Sepsis Recent Fever Within 48 Hours Sepsis New/Unexplained Change in Mental Status Sepsis Action Taken by Nursing Oxygen Flow Rate - Titration Pulse Oximetry Post Tiitration 07/04/22 10:15 07/04/22 10:15 07/04/22 10:30 Temperature Temperature Source Pulse Rate 82 Pulse Rate from SpO2 Sensor 84 Respiratory Rate 24 Respiratory Effort / Characteristics Respiratory Depth Respiratory Pattern Blood Pressure 127/66 123/65 Blood Pressure Mean 86 84 Blood Pressure Position Pulse Oximetry 94 Oxygen Delivery Method Nebulizer Oxygen Flow Rate Sepsis Recent Fever Within 48 Hours Sepsis New/Unexplained Change in Mental Status Sepsis Action Taken by Nursing Oxygen Flow Rate - Titration Pulse Oximetry Post Tiitration 07/04/22 10:30 07/04/22 10:45 07/04/22 11:00 Temperature Temperature Source Pulse Rate 87 81 Pulse Rate from SpO2 Sensor 82 Respiratory Rate 26 H 20 Respiratory Effort / Characteristics Respiratory Depth Respiratory Pattern Blood Pressure 107/69 Blood Pressure Mean 81 Blood Pressure Position Pulse Oximetry 86 L 95 Oxygen Delivery Method Nasal Cannula Oxymask Oxygen Flow Rate 4 6 Sepsis Recent Fever Within 48 Hours Sepsis New/Unexplained Change in Mental Status Sepsis Action Taken by Nursing Oxygen Flow Rate - Titration Pulse Oximetry Post Tiitration 07/04/22 11:00 07/04/22 11:30 07/04/22 12:00 Temperature Temperature Source Pulse Rate 89 76 77 Pulse Rate from SpO2 Sensor 82 77 73 Respiratory Rate 28 H 27 H 23 Respiratory Effort / Characteristics Respiratory Depth Respiratory Pattern Blood Pressure Blood Pressure Mean Blood Pressure Position Pulse Oximetry 95 94 94 Oxygen Delivery Method Oxymask Oxymask Oxymask Oxygen Flow Rate 6 6 6 Sepsis Recent Fever Within 48 Hours Sepsis New/Unexplained Change in Mental Status Sepsis Action Taken by Nursing Oxygen Flow Rate - Titration Pulse Oximetry Post Tiitration 07/04/22 12:30 Temperature Temperature Source Pulse Rate 72 Pulse Rate from SpO2 Sensor 73 Respiratory Rate 23 Respiratory Effort / Characteristics Respiratory Depth Respiratory Pattern Blood Pressure Blood Pressure Mean Blood Pressure Position Pulse Oximetry 95 Oxygen Delivery Method Oxymask Oxygen Flow Rate 6 Sepsis Recent Fever Within 48 Hours Sepsis New/Unexplained Change in Mental Status Sepsis Action Taken by Nursing Oxygen Flow Rate - Titration Pulse Oximetry Post Tiitration Home Medications Current Medication List: was personally reviewed by me Laboratory Data Attestation: I reviewed the patient's lab results. 07/04/22 09:38 07/04/22 09:38 Lab Results 07/04/22 07/04/22 07/04/22 Range/Units 09:37 09:37 09:38 WBC 10.42 (4.8-10.8) K/ul RBC 3.80 L (4.70-6.10) M/uL Hgb 11.1 L (14.0-18.0) g/dl Hct 33.0 L (42.0-52.0) % MCV 86.8 (80.0-100.0) fL MCH 29.2 (25.0-34.0) pg MCHC 33.6 (32.0-36.0) g/dL RDW Std Deviation 49.5 H (36.4-46.3) fL RDW Coeff of Merry 15.6 H (11.5-14.5) % Plt Count 205 (130-400) K/uL MPV 10.2 (9.4-12.4) fL Immature Gran % (Auto) 0.5 % Neut % (Auto) 70.6 % Lymph % (Auto) 17.5 % [place] % (Auto) 11.1 % Eos % (Auto) 0.1 % Baso % (Auto) 0.2 % Neut # (Auto) 7.36 H (1.40-6.50) K/uL Lymph # (Auto) 1.82 (1.2-3.4) K/uL [place] # (Auto) 1.16 H (0.11-0.59) K/uL Eos # (Auto) 0.01 (0-0.50) K/uL Baso # (Auto) 0.02 (0-0.2) K/uL Immature Gran # (Auto) 0.05 (0.01-0.20) K/uL PT (9.0-12.0) Seconds INR (0.9-1.1) APTT (21.0-31.0) Seconds PTT Ratio VBG pH 7.36 (7.36-7.41) VBG pCO2 44 (38-50) mmHg VBG pO2 46 mmHg VBG HCO3 25 mmol/L VBG O2 Saturation 76.1 % VBG Base Excess -0.8 mEq/L Sodium (136-145) mmol/L Potassium (3.5-5.1) mmol/L Chloride (98-107) mmol/L Carbon Dioxide (21-32) mmol/L Anion Gap (3-11) BUN (6-23) mg/dl Creatinine (0.6-1.4) mg/dl Est Cr Clr Drug Dosing Est GFR ( Amer) ml/min Est GFR (Non-Af Amer) ml/min BUN/Creatinine Ratio (10-20) Glucose (70-99(Fasting)) mg/dl Lactate (0.4-2.0) mmol/L Calcium (8.6-10.3) mg/dl Magnesium (1.7-2.4) mg/dl Total Bilirubin (0.2-1.0) mg/dl AST (13-39) U/L ALT (7-52) U/L Alkaline Phosphatase (34-104) U/L Troponin I High Sens (0-20) pg/ml Total Protein (6.0-8.3) gm/dl Albumin (3.4-5.0) gm/dl Globulin (2.5-4.0) gm/dl Albumin/Globulin Ratio (0.9-2) Procalcitonin (0-0.5) ng/ml TSH (0.300-4.500) uIu/ml Adenovirus (PCR) Not Detected (NotDetected) B. pertussis DNA (PCR) Not Detected (NotDetected) B.parapertussis DNA PCR Not Detected (NotDetected) C. pneumoniae DNA (PCR) Not Detected (NotDetected) Coronavirus OC43 (PCR) Not Detected (NotDetected) Coronavirus HKU1 (PCR) Not Detected (NotDetected) Coronavirus 229E (PCR) Not Detected (NotDetected) SARS-CoV-2 (PCR) Not Detected (NotDetected) Coronavirus NL63 (PCR) Not Detected (NotDetected) Human Metapneumovir PCR DETECTED A* (NotDetected) Influenza Type A (PCR) Not Detected (NotDetected) Influenza Type B (PCR) Not Detected (NotDetected) M. pneumoniae (PCR) Not Detected (NotDetected) Parainfluenza 1 (PCR) Not Detected (NotDetected) Parainfluenza 2 (PCR) Not Detected (NotDetected) Parainfluenza 3 (PCR) Not Detected (NotDetected) Parainfluenza 4 (PCR) Not Detected (NotDetected) RSV (PCR) Not Detected (NotDetected) Entero/Rhino (PCR) Not Detected (NotDetected) 07/04/22 07/04/22 07/04/22 Range/Units 09:38 09:38 09:38 WBC (4.8-10.8) K/ul RBC (4.70-6.10) M/uL Hgb (14.0-18.0) g/dl Hct (42.0-52.0) % MCV (80.0-100.0) fL MCH (25.0-34.0) pg MCHC (32.0-36.0) g/dL RDW Std Deviation (36.4-46.3) fL RDW Coeff of Merry (11.5-14.5) % Plt Count (130-400) K/uL MPV (9.4-12.4) fL Immature Gran % (Auto) % Neut % (Auto) % Lymph % (Auto) % [place] % (Auto) % Eos % (Auto) % Baso % (Auto) % Neut # (Auto) (1.40-6.50) K/uL Lymph # (Auto) (1.2-3.4) K/uL [place] # (Auto) (0.11-0.59) K/uL Eos # (Auto) (0-0.50) K/uL Baso # (Auto) (0-0.2) K/uL Immature Gran # (Auto) (0.01-0.20) K/uL PT 54.2 H (9.0-12.0) Seconds INR 5.5 H (0.9-1.1) APTT 62.4 H* (21.0-31.0) Seconds PTT Ratio 2.2 VBG pH (7.36-7.41) VBG pCO2 (38-50) mmHg VBG pO2 mmHg VBG HCO3 mmol/L VBG O2 Saturation % VBG Base Excess mEq/L Sodium 140 (136-145) mmol/L Potassium 3.6 (3.5-5.1) mmol/L Chloride 108 H (98-107) mmol/L Carbon Dioxide 24 (21-32) mmol/L Anion Gap 8 (3-11) BUN 26 H (6-23) mg/dl Creatinine 1.24 (0.6-1.4) mg/dl Est Cr Clr Drug Dosing Not Reportable Est GFR ( Amer) 65.5 ml/min Est GFR (Non-Af Amer) 56.5 ml/min BUN/Creatinine Ratio 21.0 H (10-20) Glucose 105 H (70-99(Fasting)) mg/dl Lactate (0.4-2.0) mmol/L Calcium 8.0 L (8.6-10.3) mg/dl Magnesium 1.7 (1.7-2.4) mg/dl Total Bilirubin 0.9 (0.2-1.0) mg/dl AST 38 (13-39) U/L ALT 21 (7-52) U/L Alkaline Phosphatase 38 (34-104) U/L Troponin I High Sens 32.6 H (0-20) pg/ml Total Protein 6.4 (6.0-8.3) gm/dl Albumin 3.5 (3.4-5.0) gm/dl Globulin 2.9 (2.5-4.0) gm/dl Albumin/Globulin Ratio 1.2 (0.9-2) Procalcitonin (0-0.5) ng/ml TSH 0.931 (0.300-4.500) uIu/ml Adenovirus (PCR) (NotDetected) B. pertussis DNA (PCR) (NotDetected) B.parapertussis DNA PCR (NotDetected) C. pneumoniae DNA (PCR) (NotDetected) Coronavirus OC43 (PCR) (NotDetected) Coronavirus HKU1 (PCR) (NotDetected) Coronavirus 229E (PCR) (NotDetected) SARS-CoV-2 (PCR) (NotDetected) Coronavirus NL63 (PCR) (NotDetected) Human Metapneumovir PCR (NotDetected) Influenza Type A (PCR) (NotDetected) Influenza Type B (PCR) (NotDetected) M. pneumoniae (PCR) (NotDetected) Parainfluenza 1 (PCR) (NotDetected) Parainfluenza 2 (PCR) (NotDetected) Parainfluenza 3 (PCR) (NotDetected) Parainfluenza 4 (PCR) (NotDetected) RSV (PCR) (NotDetected) Entero/Rhino (PCR) (NotDetected) 07/04/22 07/04/22 Range/Units 09:38 09:57 WBC (4.8-10.8) K/ul RBC (4.70-6.10) M/uL Hgb (14.0-18.0) g/dl Hct (42.0-52.0) % MCV (80.0-100.0) fL MCH (25.0-34.0) pg MCHC (32.0-36.0) g/dL RDW Std Deviation (36.4-46.3) fL RDW Coeff of Merry (11.5-14.5) % Plt Count (130-400) K/uL MPV (9.4-12.4) fL Immature Gran % (Auto) % Neut % (Auto) % Lymph % (Auto) % [place] % (Auto) % Eos % (Auto) % Baso % (Auto) % Neut # (Auto) (1.40-6.50) K/uL Lymph # (Auto) (1.2-3.4) K/uL [place] # (Auto) (0.11-0.59) K/uL Eos # (Auto) (0-0.50) K/uL Baso # (Auto) (0-0.2) K/uL Immature Gran # (Auto) (0.01-0.20) K/uL PT (9.0-12.0) Seconds INR (0.9-1.1) APTT (21.0-31.0) Seconds PTT Ratio VBG pH (7.36-7.41) VBG pCO2 (38-50) mmHg VBG pO2 mmHg VBG HCO3 mmol/L VBG O2 Saturation % VBG Base Excess mEq/L Sodium (136-145) mmol/L Potassium (3.5-5.1) mmol/L Chloride (98-107) mmol/L Carbon Dioxide (21-32) mmol/L Anion Gap (3-11) BUN (6-23) mg/dl Creatinine (0.6-1.4) mg/dl Est Cr Clr Drug Dosing Est GFR ( Amer) ml/min Est GFR (Non-Af Amer) ml/min BUN/Creatinine Ratio (10-20) Glucose (70-99(Fasting)) mg/dl Lactate 1.2 (0.4-2.0) mmol/L Calcium (8.6-10.3) mg/dl Magnesium (1.7-2.4) mg/dl Total Bilirubin (0.2-1.0) mg/dl AST (13-39) U/L ALT (7-52) U/L Alkaline Phosphatase (34-104) U/L Troponin I High Sens (0-20) pg/ml Total Protein (6.0-8.3) gm/dl Albumin (3.4-5.0) gm/dl Globulin (2.5-4.0) gm/dl Albumin/Globulin Ratio (0.9-2) Procalcitonin 1.04 H (0-0.5) ng/ml TSH (0.300-4.500) uIu/ml Adenovirus (PCR) (NotDetected) B. pertussis DNA (PCR) (NotDetected) B.parapertussis DNA PCR (NotDetected) C. pneumoniae DNA (PCR) (NotDetected) Coronavirus OC43 (PCR) (NotDetected) Coronavirus HKU1 (PCR) (NotDetected) Coronavirus 229E (PCR) (NotDetected) SARS-CoV-2 (PCR) (NotDetected) Coronavirus NL63 (PCR) (NotDetected) Human Metapneumovir PCR (NotDetected) Influenza Type A (PCR) (NotDetected) Influenza Type B (PCR) (NotDetected) M. pneumoniae (PCR) (NotDetected) Parainfluenza 1 (PCR) (NotDetected) Parainfluenza 2 (PCR) (NotDetected) Parainfluenza 3 (PCR) (NotDetected) Parainfluenza 4 (PCR) (NotDetected) RSV (PCR) (NotDetected) Entero/Rhino (PCR) (NotDetected) Administered Medications Azithromycin (Azithromycin 250 Mg Tab) [address] [facility] Stop: 07/08/22 09:01 Last Admin: 07/06/22 08:57 Dose: 250 mg Documented By: Admin: 07/05/22 08:17 Dose: 250 mg Documented By: KGY Guaifenesin (Guaifenesin 600 Mg Tabcr) 1,200 mg PO BID KAREN Stop: 08/03/22 20:59 Last Admin: 07/06/22 08:56 Dose: 1,200 mg Documented By: Admin: 07/05/22 20:14 Dose: 1,200 mg Documented By: Admin: 07/05/22 08:14 Dose: 1,200 mg Documented By: Admin: 07/04/22 21:11 Dose: 1,200 mg Documented By: BETTY Methylprednisolone 40 mg/ (Syringe) 0.64 mls @ 1.5 mls/min IV BID KAREN Stop: 08/04/22 08:59 Last Admin: 07/06/22 08:58 Dose: 1.5 mls/min Documented By: Admin: 07/05/22 20:15 Dose: 1.5 mls/min Documented By: Admin: 07/05/22 08:16 Dose: 1.5 mls/min Documented By: ARELIS Levetiracetam (Levetiracetam 500 Mg Tab) 500 mg PO BID KAREN Stop: 08/03/22 20:59 Last Admin: 07/06/22 08:57 Dose: 500 mg Documented By: Admin: 07/05/22 20:14 Dose: 500 mg Documented By: Admin: 07/05/22 08:15 Dose: 500 mg Documented By: Admin: 07/04/22 21:12 Dose: 500 mg Documented By: BETTY Levothyroxine Sodium (Levothyroxine Sodium 150 Mcg Tablet) 150 mcg PO DAILYBB KAREN Stop: 08/04/22 06:29 Last Admin: 07/06/22 05:56 Dose: 150 mcg Documented By: Admin: 07/05/22 05:57 Dose: 150 mcg Documented By: KUSH Metoprolol Tartrate (Metoprolol Tartrate 25 Mg Tab) 12.5 mg PO BID KAREN Stop: 08/03/22 20:59 Last Admin: 07/06/22 08:56 Dose: 12.5 mg Documented By: Admin: 07/05/22 20:14 Dose: 12.5 mg Documented By: Admin: 07/05/22 08:15 Dose: 12.5 mg Documented By: Admin: 07/04/22 21:10 Dose: 12.5 mg Documented By: BETTY Rosuvastatin Calcium (Rosuvastatin Calcium 20 Mg Tab) 40 mg PO QPM KAREN Stop: 08/03/22 20:59 Last Admin: 07/05/22 20:14 Dose: 40 mg Documented By: Admin: 07/04/22 21:11 Dose: 40 mg Documented By: BETTY Sertraline HCl (Sertraline Hcl 50 Mg Tablet) 75 mg PO QAM KAREN Stop: 08/04/22 08:59 Last Admin: 07/06/22 08:55 Dose: 75 mg Documented By: Admin: 07/05/22 08:16 Dose: 75 mg Documented By: ARELIS Tamsulosin HCl (Tamsulosin Hcl 0.4 Mg Cap) 0.4 mg PO DAILY KAREN Stop: 08/04/22 08:59 Last Admin: 07/06/22 08:57 Dose: 0.4 mg Documented By: Admin: 07/05/22 08:17 Dose: 0.4 mg Documented By: ARELIS Umeclidinium [place] (Umeclidinium [place] 62.5mcg/Blister 7 Puffs/Inhaler) 1 puffs INH DAILY KAREN Stop: 08/04/22 08:59 Last Admin: 07/06/22 08:58 Dose: 1 puffs Documented By: Admin: 07/05/22 08:14 Dose: 1 puffs Documented By: ARELIS Discontinued Medications Azithromycin (Azithromycin 250 Mg Tab) 500 mg PO NOW ONE Stop: 07/04/22 16:36 Last Admin: 07/04/22 16:51 Dose: 500 mg Documented By: SCOTT Diltiazem HCl (Diltiazem Hcl 5 Mg/Ml 5 Ml Vial) Confirm Administered Dose 25 mg IV .STK-MED ONE Stop: 07/04/22 09:39 Last Admin: 07/04/22 09:50 Dose: Not Given Documented By: MAUREEN Diltiazem HCl (Diltiazem Hcl 5 Mg/Ml 5 Ml Vial) 20 mg IV NOW STA Stop: 07/04/22 09:38 Last Admin: 07/04/22 09:44 Dose: 20 mg Documented By: MAUREEN Co-signed By: CASSIDY Sodium Chloride (Nss) 500 mls @ 999 mls/hr IV .Q31M STA Stop: 07/04/22 10:07 Last Infusion: 07/04/22 10:00 Dose: 0 mls/hr Documented By: Admin: 07/04/22 09:30 Dose: 999 mls/hr Documented By: MAUREEN Ceftriaxone Sodium (Rocephin) 2,000 mg in 70 mls @ 140 mls/hr IV NOW STA Stop: 07/04/22 10:09 Last Infusion: 07/04/22 10:15 Dose: 0 mls/hr Documented By: Admin: 07/04/22 09:45 Dose: 140 mls/hr Documented By: MAUREEN Diltiazem HCl 125 mg/ Dextrose 125 mls @ 5 mls/hr IV .Q24H KAREN; Protocol Stop: 08/03/22 09:59 Last Admin: 07/04/22 16:37 Dose: Not Given Documented By: SCOTT Levalbuterol HCl (Levalbuterol 1.25 Mg/3 Ml Neb) 1.25 mg NEB NOW STA; Protocol Stop: 07/04/22 09:38 Last Admin: 07/04/22 09:45 Dose: 1.25 mg Documented By: MAUREEN Methylprednisolone (Methylprednisolone 125 Mg/2 Ml Vial) 60 mg IV NOW STA Stop: 07/04/22 09:44 Last Admin: 07/04/22 10:14 Dose: 60 mg Documented By: MAUREEN Miscellaneous (Stat Iv Infusion Titration Per Protocol) 1 each N/A NOW STA Stop: 07/04/22 09:56 Last Admin: 07/04/22 16:37 Dose: Not Given Documented By: SCOTT Imaging Data Radiologist's Impression: Chest X-Ray 07/04/22 09:37 XR chest 1V portable CLINICAL HISTORY: Dysrhythmia TECHNIQUE: Single frontal radiograph of the chest was obtained. Comparison: Comparison is made to chest radiograph 07/03/2019 FINDINGS: No lines and tubes are seen. The cardiomediastinal silhouette is normal. Peribronchial thickening is again seen in the right lower lung. This No evidence of pleural effusion or pneumothorax. IMPRESSION: No acute chest disease. ACT 112: Negative or not required by law. Electronically signed by: Wiley Villela M.D. 07/04/2022 9:[address] 07/04/22 09:37 CT head/brain wo con CLINICAL HISTORY: confusion Technique: Contiguous axial CT images of the head were acquired from the base of the skull to the vertex without intravenous contrast administration. Images were viewed in brain, subdural and bone windows. Automated dose lowering techniques and/or adjustment according to patient size were utilized for this exam. Comparison: Comparison is made to CT head 07/03/2019 Findings: Areas of decreased attenuation are present in the periventricular and subcortical white matter bilaterally consistent with small vessel ischemic disease. Generalized cerebral atrophy with commensurate enlargement of the ventricles, sulci, and cisterns is also present. There is no acute intracranial hemorrhage or evidence of acute territorial infarction. No shift of the midline structures, mass effect, or extra-axial abnormalities are shown. Atherosclerotic calcifications are present in the intracranial segments of the internal carotid arteries. Sinus disease is seen with thickening of the left maxillary sinus and opacification of a few ethmoid air cells. The orbits appear normal. There are no acute fractures of the calvaria or scalp swelling. Impression: No acute intracranial hemorrhage, no evidence of acute territorial infarction or other acute intracranial disease process. ACT 112: Negative or not required by law. Electronically signed by: Wiley Villela M.D. 07/04/2022 11:25 AM Discharge Plan Visit Data Chief Complaint: Cardiac Assessment ED Provider: Kadeem Morris Discharge Problem: Acute hypoxemic respiratory failure, Acute confusion, Human metapneumovirus (hMPV) pneumonia, COPD (chronic obstructive pulmonary disease), Atrial fibrillation with rapid ventricular response Patient Disposition: Admitted As Inpatient Discharge Instructions Interventions: ED Discharge Assessment Last Done: 07/04/22 15:44
--- NOTE | 2022-07-04 09:49 | XRay Report ---
XR chest 1V portable CLINICAL HISTORY: Dysrhythmia TECHNIQUE: Single frontal radiograph of the chest was obtained. Comparison: Comparison is made to chest radiograph 07/03/2019 FINDINGS: No lines and tubes are seen. The cardiomediastinal silhouette is normal. Peribronchial thickening is again seen in the right lower lung. This No evidence of pleural effusion or pneumothorax. IMPRESSION: No acute chest disease. ACT 112: Negative or not required by law. Electronically signed by: Wiley Villela M.D. 07/04/2022 9:48 AM
[2022-07-04] MEDS ORDERED: STAT IV Infusion **Titration per Protocol STA (09:55)
[2022-07-04 09:58] LABS: Basophils # (auto) 0.02 K/uL (0-0.2); Basophils % (auto) 0.2 %; Eosinophils # (auto) 0.01 K/uL (0-0.50); Eosinophils % (auto) 0.1 %; Hemoglobin 11.1 g/dl (14.0-18.0); Immature Granulocytes # (auto) 0.05 K/uL (0.01-0.20); Immature Granulocytes % (auto) 0.5 %; Lymphocytes # (auto) 1.82 K/uL (1.2-3.4); Lymphocytes % (auto) 17.5 %; Mean Corpuscular Hemoglobin 29.2 pg (25.0-34.0); Mean Corpuscular Hgb Conc 33.6 g/dL (32.0-36.0); Mean Corpuscular Volume 86.8 fL (80.0-100.0); Mean Platelet Volume 10.2 fL (9.4-12.4); Monocytes # (auto) 1.16 K/uL (0.11-0.59); Monocytes % (auto) 11.1 %; Neutrophils # (auto) 7.36 K/uL (1.40-6.50); Neutrophils % (auto) 70.6 %; Platelet Count 205 K/uL (130-400); RDW Coefficient of Variation 15.6 % (11.5-14.5); RDW Standard Deviation 49.5 fL (36.4-46.3); White Blood Count 10.42 K/ul (4.8-10.8)
[2022-07-04 09:59] LABS: Base Excess VBG -0.8 mEq/L; HCO3 VBG 25 mmol/L; Oxygen Saturation VBG 76.1 %; PCO2 VBG 44 mmHg (38-50); PO2 VBG 46 mmHg; pH VBG 7.36 (7.36-7.41)
[2022-07-04] MEDS ORDERED: dilTIAZem HCL 125 MG in DEXTROSE 5% 100 ML IV SCH (10:00)
[2022-07-04 10:12] LABS: Alanine Aminotransferase 21 U/L (7-52); Albumin Globulin Ratio 1.2 (0.9-2); Albumin Level 3.5 gm/dl (3.4-5.0); Alkaline Phosphatase 38 U/L (34-104); Anion Gap 8 (3-11); Aspartate Aminotransferase 38 U/L (13-39); Bilirubin,Total 0.9 mg/dl (0.2-1.0); Blood Urea Nitrogen 26 mg/dl (6-23); Carbon Dioxide 24 mmol/L (21-32); Chloride 108 mmol/L (98-107); Est GFR (African American) 65.5 ml/min; Est GFR (Non-African American) 56.5 ml/min; Globulin 2.9 gm/dl (2.5-4.0); Glucose 105 mg/dl (70-99(Fasting)); Magnesium 1.7 mg/dl (1.7-2.4); Potassium 3.6 mmol/L (3.5-5.1); Sodium 140 mmol/L (136-145); Total Protein 6.4 gm/dl (6.0-8.3)
[2022-07-04 10:19] LABS: Troponin I High Sensitivity 32.6 pg/ml (0-20)
[2022-07-04 10:36] LABS: INR 5.5 (0.9-1.1); Partial Thromboplastin Ratio 2.2; Prothrombin Time 54.2 Seconds (9.0-12.0)
[2022-07-04 10:44] LABS: Partial Thromboplastin Time 62.4 Seconds (21.0-31.0)
[2022-07-04 11:13] LABS: Adenovirus PCR Not Detected (NotDetected); Bordetella parapertussis PCR Not Detected (NotDetected); Bordetella pertussis PCR Not Detected (NotDetected); Chlamydia pneumoniae PCR Not Detected (NotDetected); Coronavirus 229E PCR Not Detected (NotDetected); Coronavirus CoV-2 (COVID19)PCR Not Detected (NotDetected); Coronavirus HKU1 PCR Not Detected (NotDetected); Coronavirus NL63 PCR Not Detected (NotDetected); Coronavirus OC43PCR Not Detected (NotDetected); Influenza A PCR Not Detected (NotDetected); Influenza B PCR Not Detected (NotDetected); Mycoplasma pneumoniae PCR Not Detected (NotDetected); Parainfluenza Virus 1 PCR Not Detected (NotDetected); Parainfluenza Virus 2 PCR Not Detected (NotDetected); Parainfluenza Virus 3 PCR Not Detected (NotDetected); Parainfluenza Virus 4 PCR Not Detected (NotDetected); Respiratory Syncytial VirusPCR Not Detected (NotDetected); Rhinovirus/Enterovirus PCR Not Detected (NotDetected)
[2022-07-04 11:23] LABS: Human Metapneumovirus PCR DETECTED (NotDetected)
--- NOTE | 2022-07-04 11:27 | CT Scan Report ---
CT head/brain wo con CLINICAL HISTORY: confusion Technique: Contiguous axial CT images of the head were acquired from the base of the skull to the mohan leah without intravenous contrast administration. Images were viewed in brain[facility] . Automated dose lowering techniques and/or adjustment according to patient size were utilized for this exam. Comparison: Comparison is made to CT head 07/03/2019 Findings: Areas of decreased attenuation are present in the periventricular and subcortical white matter bilate rally consistent with small vessel ischemic disease. Generalized cerebral atrophy with commensurate e nlargement of the ventricles, sulci, and cisterns is also present. There is no acute intracranial hem orrhage or evidence of acute territorial infarction. No shift of the midline structures, mass effect, or extra-axial abnormalities are shown. Atherosclerotic calcifications are present in the intracran ial segments of the internal carotid arteries. Sinus disease is seen with thickening of the left maxillary sinus and opacification of a few ethmoid air cells. The orbits appear normal. There are no acute fractures of the calvaria or scalp swelling. Impression: No acute intracranial hemorrhage, no evidence of acute territorial infarction or other acute intracra nial disease process. ACT 112: Negative or not required by law. Electronically signed by: Wiley Villela M.D. 07/04/2022 11:25 AM
--- NOTE | 2022-07-04 11:43 | History & Physical Report ---
Date of Service July 04, 2022 Assessment & Plan (1) Human metapneumovirus (hMPV) pneumonia: Plan: Acute hypoxic respiratory failure 2/2 human metapneumovirus +/- COPD exacerbation BioFire positive for human metapneumovirus No leukocytosis CXR clear Patient with diminished air movement and expiratory wheezing consistent with virally induced COPD exacerbation Procalcitonin elevated to 1.04, may be due to severe volume depletion with viral infection and no p.o. intake since evening/3 days ago Patient received Rocephin on admission to cover empirically for possible UTI given patient's history, UA remains pending. Patient denies urinary symptoms. We will treat for concurrent COPD exacerbation narrow antibiotics to azithromycin. If UA returns positive or blood cultures positive, will expand antibiotics as needed accordingly Titrate SPO2 to 89% (2) COPD (chronic obstructive pulmonary disease): Plan: Azithromycin as noted, oxygen to 89% as noted Continue Incruse daily Received methylprednisolone 60 mg in ER, will continue 40 mg twice daily and wean as able based on clinical progression for COPD exacerbation Xopenex as needed Guaifenesin added Flutter valve, incentive spirometer No PFTs available for review (3) Seizure: Plan: History of suspected seizure disorder, patient evaluated for seizure in 2020 in context of UTI. Neuroimaging/EEG without strong support of seizure, but patient was recommended to continue empiric treatment with Keppra twice daily for prophylaxis Keppra 500 mg twice daily continued No seizures while at [place] since [facility] We will add seizure precautions, if patient experiences seizure-like activity Ativan 2 mg IV every 5 minutes up to 3 doses and notify provider (4) Hypoxia: Plan: Due to COPD/human metapneumovirus as noted (5) Dyslipidemia: Plan: Continue statin (6) Hypertension: Plan: Normotensive following fluids and conversion to normal rhythm. No antihypertensives per [facility] (7) Hypothyroid: Plan: Continue Synthroid, increased as outpatient to 150 mcg daily TSH pending (8) Afib: Plan: Patient is anticoagulated on warfarin. Home dose is 5.5 mg every evening Supratherapeutic INR on admission with outpatient dose adjustment from 5.0 mg daily to 5.5 mg and poor p.o. intake x3 days Evening Coumadin held 07/04, INR trended Patient received fluids and diltiazem in ER converted to normal sinus rhythm. Suspect A-fib provoked by viral illness, if BP remains adequate add metoprolol succinate 25 mg daily for suppression 07/05 With elevated troponin of 32.6 on admission, suspect demand ischemia. Trended, no chest pain before arrival and patient denies chest pain at bedside assessment No echo/wall motion record on file, TTE pending Patient with some confusion suspect from rate induced poor perfusion. Mentation improved at time of hospitalist assessment. Distal extremity strength/sensation is intact without focal neurologic deficits suggestive of stroke at time of conversion to sinus. CThead normal on admission Plan DVT prophylaxis: Anticoagulated on warfarin Diet: Heart healthy Disposition: PCU for initial A-fib RVR and possible need for IV rate control if recurrent CODE STATUS: Full code History of Present Illness Primary Care Provider: GWEN Billings Ted is a 77-year-old male with past medical history of hyperlipidemia, COPD, hypothyroidism, cognitive decline last admitted 2019 for urosepsis who presents to the ER for evaluation of shortness of breath. On ER arrival patient was found to be more confused than his normal baseline and cyanotic, patient was tachycardic to the 160s for which patient received adenosine and subsequently an EKG which showed A-fib. Patient was given a fluid bolus, empiric antibiotics, and UA/CT were ordered. Initial ER labs: No leukocytosis Hemoglobin 11.1, baseline 2019 10.211.5 VBG 7.3 // No sodium/potassium derangement Creatinine baseline last around 1.1, admitting creatinine 1.25 BUN/creatinine ratio 21 consistent with volume contraction Troponin high-sensitivity 32.6 Procalcitonin pending Bio fire Positive for human metapneumovirus CXR: No acute finding - Afib: Afib RVR, ST atnerolateral sepressions, nonsepcific T wave changes Repeat EKG normal sinus rhythm -INR: 5.5, patient is on warfarin 5 mg every afternoon - Procalcitonin 1.04 Patient is extremely hard of hearing. Per report Presented to [facility] with hypotension/tachycardia. Hx COPD. +acute on chronic confusion. ?restricted air movement. Past admits for UTI tx empirically with sepsis due to prostatitis 2019 --> tx rocephin given empirically in ER. Patient with rapid heart rate for which he received 1 L of NSS and Cardizem. Subsequently converted to sinus rhythm with a rate in the 80s. [facility] Poor appetite x2 days, cellmate brought down for not eating since . Poor PO intake, not drinking well. Pt feel dry. Afebrile at [facility]. FOund to be tachycardia >130s. Baseline mentation is with [place] and some confusion but normally oriented to year/place and relatively appropriate. Patient is seen at the bedside, reports he feels improved since coming in. He is oriented to place and month on reassessment. Denies pain. Denies shortness of breath. He reports he has no appetite, but no nausea/vomiting/diarrhea. At time of assessment he denies chest pain, chest pressure, palpitations, lightheadedness, or shortness of breath. Endorses some cough with clear sputum production. Is not sure how long this has been worse for. Medical History: Reviewed Medications: Reviewed Surgical History: Reviewed Family history: Reviewed Allergies: Reviewed Social History: Reviewed Code Status: Full Code [facility]s [facility] Xopenex. Incruse Ellipta 62.5mcg, Keppra 500mg BID (hx of seizures, none observed at [facility] since 2019), synthroid 150mcg, lisinopril 5mg daily, singulair 10mg daily, crestor 50mg hs, 75 sertraline daily. Flomax 0.4mg qHS, coumadin 2.5 tab and 3mg tab every day,, Allergies Allergy/AdvReac Type Severity Reaction Status Date / Time No Known Allergies Allergy Verified 07/01/19 19:55 Home Medications Medication Instructions Recorded Confirmed Type levalbuterol tartrate 45 2 inh inhalation QID 07/01/19 07/04/22 History mcg/actuation aerosol inhaler (Xopenex HFA) rosuvastatin 40 mg tablet 40 mg PO QPM 07/01/19 07/04/22 History sertraline 25 mg tablet 75 mg PO QAM 07/01/19 07/04/22 History polyethylene glycol 3350 17 gram 17 g PO BID #60 ea 07/07/19 07/04/22 Rx oral powder packet (Miralax) levetiracetam 500 mg tablet 500 mg PO BID 07/04/22 07/04/22 History (Keppra) levothyroxine 150 mcg tablet 150 mcg PO DAILY 07/04/22 07/04/22 History (Synthroid) tamsulosin 0.4 mg capsule (Flomax) 0.4 mg PO DAILY 07/04/22 07/04/22 History umeclidinium 62.5 mcg/actuation 1 inh inhalation DAILY 07/04/22 07/04/22 History blister powder for inhalation (Incruse Ellipta) warfarin 2.5 mg tablet 2.5 mg PO DAILY 07/04/22 07/04/22 History warfarin 3 mg tablet 3 mg PO DAILY 07/04/22 07/04/22 History Past Med/Surg History Medical History (Updated 07/04/22 @ 12:11 by Rafal Vázquez MD) COPD (chronic obstructive pulmonary disease) Dyslipidemia Hypertension Hypothyroid Neurocognitive disorder Family History Sister Seizures Other No significant family history Social History Smoking Status: Current every day smoker Tobacco Type: E-cigarettes / Vaping Hx Alcohol Use: No Hx Substance Use: No Preferred Language: Setswana Communication Ability: Effective Computer System Specialist Required: No Beliefs That Will Affect Care: None Current Living Situation: Other Current Living Situation Comment: Long-Term Feels Safe at Home: Yes Assistive Devices: None Review of Systems Review of Systems: All systems reviewed & are unremarkable except as noted in HPI & below Physical Exam Physical Exam: General: alert and oriented to name, place, and month. No acute distress. Appears ill but nontoxic HEENT: Atraumatic, normocephalic. Vision grossly intact, patient is extremely hard ofhearing Pulm: Diminished, scattered expiratory wheezes and prolonged expiration. Symmetrical chest rise. No increased work of breathing. No respiratory distress. Cardiac: RRR, -mrg. Radial pulses intact and symmetrical. Abdominal: Nontender, nondistended, soft. BS present. Extremities: Warm, dry. Moves all extremities equally. Sensation of soft touch intact in hands and feet Results & Data Results & Data Vital Signs (Past 12 Hours) Vital Signs Temp Pulse Resp BP Pulse Ox O2 Del Method O2 Flow Rate 07/04/22 10:45 81 20 95 Oxymask 6 07/04/22 10:30 87 26 H 86 L Nasal Cannula 4 07/04/22 10:30 123/65 07/04/22 10:15 82 24 94 Nebulizer 07/04/22 10:15 127/66 07/04/22 10:01 105/65 07/04/22 10:01 157 H 27 H 95 Nebulizer 07/04/22 10:00 163 H 27 H 93 Room Air 07/04/22 09:46 104/58 L 07/04/22 09:46 160 H 30 H 92 Room Air 07/04/22 09:45 166 H 31 H 92 Room Air 07/04/22 09:31 165 H 38 H 89 L Room Air 07/04/22 10:51 86 L Nasal Cannula, Oxymask 4 07/04/22 10:12 94 H 07/04/22 09:30 Room Air 07/04/22 09:30 36.8 C 165 H 22 103/73 92 Room Air 07/04/22 09:32 165 H PG Care Time/CCT Total # of Minutes Spent Total Time Spent with Patient: Total time spent is greater than 50% in coordination of care (as documented) at patient's floor/unit and/or counseling patient: Coding Level of Care Code 73404 INT INP/OBS CARE 375MIN Diagnoses Human metapneumovirus (hMPV) pneumonia J12.3 COPD (chronic obstructive pulmonary disease) J44.9 COPD type: unspecified COPD Seizure R56.9 Hypoxia R09.02 Dyslipidemia E78.5 Hypertension I10 Hypertension type: essential hypertension Hypothyroid E03.9 Hypothyroidism type: unspecified Afib I48.91 (2) COPD (chronic obstructive pulmonary disease) COPD type: unspecified COPD Qualified Code(s): J44.9 - Chronic obstructive pulmonary disease, unspecified (6) Hypertension Hypertension type: essential hypertension Qualified Code(s): I10 - Essential (primary) hypertension (7) Hypothyroid Hypothyroidism type: unspecified Qualified Code(s): E03.9 - Hypothyroidism, unspecified
--- NOTE | 2022-07-04 12:48 | Electrocardiogram Report ---
Test Reason : Blood Pressure : / mmHG Vent. Rate : 160 BPM Atrial Rate : 000 BPM P-R Int : 000 ms QRS Dur : 088 ms QT Int : 302 ms P-R-T Axes : 000 -04 074 degrees QTc Int : 492 ms Atrial fibrillation with rapid ventricular response Nonspecific ST and T wave abnormality Abnormal ECG When compared with ECG of 02-JUL-2019 23:14, Atrial fibrillation has replaced Sinus rhythm Vent. rate has increased BY [address] now depressed in Anterolateral leads Nonspecific T wave abnormality now evident in Lateral leads Confirmed by Tobi Arreaga ([id number]) on 07/04/2022 12:48:05 PM Referred By: REFERRED SELF Confirmed By:Claus Arreaga
--- NOTE | 2022-07-04 12:50 | Electrocardiogram Report ---
Test Reason : Blood Pressure : / mmHG Vent. Rate : 078 BPM Atrial Rate : 078 BPM P-R Int : 142 ms QRS Dur : 086 ms QT Int : 412 ms P-R-T Axes : 060 026 069 degrees QTc Int : 469 ms Normal sinus rhythm Normal ECG When compared with ECG of 04-JUL-2022 09:32, (unconfirmed) Sinus rhythm has replaced Atrial fibrillation Vent. rate has decreased BY 82 BPM Confirmed by Tobi Arreaga ([id number]) on 07/04/2022 12:50:01 PM Referred By: REFERRED SELF Confirmed By:Claus Arreaga
[2022-07-04] MEDS ORDERED: AZITHROMYCIN 250 MG TAB PO ONE (16:35)
[2022-07-04] MEDS ORDERED: LEVALBUTEROL TARTRATE 15 GM HFA.AER.AD INH PRN (16:35)
--- NOTE | 2022-07-04 17:00 | XCELERA ---
[id number]
[2022-07-04 18:35] LABS: Appearance Urine Cloudy (Clear); Bacteria Urine Automated Negative (Negative); Bilirubin Urine Negative (Negative); Blood Urine 2+ (Negative); Color Urine Dark Yellow; Glucose Urine UA Negative (Negative); Ketones Urine 1+ (Negative); Leukocyte Esterase Urine 1+ (Negative); Nitrite Urine Negative (Negative); Protein Urine 2+ (Negative); RBC Urine Automated 0-4 /hpf (0-4); Specific Gravity Urine 1.028 (1.000-1.030); Urobilinogen Urine Negative (Negative); pH Urine 5.5 (4.5-7.5)
[2022-07-04 18:52] LABS: Mucus Urine Present (None Prsent)
[2022-07-04] MEDS: METOPROLOL TARTRATE 25 MG TAB PO SCH (21:10)
[2022-07-04] MEDS: ROSUVASTATIN CALCIUM 20 MG TAB PO SCH (21:11)
[2022-07-04] MEDS: guaiFENesin 600 MG TABCR PO SCH (21:11)
[2022-07-04] MEDS: levETIRAcetam 500 MG TAB PO SCH (21:12)
[2022-07-05 04:47] LABS: Amphetamines+Metham, Urine Neg (Neg); Barbiturates, Urine Neg (Neg); Benzodiazepine, Urine Neg (Neg); Cocaine, Urine Neg (Neg); MDMA (Ecstacy), Urine Neg (Neg); Methadone, Urine Neg (Neg); Opiate, Urine Neg (Neg); Phencyclidine, Urine Neg (Neg)
[2022-07-05] MEDS: LEVOTHYROXINE SODIUM 150 MCG TABLET PO SCH (05:57)
[2022-07-05] MEDS: guaiFENesin 600 MG TABCR PO SCH ×2 (08:14→20:14)
[2022-07-05] MEDS: UMECLIDINIUM BROMIDE 62.5MCG/BLISTER 7 PUFFS/INHALER INH SCH (08:14)
[2022-07-05] MEDS: levETIRAcetam 500 MG TAB PO SCH ×2 (08:15→20:14)
[2022-07-05] MEDS: METOPROLOL TARTRATE 25 MG TAB PO SCH ×2 (08:15→20:14)
[2022-07-05] MEDS: methylPREDNISolone 40 MG in SYRINGE 0 ML IV SCH ×2 (08:16→20:15)
[2022-07-05] MEDS: SERTRALINE HCL 50 MG TABLET PO SCH (08:16)
[2022-07-05] MEDS: TAMSULOSIN HCL 0.4 MG CAP PO SCH (08:17)
[2022-07-05] MEDS: AZITHROMYCIN 250 MG TAB PO SCH (08:17)
[2022-07-05 09:16] LABS: Basophils # (auto) 0.01 K/uL (0-0.2); Basophils % (auto) 0.1 %; Hematocrit (blood only) 33.4 % (42.0-52.0); Hemoglobin 11.4 g/dl (14.0-18.0); Immature Granulocytes # (auto) 0.05 K/uL (0.01-0.20); Immature Granulocytes % (auto) 0.5 %; Lymphocytes # (auto) 0.88 K/uL (1.2-3.4); Lymphocytes % (auto) 8.1 %; Mean Corpuscular Hemoglobin 29.1 pg (25.0-34.0); Mean Corpuscular Hgb Conc 34.1 g/dL (32.0-36.0); Mean Corpuscular Volume 85.2 fL (80.0-100.0); Mean Platelet Volume 10.3 fL (9.4-12.4); Monocytes # (auto) 0.52 K/uL (0.11-0.59); Monocytes % (auto) 4.8 %; Neutrophils # (auto) 9.45 K/uL (1.40-6.50); Neutrophils % (auto) 86.5 %; Platelet Count 232 K/uL (130-400); RDW Coefficient of Variation 15.6 % (11.5-14.5); RDW Standard Deviation 48.2 fL (36.4-46.3); Red Blood Count 3.92 M/uL (4.70-6.10); White Blood Count 10.91 K/ul (4.8-10.8)
[2022-07-05 09:36] LABS: BUN Creatinine Ratio 34.7 (10-20); Calcium 8.4 mg/dl (8.6-10.3); Est GFR (African American) 90.4 ml/min; Potassium 3.9 mmol/L (3.5-5.1)
[2022-07-05 09:43] LABS: Prothrombin Time 68.3 Seconds (9.0-12.0)
[2022-07-05 09:50] LABS: INR 7.1 (0.9-1.1)
[2022-07-05 11:48] LABS: D Dimer 370 ug/L FEU (0-500); Fibrinogen > 860 mg/dl (184-400)
[2022-07-05 19:12] LABS: Hematocrit (blood only) 33.4 % (42.0-52.0); Hemoglobin 11.4 g/dl (14.0-18.0); Mean Corpuscular Hemoglobin 29.5 pg (25.0-34.0); Mean Corpuscular Hgb Conc 34.1 g/dL (32.0-36.0); Mean Corpuscular Volume 86.3 fL (80.0-100.0); Mean Platelet Volume 10.1 fL (9.4-12.4); Platelet Count 244 K/uL (130-400); RDW Standard Deviation 47.5 fL (36.4-46.3); Red Blood Count 3.87 M/uL (4.70-6.10); White Blood Count 12.99 K/ul (4.8-10.8)
[2022-07-05 19:48] LABS: Partial Thromboplastin Ratio 2.6
[2022-07-05] MEDS: ROSUVASTATIN CALCIUM 20 MG TAB PO SCH (20:14)
[2022-07-05 20:22] LABS: INR 6.6 (0.9-1.1)
[2022-07-05 20:23] LABS: Partial Thromboplastin Time 74.3 Seconds (21.0-31.0)
--- NOTE | 2022-07-05 23:02 | Hospitalist Progress Note ---
Date of Service July 05, 2022 Assessment & Plan (1) Human metapneumovirus (hMPV) pneumonia: Plan: Acute hypoxic respiratory failure 2/2 human metapneumovirus +/- COPD exacerbation BioFire positive for human metapneumovirus No leukocytosis CXR clear Patient with diminished air movement and expiratory wheezing consistent with virally induced COPD exacerbation Procalcitonin elevated to 1.04, may be due to severe volume depletion with viral infection and no p.o. intake since evening/3 days ago Patient received Rocephin on admission to cover empirically for possible UTI given patient's history, UA remains pending. Patient denies urinary symptoms. We will treat for concurrent COPD exacerbation narrow antibiotics to azithromycin. If UA returns positive or blood cultures positive, will expand antibiotics as needed accordingly Titrate SPO2 to 89% Patient appears to be improving. will continue above treatment (2) COPD (chronic obstructive pulmonary disease): Plan: Azithromycin as noted, oxygen to 89% as noted Continue Incruse daily Received methylprednisolone 60 mg in ER, will continue 40 mg twice daily and wean as able based on clinical progression for COPD exacerbation Xopenex as needed Guaifenesin added Flutter valve, incentive spirometer No PFTs available for review (3) Seizure: Plan: History of suspected seizure disorder, patient evaluated for seizure in 2019 in context of UTI. Neuroimaging/EEG without strong support of seizure, but patient was recommended to continue empiric treatment with Keppra twice daily for prophylaxis Keppra 500 mg twice daily continued No seizures while at [place] [facility] We will add seizure precautions, if patient experiences seizure-like activity Ativan 2 mg IV every 5 minutes up to 3 doses and notify provider (4) Hypoxia: Plan: Due to COPD/human metapneumovirus as noted (5) Dyslipidemia: Plan: Continue statin (6) Hypertension: Plan: Normotensive following fluids and conversion to normal rhythm. No antihypertensives per [facility] (7) Hypothyroid: Plan: Continue Synthroid, increased as outpatient to 150 mcg daily TSH pending (8) Afib: Plan: Patient is anticoagulated on warfarin. Home dose is 5.5 mg every evening Supratherapeutic INR on admission with outpatient dose adjustment from 5.0 mg daily to 5.5 mg and poor p.o. intake x3 days Evening Coumadin held 07/04, INR trended Patient received fluids and diltiazem in ER converted to normal sinus rhythm. Suspect A-fib provoked by viral illness, if BP remains adequate add metoprolol succinate 25 mg daily for suppression 07/05 With elevated troponin of 32.6 on admission, suspect demand ischemia. Trended, no chest pain before arrival and patient denies chest pain at bedside assessment No echo/wall motion record on file, TTE pending Patient with some confusion suspect from rate induced poor perfusion. Mentation improved at time of hospitalist assessment. Distal extremity strength /sensation is intact without focal neurologic deficits suggestive of stroke at time of conversion to sinus. CThead normal on admission Plan DVT prophylaxis: Anticoagulated on warfarin Diet: Heart healthy Disposition: PCU for initial A-fib RVR and possible need for IV rate control if recurrent CODE STATUS: Full code Admission and Anticipated Discharge Date Admission Date: July 04, 2022 Subjective 77 yo male reports feeling fatigued. Review of Systems Review of Systems: All systems reviewed & are unremarkable except as noted in HPI & below Physical Exam Physical Exam: General: alert and oriented to name, place, and month. No acute distress. Appears ill but nontoxic HEENT: Atraumatic, normocephalic. Vision grossly intact, patient is extremely hard ofhearing Pulm: Diminished, scattered expiratory wheezes and prolonged expiration. Symmetrical chest rise. No increased work of breathing. No respiratory distress. Cardiac: RRR, -mrg. Radial pulses intact and symmetrical. Abdominal: Nontender, nondistended, soft. BS present. Extremities: Warm, dry. Moves all extremities equally. Sensation of soft touch intact in hands and feet Results & Data Results & Data Vital Signs (Past 12 Hours) Vital Signs Temp Pulse Pulse Resp BP Pulse Ox O2 Del Method 07/05/22 20:00 Nasal Cannula 07/05/22 20:09 36.6 C 79 22 162/81 H 93 Nasal Cannula 07/05/22 16:00 73 07/05/22 15:19 36.8 C 80 19 147/78 H 91 Nasal Cannula 07/05/22 11:34 36.9 C 73 17 127/67 92 Nasal Cannula O2 Flow Rate 07/05/22 20:00 2 07/05/22 20:09 2 07/05/22 16:00 07/05/22 15:19 2 07/05/22 11:34 2 PG Care Time/CCT Total # of Minutes Spent Total Time Spent with Patient: Total time spent is greater than 50% in coordination of care (as documented) at patient's floor/unit and/or counseling patient: Coding Level of Care Code 49300 SUB INP/OBS CARE 2/35MIN Diagnoses Human metapneumovirus (hMPV) pneumonia J12.3 COPD (chronic obstructive pulmonary disease) J44.9 COPD type: unspecified COPD Seizure R56.9 Hypoxia R09.02 Dyslipidemia E78.5 Hypertension I10 Hypertension type: essential hypertension Hypothyroid E03.9 Hypothyroidism type: unspecified Afib I48.91 (2) COPD (chronic obstructive pulmonary disease) COPD type: unspecified COPD Qualified Code(s): J44.9 - Chronic obstructive pulmonary disease, unspecified (6) Hypertension Hypertension type: essential hypertension Qualified Code(s): I10 - Essential (primary) hypertension (7) Hypothyroid Hypothyroidism type: unspecified Qualified Code(s): E03.9 - Hypothyroidism, unspecified
[2022-07-06] MEDS: LEVOTHYROXINE SODIUM 150 MCG TABLET PO SCH (05:56)
[2022-07-06 07:22] LABS: Basophils # (auto) 0.01 K/uL (0-0.2); Basophils % (auto) 0.1 %; Hematocrit (blood only) 33.4 % (42.0-52.0); Hemoglobin 11.4 g/dl (14.0-18.0); Immature Granulocytes # (auto) 0.28 K/uL (0.01-0.20); Immature Granulocytes % (auto) 2.4 %; Lymphocytes # (auto) 1.06 K/uL (1.2-3.4); Mean Corpuscular Hgb Conc 34.1 g/dL (32.0-36.0); Mean Platelet Volume 10.1 fL (9.4-12.4); Monocytes # (auto) 0.45 K/uL (0.11-0.59); Monocytes % (auto) 3.8 %; Neutrophils % (auto) 84.7 %; Platelet Count 278 K/uL (130-400); RDW Coefficient of Variation 14.9 % (11.5-14.5); RDW Standard Deviation 46.7 fL (36.4-46.3); Red Blood Count 3.93 M/uL (4.70-6.10)
[2022-07-06 07:52] LABS: Fibrinogen 787 mg/dl (184-400); INR 5.4 (0.9-1.1); Partial Thromboplastin Ratio 2.4; Prothrombin Time 53.4 Seconds (9.0-12.0)
[2022-07-06 07:59] LABS: Calcium 8.5 mg/dl (8.6-10.3); Creatinine Clr Calc Pharmacy 74.4 ml/min; Est GFR (African American) 99.8 ml/min; Est GFR (Non-African American) 86.1 ml/min
[2022-07-06] MEDS: SERTRALINE HCL 50 MG TABLET PO SCH (08:55)
[2022-07-06] MEDS: guaiFENesin 600 MG TABCR PO SCH ×2 (08:56→20:07)
[2022-07-06] MEDS: METOPROLOL TARTRATE 25 MG TAB PO SCH ×2 (08:56→20:07)
[2022-07-06] MEDS: AZITHROMYCIN 250 MG TAB PO SCH (08:57)
[2022-07-06] MEDS: TAMSULOSIN HCL 0.4 MG CAP PO SCH (08:57)
[2022-07-06] MEDS: levETIRAcetam 500 MG TAB PO SCH ×2 (08:57→20:07)
[2022-07-06] MEDS: UMECLIDINIUM BROMIDE 62.5MCG/BLISTER 7 PUFFS/INHALER INH SCH (08:58)
[2022-07-06] MEDS: methylPREDNISolone 40 MG in SYRINGE 0 ML IV SCH ×2 (08:58→20:06)
[2022-07-06] MEDS: ROSUVASTATIN CALCIUM 20 MG TAB PO SCH (20:08)
--- NOTE | 2022-07-06 21:23 | Hospitalist Progress Note ---
Date of Service July 06, 2022 Assessment & Plan (1) Human metapneumovirus (hMPV) pneumonia: Plan: Acute hypoxic respiratory failure 2/2 human metapneumovirus +/- COPD exacerbation BioFire positive for human metapneumovirus No leukocytosis CXR clear Patient with diminished air movement and expiratory wheezing consistent with virally induced COPD exacerbation Procalcitonin elevated to 1.04, may be due to severe volume depletion with viral infection and no p.o. intake since evening/3 days ago Patient received Rocephin on admission to cover empirically for possible UTI given patient's history, UA remains pending. Patient denies urinary symptoms. We will treat for concurrent COPD exacerbation narrow antibiotics to azithromycin. If UA returns positive or blood cultures positive, will expand antibiotics as needed accordingly Titrate SPO2 to 89% Patient appears to be improving. will continue above treatment Concern for possible DIC, as PTT and PT/INR was elevated from viral infection. Now trending down but continues to be elevated. WIll continue to monitor PTT and his PT/INR. (2) COPD (chronic obstructive pulmonary disease): Plan: Azithromycin as noted, oxygen to 89% as noted Continue Incruse daily Received methylprednisolone 60 mg in ER, will continue 40 mg twice daily and wean as able based on clinical progression for COPD exacerbation Xopenex as needed Guaifenesin added Flutter valve, incentive spirometer No PFTs available for review (3) Seizure: Plan: History of suspected seizure disorder, patient evaluated for seizure in 2019 in context of UTI. Neuroimaging/EEG without strong support of seizure, but patient was recommended to continue empiric treatment with Keppra twice daily for prophylaxis Keppra 500 mg twice daily continued No seizures while at [place] since [facility] We will add seizure precautions, if patient experiences seizure-like activity Ativan 2 mg IV every 5 minutes up to 3 doses and notify provider (4) Hypoxia: Plan: Due to COPD/human metapneumovirus as noted (5) Dyslipidemia: Plan: Continue statin (6) Hypertension: Plan: Normotensive following fluids and conversion to normal rhythm. No antihypertensives per [facility] (7) Hypothyroid: Plan: Continue Synthroid, increased as outpatient to 150 mcg daily (8) Afib: Plan: Patient is anticoagulated on warfarin. Home dose is 5.5 mg every evening Supratherapeutic INR on admission with outpatient dose adjustment from 5.0 mg daily to 5.5 mg and poor p.o. intake x3 days Evening Coumadin held 07/04, INR trended Patient received fluids and diltiazem in ER converted to normal sinus rhythm. Suspect A-fib provoked by viral illness, if BP remains adequate add metoprolol succinate 25 mg daily for suppression 07/05 With elevated troponin of 32.6 on admission, suspect demand ischemia. Trended, no chest pain before arrival and patient denies chest pain at bedside assessment No echo/wall motion record on file, TTE pending Patient with some confusion suspect from rate induced poor perfusion. Mentation improved at time of hospitalist assessment. Distal extremity strength/sensation is intact without focal neurologic deficits suggestive of stroke at time of conversion to sinus. CThead normal on admission Plan DVT prophylaxis: Anticoagulated on warfarin Diet: Heart healthy Disposition: PCU for initial A-fib RVR and possible need for IV rate control if recurrent CODE STATUS: Full code Admission and Anticipated Discharge Date Admission Date: July 04, 2022 Subjective Patient reports feeling better. SOB has improved. Review of Systems Review of Systems: All systems reviewed & are unremarkable except as noted in HPI & below Physical Exam Physical Exam: General: alert and oriented to name, place, and month. No acute distress. Appears ill but nontoxic HEENT: Atraumatic, normocephalic. Vision grossly intact, patient is extremely hard ofhearing Pulm: Diminished, scattered expiratory wheezes and prolonged expiration. Symmetrical chest rise. No increased work of breathing. No respiratory distress. Cardiac: RRR, -mrg. Radial pulses intact and symmetrical. Abdominal: Nontender, nondistended, soft. BS present. Extremities: Warm, dry. Moves all extremities equally. Sensation of soft touch intact in hands and feet Results & Data Results & Data Vital Signs (Past 12 Hours) Vital Signs Temp Pulse Pulse Pulse Resp BP Pulse Ox 07/06/22 19:55 36.7 C 65 18 150/99 H 90 07/06/22 16:02 36.5 C 78 20 149/90 H 91 07/06/22 15:39 68 07/06/22 11:45 36.8 C 98 H 91 H 163/78 H 91 07/06/22 12:16 67 O2 Del Method 07/06/22 19:55 Room Air 07/06/22 16:02 Room Air 07/06/22 15:39 07/06/22 11:45 07/06/22 12:16 PG Care Time/CCT Total # of Minutes Spent Total Time Spent with Patient: Total time spent is greater than 50% in coordination of care (as documented) at patient's floor/unit and/or counseling patient: Coding Level of Care Code 10945 SUB INP/OBS CARE 2/35MIN Diagnoses Human metapneumovirus (hMPV) pneumonia J12.3 COPD (chronic obstructive pulmonary disease) J44.1 COPD type: COPD with acute exacerbation Seizure R56.9 Hypoxia R09.02 Dyslipidemia E78.5 Hypertension I10 Hypertension type: essential hypertension Hypothyroid E03.9 Hypothyroidism type: unspecified Afib I48.91 (2) COPD (chronic obstructive pulmonary disease) COPD type: COPD with acute exacerbation Qualified Code(s): J44.1 - Chronic obstructive pulmonary disease with (acute) exacerbation (6) Hypertension Hypertension type: essential hypertension Qualified Code(s): I10 - Essential (primary) hypertension (7) Hypothyroid Hypothyroidism type: unspecified Qualified Code(s): E03.9 - Hypothyroidism, unspecified
[2022-07-07] MEDS: LEVOTHYROXINE SODIUM 150 MCG TABLET PO SCH (06:17)
[2022-07-07 06:37] LABS: Hematocrit (blood only) 37.4 % (42.0-52.0); Mean Corpuscular Hemoglobin 29.2 pg (25.0-34.0); Mean Corpuscular Hgb Conc 34.8 g/dL (32.0-36.0); Mean Platelet Volume 9.9 fL (9.4-12.4); Nucleated RBC # (auto) 0.02 K/uL (0-0.12); Nucleated RBC % (auto) 0.2 %; Platelet Count 321 K/uL (130-400); RDW Coefficient of Variation 14.6 % (11.5-14.5); RDW Standard Deviation 44.3 fL (36.4-46.3); Red Blood Count 4.45 M/uL (4.70-6.10)
[2022-07-07 06:47] LABS: BUN Creatinine Ratio 35.8 (10-20); Calcium 8.7 mg/dl (8.6-10.3); Creatinine Clr Calc Pharmacy 76.2 ml/min; Est GFR (African American) 100.8 ml/min; Est GFR (Non-African American) 86.9 ml/min; Potassium 4.1 mmol/L (3.5-5.1)
[2022-07-07 07:12] LABS: INR 4.5 (0.9-1.1); Partial Thromboplastin Ratio 1.8; Prothrombin Time 45.2 Seconds (9.0-12.0)
[2022-07-07 07:22] LABS: Partial Thromboplastin Time 51.7 Seconds (21.0-31.0)
[2022-07-07 07:34] LABS: Basophils # (auto) 0.08 K/uL (0-0.2); Basophils % (auto) 0.6 %; Immature Granulocytes # (auto) 0.82 K/uL (0.01-0.20); Immature Granulocytes % (auto) 6.6 %; Lymphocytes # (auto) 1.46 K/uL (1.2-3.4); Lymphocytes % (auto) 11.8 %; Monocytes # (auto) 0.79 K/uL (0.11-0.59); Monocytes % (auto) 6.4 %; Neutrophils # (auto) 9.25 K/uL (1.40-6.50); Neutrophils % (auto) 74.6 %
[2022-07-07] MEDS: guaiFENesin 600 MG TABCR PO SCH ×2 (08:39→20:18)
[2022-07-07] MEDS: METOPROLOL TARTRATE 25 MG TAB PO SCH ×2 (08:40→20:19)
[2022-07-07] MEDS: AZITHROMYCIN 250 MG TAB PO SCH (08:41)
[2022-07-07] MEDS: levETIRAcetam 500 MG TAB PO SCH ×2 (08:41→20:19)
[2022-07-07] MEDS: TAMSULOSIN HCL 0.4 MG CAP PO SCH (08:41)
[2022-07-07] MEDS: SERTRALINE HCL 50 MG TABLET PO SCH (08:42)
[2022-07-07] MEDS: methylPREDNISolone 40 MG in SYRINGE 0 ML IV SCH (08:42)
[2022-07-07] MEDS: UMECLIDINIUM BROMIDE 62.5MCG/BLISTER 7 PUFFS/INHALER INH SCH (08:43)
[2022-07-07 09:11] LABS: C Reactive Protein 4.77 mg/dl (0-0.5)
--- NOTE | 2022-07-07 12:13 | XRay Report ---
XR chest 2V PA/lateral CLINICAL HISTORY: metapneumoviral pneumonia TECHNIQUE: 2 views of the chest were obtained. Comparison: Comparison is made to chest radiograph 07/04/2022 FINDINGS: No lines and tubes are seen. The cardiomediastinal silhouette is normal. Bilateral linear densities a re seen in the lower lungs. No evidence of pleural effusion or pneumothorax. IMPRESSION: Bilateral linear densities are in the lower lungs. These may represent atelectasis, however pneumonia /aspiration cannot be excluded. ACT 112: Negative or not required by law. Electronically signed by: Wiley Villela M.D. 07/07/2022 12:12 PM
[2022-07-07] MEDS ORDERED: HEPARIN SOD 5,000 UNIT/0.5 ML VIAL SQ STA (15:30)
[2022-07-07 16:51] LABS: Partial Thromboplastin Ratio 1.7; Prothrombin Time 49.3 Seconds (9.0-12.0)
[2022-07-07 17:01] LABS: Partial Thromboplastin Time 48.5 Seconds (21.0-31.0)
[2022-07-07 19:31] LABS: Hematocrit (blood only) 37.5 % (42.0-52.0); Mean Corpuscular Hemoglobin 29.1 pg (25.0-34.0); Mean Corpuscular Hgb Conc 34.7 g/dL (32.0-36.0); Mean Corpuscular Volume 83.9 fL (80.0-100.0); Nucleated RBC # (auto) 0.03 K/uL (0-0.12); Nucleated RBC % (auto) 0.2 %; Platelet Count 331 K/uL (130-400); RDW Coefficient of Variation 14.7 % (11.5-14.5); RDW Standard Deviation 45.1 fL (36.4-46.3); Red Blood Count 4.47 M/uL (4.70-6.10); White Blood Count 14.79 K/ul (4.8-10.8)
[2022-07-07 19:58] LABS: Basophils # (auto) 0.13 K/uL (0-0.2); Basophils % (auto) 0.9 %; Immature Granulocytes # (auto) 1.37 K/uL (0.01-0.20); Immature Granulocytes % (auto) 9.3 %; Lymphocytes % (auto) 18.3 %; Monocytes # (auto) 1.23 K/uL (0.11-0.59); Monocytes % (auto) 8.3 %; Neutrophils # (auto) 9.36 K/uL (1.40-6.50); Neutrophils % (auto) 63.2 %
[2022-07-07] MEDS: ROSUVASTATIN CALCIUM 20 MG TAB PO SCH (20:19)
[2022-07-07] MEDS ORDERED: HEPARIN SOD 5,000 UNIT/0.5 ML VIAL SQ SCH (22:00)
--- NOTE | 2022-07-07 22:45 | Hospitalist Progress Note ---
Date of Service July 07, 2022 Assessment & Plan (1) Human metapneumovirus (hMPV) pneumonia: Plan: Acute hypoxic respiratory failure 2/2 human metapneumovirus +/- COPD exacerbation BioFire positive for human metapneumovirus No leukocytosis CXR clear Patient with diminished air movement and expiratory wheezing consistent with virally induced COPD exacerbation Procalcitonin elevated to 1.04, may be due to severe volume depletion with viral infection and no p.o. intake since evening/3 days ago Patient received Rocephin on admission however antibiotics stopped: aside from azithromycin. Patient denies urinary symptoms. -will taper steroids. Titrate SPO2 to 89% Patient appears to be improving. will continue above treatment Concern for possible DIC, as PTT and PT/INR was elevated from viral infection. Now trending down but continues to be elevated. WIll continue to monitor PTT and his PT/INR. Likely discharge in AM, if continues to trend downward[facility] WBC likely due to steroids, will taper. (2) COPD (chronic obstructive pulmonary disease): Plan: Azithromycin as noted, oxygen to 89% as noted Continue Incruse daily Received methylprednisolone 60 mg in ER, will continue 40 mg twice daily and wean as able based on clinical progression for COPD exacerbation Xopenex as needed Guaifenesin added Flutter valve, incentive spirometer No PFTs available for review (3) Seizure: Plan: History of suspected seizure disorder, patient evaluated for seizure in 2019 in context of UTI. Neuroimaging/EEG without strong support of seizure, but patient was recommended to continue empiric treatment with Keppra twice daily for prophylaxis Keppra 500 mg twice daily continued No seizures while at [place] since [facility] We will add seizure precautions, if patient experiences seizure-like activity Ativan 2 mg IV every 5 minutes up to 3 doses and notify provider (4) Hypoxia: Plan: Due to COPD/human metapneumovirus as noted (5) Dyslipidemia: Plan: Continue statin (6) Hypertension: Plan: Normotensive following fluids and conversion to normal rhythm. No antihypertensives per [facility] BP likely increased from corticosteroids. (7) Hypothyroid: Plan: Continue Synthroid, increased as outpatient to 150 mcg daily (8) Afib: Plan: Patient is anticoagulated on warfarin. Home dose is 5.5 mg every evening Supratherapeutic INR on admission with outpatient dose adjustment from 5.0 mg daily to 5.5 mg and poor p.o. intake x3 days Evening Coumadin held 07/04, INR trended Patient received fluids and diltiazem in ER converted to normal sinus rhythm. Suspect A-fib provoked by viral illness, if BP remains adequate add metoprolol succinate 25 mg daily for suppression 07/05 With elevated troponin of 32.6 on admission, suspect demand ischemia. Trended, no chest pain before arrival and patient denies chest pain at bedside assessment No echo/wall motion record on file, TTE pending Patient with some confusion suspect from rate induced poor perfusion. Mentation improved at time of hospitalist assessment. Distal extremity strength/sensation is intact without focal neurologic deficits suggestive of stroke at time of conversion to sinus. CThead normal on admission Plan DVT prophylaxis: Anticoagulated on warfarin Diet: Heart healthy Disposition: PCU for initial A-fib RVR and possible need for IV rate control if recurrent CODE STATUS: Full code Admission and Anticipated Discharge Date Admission Date: July 04, 2022 Subjective Patient reports no new symptoms. Patient has been intermittently confused as per the guards. Review of Systems Review of Systems: All systems reviewed & are unremarkable except as noted in HPI & below Physical Exam Physical Exam: General: alert and oriented to name, place, and month. No acute distress. No longer appears ill. HEENT: Atraumatic, normocephalic. Vision grossly intact, patient is extremely hard of hearing Pulm: Diminished at bases, no wheezing heard, Symmetrical chest rise. No increased work of breathing. No respiratory distress. Cardiac: RRR, -mrg. Radial pulses intact and symmetrical. Abdominal: Nontender, nondistended, soft. BS present. Extremities: Warm, dry. Moves all extremities equally. Sensation of soft touch intact in hands and feet Results & Data Results & Data Vital Signs (Past 12 Hours) Vital Signs Temp Pulse Pulse Resp BP Pulse Ox O2 Del Method 07/07/22 20:00 Nasal Cannula 07/07/22 19:49 37.1 C 66 18 157/81 H 91 Nasal Cannula 07/07/22 14:14 58 L 07/07/22 16:00 37.2 C 64 18 185/91 H 90 Room Air 07/07/22 11:32 36.3 C L 62 20 174/91 H 90 Nasal Cannula 07/07/22 11:25 84 O2 Flow Rate 07/07/22 20:00 2 07/07/22 19:49 2 07/07/22 14:14 07/07/22 16:00 07/07/22 11:32 2 07/07/22 11:25 PG Care Time/CCT Total # of Minutes Spent Total Time Spent with Patient: Total time spent is greater than 50% in coordination of care (as documented) at patient's floor/unit and/or counseling patient: Coding Level of Care Code 66804 SUB INP/OBS CARE 3/50MIN Diagnoses Human metapneumovirus (hMPV) pneumonia J12.3 COPD (chronic obstructive pulmonary disease) J44.1 COPD type: COPD with acute exacerbation Seizure R56.9 Hypoxia R09.02 Dyslipidemia E78.5 Hypertension I10 Hypertension type: essential hypertension Hypothyroid E03.9 Hypothyroidism type: unspecified Afib I48.91 (2) COPD (chronic obstructive pulmonary disease) COPD type: COPD with acute exacerbation Qualified Code(s): J44.1 - Chronic obstructive pulmonary disease with (acute) exacerbation (6) Hypertension Hypertension type: essential hypertension Qualified Code(s): I10 - Essential (primary) hypertension (7) Hypothyroid Hypothyroidism type: unspecified Qualified Code(s): E03.9 - Hypothyroidism, unspecified
[2022-07-08] MEDS: LEVOTHYROXINE SODIUM 150 MCG TABLET PO SCH (05:58)
[2022-07-08 07:07] LABS: INR 4.1 (0.9-1.1); Prothrombin Time 40.7 Seconds (9.0-12.0)
[2022-07-08] MEDS: guaiFENesin 600 MG TABCR PO SCH ×2 (08:11→19:37)
[2022-07-08] MEDS: levETIRAcetam 500 MG TAB PO SCH ×2 (08:11→19:36)
[2022-07-08] MEDS: AZITHROMYCIN 250 MG TAB PO SCH (08:12)
[2022-07-08] MEDS: SERTRALINE HCL 50 MG TABLET PO SCH (08:12)
[2022-07-08] MEDS: METOPROLOL TARTRATE 25 MG TAB PO SCH ×2 (08:12→19:37)
[2022-07-08] MEDS: TAMSULOSIN HCL 0.4 MG CAP PO SCH (08:12)
[2022-07-08] MEDS: UMECLIDINIUM BROMIDE 62.5MCG/BLISTER 7 PUFFS/INHALER INH SCH (08:12)
--- NOTE | 2022-07-08 10:26 | Hospitalist Progress Note ---
Date of Service July 08, 2022 Assessment & Plan (1) Human metapneumovirus (hMPV) pneumonia: Plan: Acute hypoxic respiratory failure 2/2 human metapneumovirus +/- COPD exacerbation BioFire positive for human metapneumovirus Patient with diminished air movement and expiratory wheezing consistent with virally induced COPD exacerbation, worsened with viral infection, now cleared Patient received Rocephin on admission however antibiotics stopped: aside from azithromycin. Patient denies urinary symptoms. -taper steroids. Concern for PT/INR was elevated from viral infection. normal LFT on admission, given vitamin K po 2.5 minutes (2) COPD (chronic obstructive pulmonary disease): Plan: chronic and ubckear if stable Azithromycin as noted, oxygen to 89% as noted Continue Incruse daily taper steroids (3) Seizure: Plan: History of suspected seizure disorder, patient evaluated for seizure in 2020 in context of UTI. Neuroimaging/EEG without strong support of seizure, but patient was recommended to continue empiric treatment with Keppra twice daily for prophylaxis Keppra 500 mg twice daily continued, level will be a setback No seizures while at [place] since 2019 per [facility] may need EEG if no other issue is noted (4) Hypoxia: Plan: Due to COPD/human metapneumovirus as noted (5) Hypothyroid: Plan: Continue Synthroid, increased as outpatient to 150 mcg daily (6) Afib: Plan: Patient is anticoagulated on warfarin. Home dose is 5.5 mg every evening Supratherapeutic INR on admission with outpatient dose adjustment from 5.0 mg daily to 5.5 mg and poor p.o. intake x3 days given vitamin k 2.5 mg x 1 Echo with normal EF, no significant valve changes CThead normal on admission, cannot consent for MRI, will repeat CT head, repeat urine culture Plan DVT prophylaxis: Anticoagulated on warfarin Diet: Heart healthy Disposition: PCU for initial A-fib RVR and encephalopathy CODE STATUS: Full code Admission and Anticipated Discharge Date Admission Date: July 04, 2022 Subjective pt is confused at times, antidotal guards in room states he typically is clear to mentation, this is not the case today Physical Exam Physical Exam: only oriented to person cardiac is regular lungs are clear abd is soft, some mildly tenderness to RUQ Results & Data Results & Data Vital Signs (Past 12 Hours) Vital Signs Temp Pulse Pulse Resp BP Pulse Ox O2 Del Method 07/08/22 07:41 97.3 F L 60 19 152/80 H 90 Room Air 07/08/22 02:54 97.9 F 67 18 154/88 H 91 Nasal Cannula 07/07/22 23:24 59 L 07/07/22 23:06 97.5 F L 68 18 164/86 H 91 Nasal Cannula O2 Flow Rate 07/08/22 07:41 07/08/22 02:54 2 07/07/22 23:24 07/07/22 23:06 2 Laboratory Results reviewed cbc INR, ordered repeat labs and MRI brain PG Care Time/CCT Total # of Minutes Spent Total Time Spent with Patient: Total time spent is greater than 50% in coordination of care (as documented) at patient's floor/unit and/or counseling patient: Coding Level of Care Code 56941 SUB INP/OBS CARE 3/50MIN Diagnoses Human metapneumovirus (hMPV) pneumonia J12.3 COPD (chronic obstructive pulmonary disease) J44.1 COPD type: COPD with acute exacerbation Seizure R56.9 Hypoxia R09.02 Hypothyroid E03.9 Hypothyroidism type: unspecified Afib I48.91 (2) COPD (chronic obstructive pulmonary disease) COPD type: COPD with acute exacerbation Qualified Code(s): J44.1 - Chronic obstructive pulmonary disease with (acute) exacerbation (5) Hypothyroid Hypothyroidism type: unspecified Qualified Code(s): E03.9 - Hypothyroidism, unspecified
[2022-07-08] MEDS ORDERED: PHYTONADIONE 5 MG TAB PO STA (10:27)
[2022-07-08] MEDS: predniSONE 10 MG TABLET PO SCH (10:36)
[2022-07-08] MEDS: ROSUVASTATIN CALCIUM 20 MG TAB PO SCH (19:38)
--- NOTE | 2022-07-08 20:10 | CT Scan Report ---
Exam(s): CT HEAD Without Contrast EXAM: CT Head Without Intravenous Contrast CLINICAL HISTORY: Reason for exam: eval for hemorrhage. TECHNIQUE: Axial computed tomography images of the head/brain without intravenous contrast. CTDI is 38.64 mGy and DLP is 546.36 mGy-cm. Automated exposure control was utilized for the study. A dose lowering technique was utilized adhering to the principles of ALARA. COMPARISON: CT head on 07/04/2022 FINDINGS: Brain: No acute infarct or hemorrhage identified. No extra-axial fluid collection. No mass effect or midline shift. Scattered areas of hypoattenuation in the supratentorial white matter likely represent chronic small vessel ischemic changes. Ventricles and sulci: Prominence of the ventricles and sulci is likely secondary to cerebral volume loss. Bones: Normal. No bony lesion or acute fracture. Subcutaneous tissues: Normal. Sinuses: Mild mucosal thickening in the ethmoid air cells and right sphenoid sinus. Mild mucosal thickening in the left frontal sinus. Mastoid air cells: Normal. Orbits: Grossly unremarkable. Other: Atherosclerotic calcifications in the intracranial vasculature. IMPRESSION: 1. No acute intracranial abnormality. 2. Chronic small vessel ischemic changes and cerebral volume loss. Electronically signed by: Cleo Mario M.D. 07/08/22 20:10 PM
[2022-07-09] MEDS: LEVOTHYROXINE SODIUM 150 MCG TABLET PO SCH (05:40)
[2022-07-09 06:07] LABS: Hematocrit (blood only) 41.1 % (42.0-52.0); Hemoglobin 14.2 g/dl (14.0-18.0); Mean Corpuscular Hemoglobin 29.2 pg (25.0-34.0); Mean Corpuscular Hgb Conc 34.5 g/dL (32.0-36.0); Mean Corpuscular Volume 84.4 fL (80.0-100.0); Mean Platelet Volume 9.4 fL (9.4-12.4); Platelet Count 325 K/uL (130-400); RDW Coefficient of Variation 14.8 % (11.5-14.5); RDW Standard Deviation 44.9 fL (36.4-46.3); Red Blood Count 4.87 M/uL (4.70-6.10); White Blood Count 14.65 K/ul (4.8-10.8)
[2022-07-09 06:25] LABS: Albumin Globulin Ratio 1.1 (0.9-2); Albumin Level 3.5 gm/dl (3.4-5.0); BUN Creatinine Ratio 31.5 (10-20); Bilirubin,Total 0.7 mg/dl (0.2-1.0); Calcium 8.4 mg/dl (8.6-10.3); Creatinine Clr Calc Pharmacy 69.4 ml/min; Est GFR (African American) 96.9 ml/min; Est GFR (Non-African American) 83.6 ml/min; Globulin 3.1 gm/dl (2.5-4.0); Potassium 4.1 mmol/L (3.5-5.1); Total Protein 6.6 gm/dl (6.0-8.3)
[2022-07-09 06:38] LABS: INR 1.3 (0.9-1.1); Prothrombin Time 14.2 Seconds (9.0-12.0)
--- NOTE | 2022-07-09 07:51 | Hospitalist Progress Note ---
Date of Service July 09, 2022 Assessment & Plan (1) Human metapneumovirus (hMPV) pneumonia: Plan: Acute hypoxic respiratory failure 2/2 human metapneumovirus +/- COPD exacerbation BioFire positive for human metapneumovirus Patient with diminished air movement and expiratory wheezing consistent with virally induced COPD exacerbation, initially worsened with viral infection, now cleared Patient received Rocephin on admission however antibiotics stopped: aside from azithromycin. Patient denies urinary symptoms. -taper steroids. Concern for PT/INR was elevated from viral infection. normal LFT on admission, given vitamin K po 2.5 minutes (2) COPD (chronic obstructive pulmonary disease): Plan: chronic and unclear if stable Azithromycin as noted, oxygen to 89% as noted Continue Incruse daily taper steroids (3) Seizure: Plan: History of suspected seizure disorder, patient evaluated for seizure in 2019 in context of UTI. Neuroimaging/EEG without strong support of seizure, but patient was recommended to continue empiric treatment with Keppra twice daily for prophylaxis Keppra 500 mg twice daily continued, level will be a setback No seizures while at [place] since 2018 per [facility] may need EEG if no other issue is noted (4) Hypoxia: Plan: Due to COPD/human metapneumovirus as noted (5) Hypothyroid: Plan: Continue Synthroid, increased as outpatient to 150 mcg daily (6) Afib: Plan: Patient is anticoagulated on warfarin. Home dose is 5.5 mg every evening Supratherapeutic INR on admission with outpatient dose adjustment from 5.0 mg daily to 5.5 mg and poor p.o. intake x3 days given vitamin k 2.5 mg x 1 Echo with normal EF, no significant valve changes CThead normal on admission, cannot consent for MRI, will repeat CT head, repeat urine culture Plan DVT prophylaxis: Anticoagulated on warfarin Diet: Heart healthy Disposition: PCU for initial A-fib RVR and encephalopathy CODE STATUS: Full code Admission and Anticipated Discharge Date Admission Date: July 04, 2022 Results & Data Results & Data Vital Signs (Past 12 Hours) Vital Signs Temp Pulse Pulse Pulse Resp BP Pulse Ox 07/09/22 07:43 98.1 F 64 18 161/90 H 91 07/09/22 03:00 97.7 F 70 18 135/75 92 07/08/22 23:00 97.7 F 62 18 145/96 H 93 07/08/22 23:06 75 07/08/22 20:00 O2 Del Method 07/09/22 07:43 Room Air 07/09/22 03:00 Room Air 07/08/22 23:00 Room Air 07/08/22 23:06 07/08/22 20:00 Room Air PG Care Time/CCT Total # of Minutes Spent Total Time Spent with Patient: Total time spent is greater than 50% in coordination of care (as documented) at patient's floor/unit and/or counseling patient: Coding Diagnoses Human metapneumovirus (hMPV) pneumonia J12.3 COPD (chronic obstructive pulmonary disease) J44.1 COPD type: COPD with acute exacerbation Seizure R56.9 Hypoxia R09.02 Hypothyroid E03.9 Hypothyroidism type: unspecified Afib I48.91 (2) COPD (chronic obstructive pulmonary disease) COPD type: COPD with acute exacerbation Qualified Code(s): J44.1 - Chronic obstructive pulmonary disease with (acute) exacerbation (5) Hypothyroid Hypothyroidism type: unspecified Qualified Code(s): E03.9 - Hypothyroidism, unspecified
--- NOTE | 2022-07-09 08:46 | Neurology Consultation ---
Date of Consultation July 09, 2022 Assessment & Plan (1) Delirium due to general medical condition: Presentation is consistent with delirium, likely secondary to hospitalization, noted sleep wake cycle disturbance. He does not have any focal deficits to suggest a central process. No report of seizures. He is not on any medications that could cause delirium and labs are unremarkable. Suspect he is clearing but would maintain delirium standards - out of bed when possible, natural light, reorientation, strict bedtime. Telehealth Consultation Telehealth Information Telehealth Information: I performed this visit using a real-time telehealth connection between my location and the patients location ([facility]). After connecting through interactive tele-video, patient was identified by name and date of and/or wristband check.Patient (or authorized healthcare financial services representative) was informed that this was a telemedicine visit and it was being conducted confidentially over secure lines. My office door was closed and no one else was present in the room with me.Patient (or authorized healthcare financial services representative) provided consent to proceed with the visit, expressed an understanding of privacy and security of the telemedicine visit, and gave permission to have a hospital financial services representative in the room in order to assist with the visit and to conduct portions of the visit, as needed. I informed the patient (or authorized healthcare financial services representative) that I reviewed their record and presented the opportunity for them to ask any questions regarding the visit today. The patient agreed to participate. History of Present Illness Reason for Consultation: Confusion Requesting Physician: Dr. Diaz Attending Physician: Mathieu Diaz MD History of Present Illness Ted Irvin is a 77 yo M presenting from [facility] with shortness of breath in in the setting of pneumonia with COPD. The patient has otherwise recovered from his infection but remains confused. Per guards who were able to provide collateral history, he has not been sleeping well at night and is less oriented than at baseline. He lives in a dorm with other inmates of similar ages and is independent. The patient denies any confusion and states that he feels well. He denies any focal weakness, numbness, speech change, vision change or headache. He reports a seizure history but denies any recent seizures. Allergies Allergy/AdvReac Type Severity Reaction Status Date / Time No Known Allergies Allergy Verified 07/01/19 19:55 Home Medications Medication Instructions Recorded Confirmed Type levalbuterol tartrate 45 2 inh inhalation QID 07/01/19 07/04/22 History mcg/actuation aerosol inhaler (Xopenex HFA) rosuvastatin 40 mg tablet 40 mg PO QPM 07/01/19 07/04/22 History sertraline 25 mg tablet 75 mg PO QAM 07/01/19 07/04/22 History polyethylene glycol 3350 17 gram 17 g PO BID #60 ea 07/07/19 07/04/22 Rx oral powder packet (Miralax) levetiracetam 500 mg tablet 500 mg PO BID 07/04/22 07/04/22 History (Keppra) levothyroxine 150 mcg tablet 150 mcg PO DAILY 07/04/22 07/04/22 History (Synthroid) tamsulosin 0.4 mg capsule (Flomax) 0.4 mg PO DAILY 07/04/22 07/04/22 History umeclidinium 62.5 mcg/actuation 1 inh inhalation DAILY 07/04/22 07/04/22 History blister powder for inhalation (Incruse Ellipta) warfarin 2.5 mg tablet 2.5 mg PO DAILY 07/04/22 07/04/22 History warfarin 3 mg tablet 3 mg PO DAILY 07/04/22 07/04/22 History Patient History Medical History (Updated 07/09/22 @ 09:15 by Matt Casiano MD) COPD (chronic obstructive pulmonary disease) Dyslipidemia Hypertension Hypothyroid Neurocognitive disorder Family History Sister Seizures Other No significant family history Social History Smoking Status: Current every day smoker Tobacco Type: E-cigarettes / Vaping Cigarettes Per Day: 1; Hx Alcohol Use: No Hx Substance Use: No Preferred Language: Wallisian Communication Ability: Unable Spinneret Cleaner Required: No Beliefs That Will Affect Care: None Current Living Situation: Other Current Living Situation Comment: [facility] Other Information That Helps Us Care for You: No Feels Safe at Home: Yes Safety Concerns: Feels Safe At This Time Assistive Devices: None Review of Systems Negative Physical Exam Neurological Examination: Mental Status: Awake and alert. Oriented to person, and time. Recall 2/5 at 2 minutes. Fluent. Comprehension intact. Affect appropriate. Cranial Nerves: II: Reads NIHSS cards, pupils 3/3 to 2/2, III/IV/: Versions intact without nystagmus, no gaze preference. V: Facial sensation symmetric to light touch VII: Facial expression symmetric VIII: Hearing intact to voice IX/X: Palate elevates symmetrically XI: Shoulder shrug symmetric XII: Tongue midline Motor: Strength was symmetric and antigravity throughout. Pronator drift was absent. There were no abnormal movements. Results & Data Vital Signs (Past 12 Hours) Vital Signs Temp Pulse Pulse Pulse Resp BP Pulse Ox 07/09/22 07:43 36.7 C 64 18 161/90 H 91 07/09/22 03:00 36.5 C 70 18 135/75 92 07/08/22 23:00 36.5 C 62 18 145/96 H 93 07/08/22 23:06 75 O2 Del Method 07/09/22 07:43 Room Air 07/09/22 03:00 Room Air 07/08/22 23:00 Room Air 07/08/22 23:06 Laboratory Results Abnormal lab results 07/09/22 07/09/22 07/09/22 Range/Units 05:52 05:52 05:52 WBC 14.65 H (4.8-10.8) K/ul Hct 41.1 L (42.0-52.0) % RDW Coeff of Merry 14.8 H (11.5-14.5) % PT 14.2 H (9.0-12.0) Seconds INR 1.3 H (0.9-1.1) BUN 28 H (6-23) mg/dl BUN/Creatinine Ratio 31.5 H (10-20) Calcium 8.4 L (8.6-10.3) mg/dl Diagnostic Findings CT head unremarkable Medications Administered Home Medications Medication Instructions Recorded Confirmed Last Taken levalbuterol tartrate 45 2 inh inhalation QID 07/01/19 07/04/22 06/18/19 mcg/actuation aerosol inhaler (Xopenex HFA) rosuvastatin 40 mg tablet 40 mg PO QPM 07/01/19 07/04/22 07/01/19 sertraline 25 mg tablet 75 mg PO QAM 07/01/19 07/04/22 07/01/19 polyethylene glycol 3350 17 gram 17 g PO BID #60 ea 07/07/19 07/04/22 Unknown oral powder packet (Miralax) levetiracetam 500 mg tablet 500 mg PO BID 07/04/22 07/04/22 Unknown (Keppra) levothyroxine 150 mcg tablet 150 mcg PO DAILY 07/04/22 07/04/22 Unknown (Synthroid) tamsulosin 0.4 mg capsule (Flomax) 0.4 mg PO DAILY 07/04/22 07/04/22 Unknown umeclidinium 62.5 mcg/actuation 1 inh inhalation DAILY 07/04/22 07/04/22 Unknown blister powder for inhalation (Incruse Ellipta) warfarin 2.5 mg tablet 2.5 mg PO DAILY 07/04/22 07/04/22 Unknown warfarin 3 mg tablet 3 mg PO DAILY 07/04/22 07/04/22 Unknown Active Medications Generic Name Dose Route Start Last Admin Trade Name Freq PRN Reason Stop Dose Admin Guaifenesin 1,200 mg 07/04/22 21:00 07/08/22 19:37 Guaifenesin 600 Mg Tabcr PO 08/03/22 20:59 1,200 mg BID KAREN Administration Levetiracetam 500 mg 07/04/22 21:00 07/08/22 19:36 Levetiracetam 500 Mg Tab PO 08/03/22 20:59 500 mg BID KAREN Administration Levothyroxine Sodium 150 mcg 07/05/22 06:30 07/09/22 05:40 Levothyroxine Sodium 150 Mcg Tablet PO 08/04/22 06:29 150 mcg DAILYBB KAREN Administration Metoprolol Tartrate 12.5 mg 07/04/22 21:00 07/08/22 19:37 Metoprolol Tartrate 25 Mg Tab PO 08/03/22 20:59 12.5 mg BID KAREN Administration Prednisone 30 mg 07/08/22 09:00 07/08/22 10:36 Prednisone 10 Mg Tablet PO 08/07/22 08:59 30 mg DAILY KAREN Administration Rosuvastatin Calcium 40 mg 07/04/22 21:00 07/08/22 19:38 Rosuvastatin Calcium 20 Mg Tab PO 08/03/22 20:59 40 mg QPM KAREN Administration Sertraline HCl 75 mg 07/05/22 09:00 07/08/22 08:12 Sertraline Hcl 50 Mg Tablet PO 08/04/22 08:59 75 mg QAM KAREN Administration Tamsulosin HCl 0.4 mg 07/05/22 09:00 07/08/22 08:12 Tamsulosin Hcl 0.4 Mg Cap PO 08/04/22 08:59 0.4 mg DAILY KAREN Administration Umeclidinium [place] 1 puffs 07/05/22 09:00 07/08/22 08:12 Umeclidinium [place] 62.5mcg/Blister 7 Puffs/Inhaler INH 08/04/22 08:59 1 puffs DAILY KAREN Administration
[2022-07-09] MEDS: UMECLIDINIUM BROMIDE 62.5MCG/BLISTER 7 PUFFS/INHALER INH SCH (09:41)
[2022-07-09] MEDS: levETIRAcetam 500 MG TAB PO SCH (09:41)
[2022-07-09] MEDS: predniSONE 10 MG TABLET PO SCH (09:41)
[2022-07-09] MEDS: guaiFENesin 600 MG TABCR PO SCH (09:41)
[2022-07-09] MEDS: TAMSULOSIN HCL 0.4 MG CAP PO SCH (09:41)
[2022-07-09] MEDS: SERTRALINE HCL 50 MG TABLET PO SCH (09:41)
[2022-07-09] MEDS: METOPROLOL TARTRATE 25 MG TAB PO SCH (09:41)
--- NOTE | 2022-07-09 16:02 | Discharge Summary ---
Date of Service July 09, 2022 Admission HPI Per Admitting Provider Ted is a 77-year-old male with past medical history of hyperlipidemia, COPD, hypothyroidism, cognitive decline last admitted 2019 for urosepsis who presents to the ER for evaluation of shortness of breath. On ER arrival patient was found to be more confused than his normal baseline and cyanotic, patient was tachycardic to the 160s for which patient received adenosine and subsequently an EKG which showed A-fib. Patient was given a fluid bolus, empiric antibiotics, and UA/CT were ordered. Initial ER labs: No leukocytosis Hemoglobin 11.1, baseline 2019 10.211.5 VBG 7.3 // No sodium/potassium derangement Creatinine baseline last around 1.1, admitting creatinine 1.25 BUN/creatinine ratio 21 consistent with volume contraction Troponin high-sensitivity 32.6 Procalcitonin pending Bio fire Positive for human metapneumovirus CXR: No acute finding - Afib: Afib RVR, ST atnerolateral sepressions, nonsepcific T wave changes Repeat EKG normal sinus rhythm -INR: 5.5, patient is on warfarin 5 mg every afternoon - Procalcitonin 1.04 Patient is extremely hard of hearing. Per report [facility] with hypotension/tachycardia. Hx COPD. +acute on chronic confusion. ? restricted air movement. Past admits for UTI tx empirically with sepsis due to prostatitis 2019 --> tx rocephin given empirically in ER. Patient with rapid heart rate for which he received 1 L of NSS and Cardizem. Subsequently converted to sinus rhythm with a rate in the 80s. Discussed with [facility] by phone who confirmed Poor appetite x2 days, cellmate brought down for not eating since . Poor PO intake, not drinking well. Pt feel dry. Afebrile at [facility]. FOund to be tachycardia >130s. Baseline mentation is with [place] and some confusion but normally oriented to year/place and relatively appropriate. Patient is seen at the bedside, reports he feels improved since coming in. He is oriented to place and month on reassessment. Denies pain. Denies shortness of breath. He reports he has no appetite, but no nausea/vomiting/diarrhea. At time of assessment he denies chest pain, chest pressure, palpitations, lightheadedness, or shortness of breath. Endorses some cough with clear sputum production. Is not sure how long this has been worse for. Medical History: Reviewed Medications: Reviewed Surgical History: Reviewed Family history: Reviewed Allergies: Reviewed Social History: Reviewed Code Status: Full Code Meds Confirmed by [facility]: Xjordynex. Incruse Ellipta 62.5mcg, Keppra 500mg BID (hx of seizures, none observed at [facility] since 2019), synthroid 150mcg, lisinopril 5mg daily, singulair 10mg daily, crestor 50mg hs, 75 sertraline daily. Flomax 0.4mg qHS, coumadin 2.5 tab and 3mg tab every day,, Principal Diagnosis Human metapneumovirus Supratherapeutic INR Atrial fibrillation RVR now controlled Hospital delirium superimposed on dementia Discharge Exam Patient is pleasantly confused not oriented to place but oriented to person Cardiac exam is irregular but rate controlled lungs are clear Neurologically he can respond to questions and commands there is no neurological deficit other than his memory Discharge Data Allergies Allergy/AdvReac Type Severity Reaction Status Date / Time No Known Allergies Allergy Verified 07/01/19 19:55 Consultations 07/04/22 11:31 ED Decision to Admit Stat 07/09/22 07:51 Consult Neurology Routine Ordered Studies 07/04/22 09:37 CT head/brain wo con Stat 07/08/22 18:53 CT head/brain wo con Routine Hospital Course (1) Human metapneumovirus (hMPV) pneumonia: Acute hypoxic respiratory failure 2/2 human metapneumovirus +/- COPD exac erbation BioFire positive for human metapneumovirus Patient improved with regard to his virally induced COPD exacerbation, will complete prednisone tapering dose as an outpatient Patient received Rocephin on admission however antibiotics stopped: aside from azithromycin. Patient denies urinary symptoms. Concern for PT/INR was elevated from viral infection. normal LFT on admission, given vitamin K po 2.5 minutes reversal of INR now to 1.3 resume previous outpatient Coumadin or consider DOAC at the present if on formulary (2) COPD (chronic obstructive pulmonary disease): chronic and unclear if stable Azithromycin as noted, oxygen to 89% as noted Continue Incruse daily taper steroids (3) Seizure: History of suspected seizure disorder, patient evaluated for seizure in 2019 in context of UTI. Neuroimaging/EEG without strong support of seizure, but patient was recommended to continue empiric treatment with Keppra twice daily for prophylaxis Keppra 500 mg twice daily continued, level will be a setback No seizures while at [place] since [address] [facility] Neurology evaluated patient does not feel patient would benefit from EEG recommends continuing Keppra therapy (4) Hypoxia: Due to COPD/human metapneumovirus as noted (5) Hypothyroid: Continue Synthroid, increased as outpatient to 150 mcg daily (6) Afib: Patient is anticoagulated on warfarin. Home dose is 5.5 mg every evening Supratherapeutic INR on admission with outpatient dose adjustment from 5.0 mg daily to 5.5 mg and poor p.o. intake x3 days given vitamin k 2.5 mg x 1 Echo with normal EF, no significant valve changes CThead normal on admission, cannot consent for MRI, will repeat CT head, repeat urine culture Plan Patient desires to be full code we will continue Total Time Total Time Spent Total Time Spent (In Minutes): It required greater than 30 minutes to prepare this patient for discharge Discharge Plan Discharge Items [facility]position[facility] Reason For Visit: AFIB RVR, AHRF 2/2 HUMAN METAPNEUMOVIRUS +/- COPD Discharge Diagnosis: Human metapneumovirus Supratherapeutic INR Atrial fibrillation RVR now controlled Hospital delirium superimposed on dementia Activity: Resume your previous activity Non-emergency contact: Primary Care Provider Call non-emergency contact if: your symptoms worsen [facility] - Diet: Regular Addtl Attending Provider Instructions: Please continue to resume and monitor his Coumadin therapy for VT prevention for A-fib. Alternatively could consider formulary equivalent DOAC With regard to his metapneumovirus his symptoms have improved respiratory status was stabilized Pending Studies at Discharge: No Stand-Alone Forms: [facility] Skilled Items Patient informed of condition?: Yes Discharge Level of Care: Other Communicable Disease: No Discharge Prognosis: Stable Lines: None Urinary Catheter: No Medications and DC Order Prescriptions: New metoprolol tartrate 25 mg Tablet 12.5 mg PO BID Qty: 60 0RF prednisone 10 mg tablet 10 mg PO DIRECTED Qty: 24 0RF Rx Instructions: 3 a day x 4 d>2 a day x 4 d>1 a day Continued sertraline 25 mg Tablet 75 mg PO QAM rosuvastatin 40 mg Tablet 40 mg PO QPM levalbuterol tartrate [Xopenex HFA] 45 mcg/actuation Hfa Aerosol Inhaler 2 inh INHALATION QID polyethylene glycol 3350 [Miralax] 17 gram Powder In Packet 17 g PO BID Qty: 60 0RF levetiracetam [Keppra] 500 mg Tablet 500 mg PO BID warfarin 2.5 mg Tablet 2.5 mg PO DAILY Rx Instructions: Takes 2.5 + 3.0mg daily for total 5.5mg warfarin 3 mg Tablet 3 mg PO DAILY Rx Instructions: Takes 2.5 + 3.0mg daily for total 5.5mg tamsulosin [Flomax] 0.4 mg Capsule 0.4 mg PO DAILY levothyroxine [Synthroid] 150 mcg Tablet 150 mcg PO DAILY Incruse Ellipta 62.5 mcg/actuation Blister With Device 1 inh INHALATION DAILY Discharge Orders: Discharge Order (Routine); Ordered 07/09/22 Ordered By: Mathieu Diaz Admission Data Admit Date/Time: 07/04/22 12:02 Attending Provider: Mathieu Diaz Admit Provider: Rafal Vázquez Primary Care Provider: Manuelito HIDALGO Other Providers: Rafal Vázquez Other Interventions: Discharge Summary Assessment (RN) Last Done: 07/09/22 13:43 Coding Level of Care Code 00902 INP/OBS DISCH >30 MIN Diagnoses Human metapneumovirus (hMPV) pneumonia J12.3 COPD (chronic obstructive pulmonary disease) J44.1 COPD type: COPD with acute exacerbation Seizure R56.9 Hypoxia R09.02 Hypothyroid E03.9 Hypothyroidism type: unspecified Afib I48.91
--- NOTE | 2022-07-11 13:18 | Coding Query ---
CODING QUERY To promote full compliance with coding requirements relating to patient care, provider participation is requested in all cases of english composition teacher uncertainty. Please assist us with the question(s) below: Coding Question(s): The medical record reflects the following clinical evidence: Clinical Indicators: HS troponins of 25-33 pg/ml in the setting of AF with RVR Risk Factor(s): AF with RVR. hypotension associated with AF RVR, age, gender, hypertension, smoking history/COPD, dyslipidemia Treatment: IVF, adenosine, Lopressor, Cardizem, serial EKG's, echocardiogram Please clarify and document your clinical opinion below, including the definitive and/or presumptive diagnosis, (suspected or probable), related to the above clinical findings. demand ischemia Physician's Response(s): Thank you for your time, RICA Aiken, [facility]
== END 2022-07-09 16:02 | DRG 193 ==
LOC: ED 09:25 → 2S 12:02 → SUATTDRO 12:02 → 2S 15:44 → 2E 07-05 00:05